=== PATIENT | male | born 1930 | race Caucasian/White ===

== ENCOUNTER 2016-11-20 01:31 | Inpatient (IN) | payer OTHER, MEDICARE ==
[~2016-11-20] VITALS: Ht 172.7 cm; Wt 101.2 kg
[~2016-11-20 01:31] MED LIST: AUGMENTIN 875 M1 TAB PO; FLOMAX(MONOGRA0.4 MG PO; FUROSEMIDE20 M1 PO; GABAPENTIN100 M2 PO; HYDROCODON-ACE1 EAC3 PO; LISINOPRIL10 M1 PO; LOTRIMIN CR1 %/30 GM TOP; METFORMIN HCL1000 M1 PO; METOPROLOL SUCC25 M1 PO; METOPROLOL TART25 M1 PO; PIOGLITAZONE HC30 M1 PO; SIMVASTATIN40 M1 PO; SPIRIVA18 MCG INH; VENTOLIN HFA18 GM INH; WARFARIN SODIUM5 M1 PO
--- NOTE | 2016-11-20 01:34 | ED DYSPNEA/ASTHMA COMPLAINT ---
History of Present Illness General Chief Complaint: Dyspnea (COPD, CHF, Other) Stated Complaint: BIBA FOR SOB Source: patient, old records, EMS Exam Limitations: clinical condition Vital Signs & Intake/Output Vital Signs & Intake/Output Vital Signs Date Time Temp Pulse Resp B/P Pulse O2 O2 Flow FiO2 Ox Delivery Rate 11/20 0304 97 BIPAP 50% 11/20 0150 67 97 11/20 0134 99.4 72 24 193/86 98 CPAP 10L Allergies Coded Allergies: NO KNOWN ALLERGIES (12/27/13) Reconcile Medications Albuterol Sulfate (Ventolin Hfa) 18 GM HFA.AER.AD 2 PUF INH TIDPRN PRN SHORTNESS OF BREATH Furosemide 20 MG TABLET 20 MG PO 7:30 AM, & 4:30 PM CHF Gabapentin 100 MG CAPSULE 200 MG PO TID pain Hydrocodone/Acetaminophen (Hydrocodon-Acetaminoph 7.5-325) 1 EACH TABLET 1-2 TAB PO Q4-6 PRN PRN PAIN Lisinopril 10 MG TABLET 1 TAB PO DAILY HEART (Reported) Metformin HCl 1,000 MG TABLET 1 TAB PO BID DIABETES (Reported) Metoprolol Tartrate 25 MG TABLET 6.25 TAB PO BID HEART Simvastatin (Simvastatin*) 40 MG TABLET 1 TAB PO QPM CHOLESTEROL (Reported) Tamsulosin Hydrochloride (Flomax) 0.4 MG CAP.ER.24H 1 CAP PO DAILY bph Tiotropium [place] (Spiriva) 18 MCG CAP.W.DEV 1 PUF INH 1000 copd Warfarin Sodium 5 MG TABLET 1 TAB PO 1700 BLOOD THINNER (Reported) Triage Nurses Notes Reviewed? yes Onset: Abrupt Duration: hour(s): Timing: single episode today Severity: moderate, severe Activities at Onset: sleep Prior Episodes/Possible Cause: occasional episodes Modifying Factors: Improves With: other (BETTER WITH cpap IN ROUTE). Associated Symptoms: DYSPNEA HPI: 86-year-old gentleman history of diastolic dysfunction and aortic stenosis presents with sudden onset of dyspnea. He states that he had a colonoscopy 4 days ago. It went well. However, since then, he has had worsening dyspnea. Approximate one hour prior presentation to the ED, he awoke with worse dyspnea. 911 was called. The medics found him with an O2 sat of 76%. He was placed on CPAP immediately. Per the medics, "he immediately started breathing better. When we took him off to transfer him into the ED, she started having a rapid respiratory rate again." He arrives with significant respiratory distress, unable to speak in complete sentences. However, he denies chest pain, increased swelling of lower extremities, cough, phlegm, syncopal type symptoms. Past History Travel History Traveled to [place] past 21 day No Medical History Any Pertinent Medical History? see below for history Neurological: NEUROPATHY Cardiovascular: aortic stenosis, cardiomyopathy, CHF, hypertension, hyperlipidemia, PACEMAKER Musculoskeletal: ARTHRITIS Endocrine: diabetes History of MRSA: No History of VRE: No History of CDIFF: No Surgical History Surgical History: non-contributory Psychosocial History Who do you live with Spouse What is your primary language Gibraltarian Family History Hx Contributory? No Review of Systems Review of Systems Constitutional: Reports: no symptoms. EENTM: Reports: no symptoms. Respiratory: Reports: no symptoms. Cardiovascular: Reports: no symptoms. GI: Reports: no symptoms. Genitourinary: Reports: no symptoms. Musculoskeletal: Reports: no symptoms. Skin: Reports: no symptoms. Neurological/Psychological: Reports: no symptoms. Hematologic/Endocrine: Reports: no symptoms. Immunologic/Allergic: Reports: no symptoms. All Other Systems: Reviewed and Negative Physical Exam Physical Exam General Appearance: well developed/nourished, moderate distress Head: atraumatic, normal appearance Eyes: Bilateral: normal appearance. Ears, Nose, Throat: normal pharynx, normal ENT inspection, hearing grossly normal Neck: normal inspection, supple, full range of motion Respiratory: accessory muscle use, DIMINISHED BREATH SOUNDS AT BASES, MODERATE RESPIRATORY DISTRESS WITH BELLY BREATHING Cardiovascular: regular rate/rhythm Gastrointestinal: normal bowel sounds, soft, non-tender, no organomegaly Extremities: normal inspection, normal capillary refill, normal range of motion, TRACE EDEMA Neurologic/Psych: no motor/sensory deficits, awake, alert, oriented x 3 Skin: intact, normal color, warm/dry Core Measures ACS in differential dx? No Severe Sepsis Present: No Septic Shock Present: No Progress Differential Diagnosis: asthma, AMI, bronchitis, CHF, COPD, musculoskeletal pain , pneumonia Plan of Care: Orders Procedure Date/time Status Patient Data 11/20 0431 Active BIPAP 11/20 0150 Complete PARTIAL THROMBOPLASTIN TIME 11/20 0141 Complete PROTHROMBIN TIME 11/20 0141 Complete BLOOD CULTURE 11/20 0140 Active ARTERIAL BLOOD GAS (GEN) 11/20 0138 Complete BLOOD CULTURE 11/20 0138 Active TROPONIN LEVEL 11/20 137 Complete LIPASE 11/20 137 Complete HEPATIC FUNCTION PANEL 11/20 137 Complete CBC WITHOUT DIFFERENTIAL 11/20 137 Complete B-TYPE NATRIURETIC PEP (BNP) 11/20 137 Complete BASIC METABOLIC PANEL 11/20 137 Complete AMYLASE 11/20 137 Complete EKG 11/20 132 Active Laboratory Tests 11/20/16 0300: pH 7.42, pCO2 39, pO2 99, HCO3 25, ABG O2 Sat (Measured) 97.0, P-50 (Temp Corrected) N, Carboxyhemoglobin 0.3 L, O2 Concentration % .50, Respiration Rate 24, O2 Delivery Method BIPAP, Vent Mode ST, Expiratory Pressure 6, Inspiratory Pressure 20, Phlebotomy Draw Site RIGHT RADIAL 11/20/16155: Anion Gap 10, Estimated GFR > 60, BUN/Creatinine Ratio 16.3, Glucose 159 H, Calcium 8.6, Total Bilirubin 1.7 H, Direct Bilirubin 0.9 H, AST 52, ALT 46, Alkaline Phosphatase 175 H, Troponin I 0.02, Cxx-W-Rlyqbxyfcsj Pept 1070 H, Total Protein 7.1, Albumin 3.3 L, Amylase 41, Lipase 154, PT 17.6 H, INR 1.68 H, APTT 31, CBC w Diff NO MAN DIFF REQ, RBC 3.91 L, MCV 88.2, MCH 28.8, RDW 15.3 H, MPV 7.4, Gran % 75.8 H, Lymphocytes % 11.5 L, Monocytes % 11.9 H, Eosinophils % 0, Basophils % 0.8, Absolute Granulocytes 9.4 H, Absolute Lymphocytes 1.4, Absolute Monocytes 1.5 H, Absolute Eosinophils 0, Absolute Basophils 0.1, PUBS MCHC 32.7 L Microbiology 11/20 158 BLOOD: Blood Culture - RECD 11/20 154 BLOOD: Blood Culture - RECD Diagnostic Imaging: Viewed by Me: Radiology Read. Discussed w/RAD: Radiology Read. CXR Impression: pulmonary edema Initial ED EKG: PACED Comments: PATIENT: NANDO HINSON PRESENT AGE: 86 PATIENT ACCOUNT NO: [id number] : 31 LOCATION: [facility] ORDERING PHYSICIAN: RUBENS CASTRO MD SERVICE DATE: 11/20/16 EXAM TYPE: RAD - XRY-PORTABLE CHEST XRAY EXAMINATION: XR PORTABLE CHEST CLINICAL INFORMATION: Dyspnea COMPARISON: 11/14/2016 TECHNIQUE: Portable AP view of the chest was obtained. FINDINGS: Pacer generators are seen in both the left and right chest wall with leads unchanged in positioning. Cardiac leads overlie the chest. Low lung volumes. Perihilar hazy opacities with small pleural effusions are present. Bibasilar opacities associated. No pneumothorax. The cardiomediastinal silhouette remains prominent, with a calcified aorta. IMPRESSION: Findings most suggestive of pulmonary edema. Small pleural effusions. DICTATED BY: GREG OCASIO MD DATE/TIME DICTATED:11/20/16355 ELECTRICAL AND INSTRUMENTATION MANAGER:ZACK DATE/TIME TRANSCRIBED:11/20/16355 CONFIDENTIAL, DO NOT COPY WITHOUT APPROPRIATE AUTHORIZATION. <Electronically signed in Other Vendor System> SIGNED BY: GREG OCASIO MD 11/20 0404 Departure Departure Disposition: STILL A PATIENT Condition: Stable Clinical Impression Primary Impression: Flash pulmonary edema Referrals: CHERYL JESUS MD (PCP/Family) Departure Forms: Customer Survey General Discharge Information Admission Note Spoke With: LINETTE NIETO MD Documentation of Exam: Documentation of any treatments & extenuating circumstances including Concerns Regarding Discharge (functional status, medication knowledge or non-compliance, living conditions, etc.) that warrant an admission rather than observation: pt with flash pulmonary edema, with 02 sat 76% in the field, requiring bipap, nitrates, lasix... now feeling better... stable for tele. cards consult in AM. Critical Care Note Critical Care Note Critical Care Time: 30-74 min
[2016-11-20 03:08] LABS: ABSOLUTE BASOPHIL COUNT 0.1 /CUMM (0.0-0.2); ABSOLUTE EOSINOPHIL COUNT 0 /CUMM (0.0-0.7); ABSOLUTE GRANULOCYTE CT 9.4 /CUMM (1.4-6.5); ABSOLUTE LYMPH COUNT 1.4 /CUMM (1.2-3.4); ABSOLUTE MONOCYTE COUNT 1.5 /CUMM (0.10-0.60); BASOPHIL % 0.8 % (0.0-2.0); EOSINOPHIL % 0 % (0-5); GRANULOCYTE % 75.8 % (42.2-75.2); HEMATOCRIT 34.5 % (42-52); MEAN CORPUSCULAR HGB 28.8 PG (27.0-31.0); MEAN CORPUSCULAR HGB CONC 32.7 G/DL (33.0-37.0); MEAN CORPUSCULAR VOLUME 88.2 FL (80.0-94.0); MEAN PLATELET VOLUME 7.4 FL (7.4-10.4); PLATELET COUNT 252 /CUMM (130-400); RBC DISTRIBUTION WIDTH 15.3 % (11.5-14.5); RED BLOOD CELL CT 3.91 /CUMM (4.70-6.10); WHITE BLOOD CELL COUNT 12.4 /CUMM (4.8-10.8)
[2016-11-20 03:29] LABS: PT 17.6 SEC (9.4-12.5); PTT 31 SEC (25-37)
--- NOTE | 2016-11-20 04:04 | RADIOLOGY REPORT ---
EXAMINATION: XR PORTABLE CHEST CLINICAL INFORMATION: Dyspnea COMPARISON: 11/14/2016 TECHNIQUE: Portable AP view of the chest was obtained. FINDINGS: Pacer generators are seen in both the left and right chest wall with leads unchanged in positioning. Cardiac leads overlie the chest. Low lung volumes. Perihilar hazy opacities with small pleural effusions are present. Bibasilar opacities associated. No pneumothorax. The cardiomediastinal silhouette remains prominent, with a calcified aorta. IMPRESSION: Findings most suggestive of pulmonary edema. Small pleural effusions.
--- NOTE | 2016-11-20 05:33 | History & Physical ---
SANTY MIXON,SUKUMAR 11/20/16 0533: General Information and HPI History of Present Illness: 86-year-old man with past medical history significant for congestive heart failure status post pacemaker, sick sinus syndrome, aortic stenosis, cardiomyopathy, atrial fibrillation and probable COPD seen for evaluation of slowly progressive worsening shortness of breath. Patient was recently admitted to [facility] from 06/10/16-06/18/16 for acute hypoxic respiratory failure secondary to community-acquired pneumonia and potential underlying pulmonary disease. Patient was treated with intravenous antibiotics and diuretics with instruction to follow-up with Dr. Nieves as an outpatient for further evaluation. Patient is currently denying have seen any black top raker. Patient reports having recently undergone a colonoscopy on 11/17/16 and completing a bowel prep regimen where he was reportedly diagnosed with rectal cancer. He reports progressively worsening shortness of breath since this time with associated fatigue and palpitations. He reports medication compliance and denies consumption of any overly salty meals however does admit to persistent loose bowel movements secondary to the bowel prep with scant amounts of blood present. Otherwise he denies any blurred/double vision, lightheadedness/dizziness, headache, fever, chills, chest pain, cough, nausea, vomiting, numbness/tingling, urinary frequency/urgency/burning/pain, constipation. 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, uses 3.0 L oxygen as needed during the day and CPAP with oxygen at night, he reports medication compliance as his takes care of his medications Allergies/Medications Allergies: Coded Allergies: NO KNOWN ALLERGIES (12/27/13) Home Med list Albuterol Sulfate (Ventolin Hfa) 18 GM HFA.AER.AD 2 PUF INH TIDPRN PRN SHORTNESS OF BREATH Furosemide 20 MG TABLET 20 MG PO 7:30 AM, & 4:30 PM CHF Gabapentin 100 MG CAPSULE 200 MG PO TID pain Lisinopril 10 MG TABLET 1 TAB PO DAILY HEART (Reported) Metformin HCl 1,000 MG TABLET 1 TAB PO BID DIABETES (Reported) Metoprolol Tartrate 25 MG TABLET 12.5 TAB PO DAILY heart Simvastatin (Simvastatin*) 40 MG TABLET 1 TAB PO QPM CHOLESTEROL (Reported) Tamsulosin Hydrochloride (Flomax) 0.4 MG CAP.ER.24H 1 CAP PO DAILY bph Tiotropium [place] (Spiriva) 18 MCG CAP.W.DEV 1 PUF INH 1000 copd Warfarin Sodium 5 MG TABLET 1 TAB PO 1700 BLOOD THINNER (Reported) Past History Travel History Traveled to [place] past 21 day No Medical History Neurological: NEUROPATHY Cardiovascular: aortic stenosis, cardiomyopathy, CHF, hypertension, hyperlipidemia, PACEMAKER Musculoskeletal: ARTHRITIS Endocrine: diabetes History of MRSA: No History of VRE: No History of CDIFF: No Surgical History Surgical History: non-contributory Past Family/Social History Psychosocial History ETOH Use: denies use Review of Systems Review of Systems Constitutional: Reports: see HPI. Exam & Diagnostic Data Last 24 Hrs of Vital Signs/I&O Vital Signs Date Time Temp Pulse Resp B/P Pulse O2 O2 Flow FiO2 Ox Delivery Rate 11/20 0544 68 98 11/20 0441 98.9 61 20 156/68 97 BIPAP 50% 11/20 0304 97 BIPAP 50% 11/20 0150 67 97 11/20 0134 99.4 72 24 193/86 98 CPAP 10L Intake & Output 11/20 0800 11/20 0000 11/19 1600 Intake Total Output Total 500 Balance -500 Output, Urine 500 Patient 108.862 kg Weight Physical Exam General Appearance Alert, Oriented X3, Cooperative, No Acute Distress Skin No Rashes, No Breakdown, No Significant Lesion HEENT Atraumatic, PERRLA, EOMI, Mucous Membr. moist/pink Neck Supple, No JVD, +2 Carotid Pulse wo Bruit Cardiovascular Regular Rate, Normal S1, Normal S2, No Murmurs Lungs Diminished airflow, minimal bibasilar crackles Abdomen Normal Bowel Sounds, Soft Neurological Normal Speech, Normal Tone, Cranial Nerves 3-12 NL Extremities No Cyanosis, Normal Pulses, 1+ bilateral lower extremity swelling Vascular Normal Pulses, Pulses Symmetrical Last 24 Hrs of Labs/Hunter: Laboratory Tests 11/20/16 0300: pH 7.42, pCO2 39, pO2 99, HCO3 25, ABG O2 Sat (Measured) 97.0, P-50 (Temp Corrected) N, Carboxyhemoglobin 0.3 L, O2 Concentration % .50, Respiration Rate 24, O2 Delivery Method BIPAP, Vent Mode ST, Expiratory Pressure 6, Inspiratory Pressure 20, Phlebotomy Draw Site RIGHT RADIAL 11/20/16 0156: Anion Gap 10, Estimated GFR > 60, BUN/Creatinine Ratio 16.3, Glucose 159 H, Calcium 8.6, Total Bilirubin 1.7 H, Direct Bilirubin 0.9 H, AST 52, ALT 46, Alkaline Phosphatase 175 H, Troponin I 0.02, Hdm-L-Bstbwsywham Pept 1070 H, Total Protein 7.1, Albumin 3.3 L, Amylase 41, Lipase 154, PT 17.6 H, INR 1.68 H, APTT 31, CBC w Diff NO MAN DIFF REQ, RBC 3.91 L, MCV 88.2, MCH 28.8, RDW 15.3 H, MPV 7.4, Gran % 75.8 H, Lymphocytes % 11.5 L, Monocytes % 11.9 H, Eosinophils % 0, Basophils % 0.8, Absolute Granulocytes 9.4 H, Absolute Lymphocytes 1.4, Absolute Monocytes 1.5 H, Absolute Eosinophils 0, Absolute Basophils 0.1, PUBS MCHC 32.7 L Microbiology 11/20 158 BLOOD: Blood Culture - RECD 11/20 154 BLOOD: Blood Culture - RECD Diagnostic Data EKG Results Paced rhythm with LBBB CXR Results Pulmonary edema with small pleural effusions Assessment/Plan Assessment: 86-year-old man with multiple medical problems significant for multiple cardiovascular conditions seen for evaluation of worsening shortness of breath after completing a bowel prep in anticipation for colonoscopy. ED course: -Vitals: Temp 98.9-99.4, HR 61-72, RR 20-24, BP 156-193/68-86, O2 97-98% on BiPAP at 50% FiO2 -Significant Labs: WBC 12.4, Hgb/HCT 11.3/34.5, normalserumchemistries T bilirubin 1.7, T bilirubin 0.9, AST/ALT 52/46, alk phosphatase 175, troponin 0.02, BNP 1070, amylase 41, lipase 154, INR 1.68, AB.42/39/99/25 -Studies: Chest x-ray demonstrated findings most suggestive of pulmonary edema with small pleural effusions, EKG paced rhythm heart with LBBB and no ST segment changes -Interventions: Lasix 40 mg IV once, nitro bid 2 g Pulmonary edema, possibly secondary to congestive heart failure exacerbation Patient with multiple cardiovascular problems seen for evaluation of worsening shortness of breath after ingesting a large amount of fluid in anticipation for a colonoscopy. Patient's shortness of breath is most likely secondary to his increased fluid intake. Most recent echocardiogram on 06/14/16 demonstrated mild concentric left ventricular hypertrophy with an ejection fraction of 55% and elevated right ventricular pressure. Patient was reportedly hypoxic to 76% on room air in the field for which she was immediately placed on CPAP. ABG was within normal limits upon initial evaluation and patient was placed on BiPAP at 50% FiO2. Chest x-ray suggestive of pulmonary edema with small pleural effusions. Patient's physical exam and straight no JVD and 1+ bilateral lower extremity edema. BNP is minimally elevated. Patient of Dr. Carrillo -Telemetry -Strict I's and O's, daily weights -Trend troponins/EKGs -Last echo 06/14/16: EF 55%, mild concentric LVH, RV 48 mmHg -Lasix 40 mg IV daily -Lisinopril 10 mg by mouth daily -Metoprolol 6.25 mg by mouth twice a day -Cardiology consult History of bright red blood per rectum Patient reports having scant amount of right red blood per rectum with bowel movements over the past 5 years. Patient recently underwent colonoscopy with Dr. Govea whom removed a large 4 cm to phytic lesion from the mucosal surface of the colon/rectum highly suspicious of cancer, pathology pending. This result was portably discussed with the patient by Dr. Govea. Patient does not wish to pursue any treatments in regards this finding. -Monitor for hemodynamic instability -Daily CBC History of atrial fibrillation EKG on initial evaluation demonstrated a paced rhythm. -Daily INR, dose Coumadin accordingly Tdy-owejkyu-vulzjqvif diabetes mellitus -Accu-Cheks 3 times a day before meals/at bedtime -Hold oral hypoglycemics -NovoLog sliding scale insulin Probable COPD Extensive past history of smoking, maintained on 3.0 L supplemental oxygen at home as needed. -TRC with albuterol/ipratropium when necessary -Supplemental oxygen as needed, goal >92% -Spiriva/Ventolin -Nocturnal BiPAP Hypertension-NEHA inhibitor/beta sage as above Hyperlipidemia-atorvastatin 20 mg by mouth daily Benign prostatic hypertrophy-tamsulosin 0.4 mg by mouth daily Pain plan-acetaminophen Diet-heart healthy diet DVT prophylaxis-on Coumadin CODE STATUS-DNR/DNI As Ranked By This Provider Problem List: 1. Flash pulmonary edema Core Measures/Miscellaneous Acute Coronary Syndrome ACS Diagnosis: No Cerebrovascular Accident CVA/TIA Diagnosis: No Congestive Heart Failure CHF Diagnosis: No Venous Thromboembolism VTE Risk Factors: Acute medical illness, Age > 40, CHF or Resp failure [facility] prophylaxis d/t: No contraindications No VTE Pharm Prophylaxis d/t: No contraindications VTE Diagnosis: No VTE Type: NONE VTE Confirmed by (Test): NONE Severe Sepsis Severe Sepsis Present: No Septic Shock Septic Shock Present: No Miscellaneous Documentation Attending Case Discussed With: GERSON MIXON,[facility] Primary Care Physician: EDIN MIXON,[facility] Patient sees these Specialists Dr. Gerardo Garcia Level of Patient Care: Telemetry Consults Needed: Consulting Specialty: Cardiology [place] 11/20/16 0613: Resident Review Statement Resident Statement: examined this patient, discussed with internet marketing specialist, agreed with internet marketing specialist, amended to note Other Findings: 86-year-old gentleman with past medical history of hypertension, mild , COPD? On nocturnal CPAP, and 2 L oxygen home when necessary, ex-smoker,afib with pacemaker and coumadin, hypertension, hyperlipidemia, diabetes,BPH?, Recent rectal biopsy(post colonoscopy due to bloody stool) with possibility of cancer, came to the hospital by ambulance with chief complaint of shortness of breath and being hypoix in room air. Patient reported he had colonoscopy about 4 days ago and after that he developed generalized malaise feeling and shortness of breath on exertion but no coughing or chest pain. Today after eating home fries his shortness of breath became worse,mild dizziness and palpation was also reported. Patient reports he is still has mild diarrhea after 4 days post colonoscopy. Patient denies any fever, chills, abdominal pain, headache. Upon arrival patient was put on BiPAP and nitroglycerin and IV Lasix was given and patient diuresed about half a liter of urine. Vital signs are within normal limits except been I BiPAP HEENT Atraumatic, PERRLA, EOMI Neck Supple, No JVD, No thryomegaly Lymphatic Cervical nl Cardiovascular irrigular Rate, Normal S1, Normal S2,3/6 systloc murmur Lungs bilateral basal crackles Abdomen Normal Bowel Sounds, distended, no tenderness Extremities 1-2 + bilateral peda edema CXR: Findings most suggestive of pulmonary edema. Small pleural effusions. Last ECHO in Jun 2016 EF 55%,mild WBC 12.4, hemoglobin 11.3, INR 1.68,Jas 1.7, BNP 1070, ALP 175 ABG unremarkable Patient received 40 mg IV lasix, nitro bid 2 gm Assessment and plan CHF exacerbation/pulmonary edema -possibly due to volume overload because of the bowel prep * Admit to telemetry for 24 hours monitoring * Rule out any cardiac injury with serial troponins and EKGs x 3 * IV Lasix 40 mg once a day * Daily weights,strict I's and O's and diabetic/chf diet * Cardiology consult #HTN,afib,HLP -Continue lisinopril and metoprolol -Continue statin #afib on coumadin -dose warfarin based on daily INR #COPD/ RAJAN? -Nocturnal CPAP -TRC nebs -Continue Spiriva #BPH -Continue Flomax #DM,DM neuropathy -Hold oral medications, sliding scale insulin, fingersticks, diabetic diet -Continue gabapentin 3 times a day #Anemia with history of rectal bleeding and possibly New rectal cancer #DVT prophylaxis is warfarin and Alps, diabetes and CHF diet, Tylenol for pain, DNR/DNI Please confirm CMR in the morning ROMEO MIXON,INEZ 11/20/16 1021: Attending MD Review Statement Attending Statement Attending MD Statement: examined this patient, discuss w/resident/PA/SURVEY SUPERVISOR, agreed w/resident/PA/SURVEY SUPERVISOR, reviewed EMR data (avail) Attending Assessment/Plan: Patient seen and examined. Plan of care discussed with the medical team and the patient. Available lab work and radiology test reports were reviewed. In summary this is a 86-year-old man with past medical history significant for congestive heart failure status post pacemaker, sick sinus syndrome, aortic stenosis, cardiomyopathy, atrial fibrillation and probable COPD seen for evaluation of slowly progressive worsening shortness of breath. Patient recently underwent a colonoscopy and was diagnosed with rectal cancer. The pathology report still pending. Patient does not want to get treated for rectal cancer. On evaluation in the emergency room was found to be hypoxic requiring BiPAP with 10 L of oxygen. He was afebrile but tachypneic with pulse rate of 72 and blood pressure 193/86. Chest exam shows bilateral crackles at the bases. Abdomen is obese soft nontender. Heart sounds S1 plus S2. Neuro exam is nonfocal. No papilledema is noted. Less were reviewed. Patient has elevated BNP, alkaline phosphatase days, and bilirubin. His WBC count is also elevated at 12.4. Chest x-ray shows small pleural effusions and pulmonary edema. Assessment plan * Acute pulmonary edema and congestive heart failure- plans to treat with IV Lasix. We'll obtain cardiac consult. * History of sick sinus syndrome status post pacemaker- note that patient has a previous nonfunctioning pacemaker on the right chest wall. * Recent diagnosis rectal cancer- pathology report is not available; patient does not want to get treated for rectal cancer * History of atrial fibrillation currently rate controlled- his INR is subtherapeutic; we'll need to adjust Coumadin dose upward * History of your stenosis
[2016-11-20] MEDS ORDERED: METOPROLOL TART25 M1 PO (05:38)
[2016-11-20 06:13] VITALS: BP 132/56
[2016-11-20 08:15] VITALS: BP 140/80
[2016-11-20 08:50] LABS: PT 17.4 SEC (9.4-12.5)
--- NOTE | 2016-11-20 10:20 | Admission Certification ---
Admission Certification Certification Statement - As attending physician, I certify that at the time of - admission, based on clinical presentation, severity of - symptoms, need for further diagnostic testing and - therapeutic interventions, and risk of adverse outcomes - without in-hospital treatment, in my clinical assessment, - this patient requires an acute hospital stay for a minimum - of two nights or longer. I have also considered psychsocial - factors such as support system, advanced age, financial - issues, cognitive issues, and failed out-patient treatments, - past re-admission history, safety of patient, and lack of - compliance as applicable. Specific rationale supporting this admission is: Congestive heart failure
--- NOTE | 2016-11-20 13:27 | Cons- Cardiology ---
General Information and HPI Consulting Request Date of Consult: 11/20/16 Requested By: GERSON MIXON,LINETTE Reason for Consult: Shortness of breath Source of Information: patient, old records History of Present Illness: This is a pleasant 86-year-old male with a past medical history of atrial fibrillation on anticoagulation, previous AV roopa ablation with permanent pacemaker, congestive heart failure, cardiomyopathy, aortic stenosis, obesity with hypoventilation, COPD, hypertension, hyperlipidemia, and diabetes mellitus who presents to [facility] with a chief complaint of progressive shortness of breath over the last few weeks. The shortness of breath was not associated with any chest pain, palpitations, orthopnea, paroxysmal nocturnal dyspnea, or increasing lower extremity edema. Patient did recently undergo a colonoscopy earlier this week and reports there was a concern for rectal cancer. Denies syncope, headache, slurring of speech, fever, chills, or focal weakness. He apparently required BiPAP in the emergency room but during my interview was comfortable on nasal cannula oxygen. He does have a mask at home. Allergies/Medications Allergies: Coded Allergies: NO KNOWN ALLERGIES (12/27/13) Home Med List: Albuterol Sulfate (Ventolin Hfa) 18 GM HFA.AER.AD 2 PUF INH TIDPRN PRN SHORTNESS OF BREATH Furosemide 20 MG TABLET 20 MG PO 7:30 AM, & 4:30 PM CHF Gabapentin 100 MG CAPSULE 200 MG PO TID pain Lisinopril 10 MG TABLET 1 TAB PO DAILY HEART (Reported) Metformin HCl 1,000 MG TABLET 1 TAB PO BID DIABETES (Reported) Metoprolol Tartrate 25 MG TABLET 12.5 TAB PO DAILY heart Simvastatin (Simvastatin*) 40 MG TABLET 1 TAB PO QPM CHOLESTEROL (Reported) Tamsulosin Hydrochloride (Flomax) 0.4 MG CAP.ER.24H 1 CAP PO DAILY bph Tiotropium [place] (Spiriva) 18 MCG CAP.W.DEV 1 PUF INH 1000 copd Warfarin Sodium 5 MG TABLET 1 TAB PO 1700 BLOOD THINNER (Reported) Review of Systems Review of Systems: Review of systems as per HPI. The remainder of a 10 point review of systems was reviewed and was otherwise negative. 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 Home Smoking Status: Former Smoker ETOH Use: denies use Exam & Diagnostic Data Vital Signs and I&O Vital Signs Date Time Temp Pulse Resp B/P Pulse O2 O2 Flow FiO2 Ox Delivery Rate 11/20 1010 64 130/70 11/20 1009 64 130/70 11/20 1009 62 130/70 11/20 0922 Nasal 5.0L Cannula 11/20 0920 92 Nasal 5.0L Cannula 11/20 0815 97.7 63 20 140/80 98 BIPAP 11/20 0800 92 BIPAP 50% 11/20 0613 98.0 62 24 132/56 96 BIPAP 11/20 0544 68 98 11/20 0441 98.9 61 20 156/68 97 BIPAP 50% 11/20 0304 97 BIPAP 50% 11/20 0150 67 97 11/20 0134 99.4 72 24 193/86 98 CPAP 10L Intake & Output 11/20 1600 11/20 0800 11/20 0000 11/19 1600 11/19 0800 11/19 0000 Intake Total Output Total 500 Balance -500 Output, Urine 500 Patient 240 lb Weight Physical Exam: General: no apparent distress. Alert. On nasal cannula. Laying flat. Eyes: No obvious scleral icterus. HEENT: No jugular venous distention or abnormal jugular venous pulsations. Cardiovascular: Normal intensity S1/S2. Regular. One out of 6 systolic murmur. Respiratory: Trace basilar crackles without wheezing Abdomen: no guarding or rebound tenderness. Musculoskeletal: No clubbing or cyanosis noted, no edema Skin: Warm Neurologic: No gross focal deficits noted. Labs/Hunter Results: Laboratory Tests 11/20 11/20 0655 0300 Blood Gas pH (7.35 - 7.45 PH) 7.42 pCO2 (35 - 45 TORR) 39 pO2 (80 - 100 TORR) 99 HCO3 (21 - 28 MEQ/L) 25 ABG O2 Sat (Measured) (>96.0 %) 97.0 P-50 (Temp Corrected) N Carboxyhemoglobin (1.5 - 5.0 %) 0.3 L O2 Concentration % .50 Respiration Rate (BPM) 24 O2 Delivery Method BIPAP Vent Mode ST Expiratory Pressure (CM H2O P) 6 Inspiratory Pressure (CM H2O P) 20 Chemistry Troponin I (<0.11 ng/ml) 0.03 Coagulation PT (9.4 - 12.5 SEC) 17.4 H INR (0.90 - 1.17) 1.67 H Miscellaneous Phlebotomy Draw Site RIGHT RADIAL 11/20 0156 Chemistry Sodium (137 - 145 mmol/L) 141 Potassium (3.5 - 5.1 mmol/L) 4.2 Chloride (98 - 107 mmol/L) 104 Carbon Dioxide (22 - 30 mmol/L) 27 Anion Gap (5 - 16) 10 BUN (9 - 20 mg/dL) 13 Creatinine (0.7 - 1.2 mg/dL) 0.8 Estimated GFR (>60 ml/min) > 60 BUN/Creatinine Ratio (7 - 25 %) 16.3 Glucose (65 - 99 mg/dL) 159 H Calcium (8.4 - 10.2 mg/dL) 8.6 Total Bilirubin (0.2 - 1.3 mg/dL) 1.7 H Direct Bilirubin (< 0.4 mg/dL) 0.9 H AST (17 - 59 U/L) 52 ALT (21 - 72 U/L) 46 Alkaline Phosphatase (< 127 U/L) 175 H Troponin I (<0.11 ng/ml) 0.02 Yfw-M-Blwhrkxgfmh Pept (<125 pg/mL) 1070 H Total Protein (6.3 - 8.2 g/dL) 7.1 Albumin (3.5 - 5.0 g/dL) 3.3 L Amylase (30 - 110 U/L) 41 Lipase (23 - 300 U/L) 154 Coagulation PT (9.4 - 12.5 SEC) 17.6 H INR (0.90 - 1.17) 1.68 H APTT (25 - 37 SEC) 31 Hematology CBC w Diff NO MAN DIFF REQ WBC (4.8 - 10.8 /CUMM) 12.4 H RBC (4.70 - 6.10 /CUMM) 3.91 L Hgb (14.0 - 18.0 G/DL) 11.3 L Hct (42 - 52 %) 34.5 L MCV (80.0 - 94.0 FL) 88.2 MCH (27.0 - 31.0 PG) 28.8 RDW (11.5 - 14.5 %) 15.3 H Plt Count (130 - 400 /CUMM) 252 MPV (7.4 - 10.4 FL) 7.4 Gran % (42.2 - 75.2 %) 75.8 H Lymphocytes % (20.5 - 51.1 %) 11.5 L Monocytes % (1.7 - 9.3 %) 11.9 H Eosinophils % (0 - 5 %) 0 Basophils % (0.0 - 2.0 %) 0.8 Absolute Granulocytes (1.4 - 6.5 /CUMM) 9.4 H Absolute Lymphocytes (1.2 - 3.4 /CUMM) 1.4 Absolute Monocytes (0.10 - 0.60 /CUMM) 1.5 H Absolute Eosinophils (0.0 - 0.7 /CUMM) 0 Absolute Basophils (0.0 - 0.2 /CUMM) 0.1 PUBS MCHC (33.0 - 37.0 G/DL) 32.7 L Diagnostic Data EKG Results Tracing was personally reviewed and shows ventricular paced rhythm with underlying atrial fibrillation CXR Results IMPRESSION: Findings most suggestive of pulmonary edema. Small pleural effusions. Other Results Echocardiogram from June 2016 Left ventricular cavity size at the upper limits of normal. Moderate concentric left ventricular hypertrophy. Abnormal septal motion consistent with pacemaker activation. No other obvious regional wall motion abnormalities. Normal left ventricular ejection fraction visually estimated at > 55 Mild right ventricular dilatation. Catheter/pacemaker wire in the right ventricular cavity. Mild to moderate right atrial dilatation. Catheter/pacemaker wire in the right atrial cavity. Mild to moderate left atrial dilatation. Trace to mild mitral regurgitation. Mild aortic stenosis. Mild tricuspid regurgitation. Mild pulmonary hypertension. Mildly dilated proximal ascending aorta (tube). Dilated inferior vena cava. Assessment/Plan Assessment/Plan 1. Shortness of breath 2. History of atrial fibrillation on anticoagulation 3. Previous AV node ablation with permanent pacemaker 4. Acute on chronic congestive heart failure with preserved ejection fraction 5. History of mild aortic stenosis 6. Obesity with hypoventilation/COPD 7. History of hypertension/hyperlipidemia/diabetes mellitus 8. Nonsustained wide-complex tachycardia Patient's shortness of breath has been slowly progressing over the last few weeks. Symptoms are likely multifactorial with a component of acute on chronic congestive heart failure. Agree with the Lasix 40 IV daily with strict I's and O 's and daily weights. The patient did have some nonsustained wide complex runs this morning which could represent NSVT versus tachycardia with aberrant conduction. Continue his outpatient cardiac medications including beta sage therapy. Continue on telemetry. A magnesium level should be checked. Adjust Coumadin dosing to target INR 2-3. In the absence of bronchospasm he may benefit from a higher beta sage dose future. Celso Boyle MD [facility] Consult Acknowledgment - Thank you for your consult request.
[2016-11-20 15:45] VITALS: BP 108/46
[2016-11-21 00:20] VITALS: BP 126/56
[2016-11-21 07:30] VITALS: BP 118/62
[2016-11-21] MEDS ORDERED: FLOMAX0.4 M1 PO (07:40)
--- NOTE | 2016-11-21 08:21 | PN- Student ---
Subjective Subjective: 86 y.o. male h/o atrial fibrillation, aortic stenosis, diastolic dysfunction, HTN, hyperlipidemia, DMII admitted with dyspnea worsening over 4 days. Pt says this started after he had a colonoscopy 4 days ago where he was diagnosed with a colorectal cancer. The day of admission he woke up from sleep with severe dyspnea and called 911 who found him with O2 sat of 75% and brought it up to 98% with CPAP 10L. Pt says he has oxygen at home which he uses during sleep and occasionally during the day when he needs it at 3L. CXR on admission showed pulmonary edema and small pleural effusions. Currently he is feeling well and has no complaints. He denies any chest pain or diffiuclty breathing with O2 in place. He has not been OOB. Appetite is good and he has been tolerating a regular diet. ROS: General: neg fever/chills Neuro: neg headache, visual changes Cardiac: neg chest pain, palpitations Lungs: neg SOB, cough GI: neg nausea/vomiting, diarrhea/constipation : neg dysuria, urgency, frequency MSK: neg joint pain, muslce aches, LE edema Objective Objective: Tele events: atrial flutter/atrial fibrillation, rate 59-60, QRS .10-.12, BBB General: awake and alert, sitting up in bed eating breakfast in no acute distress Neck: supple, no JVD noted Cardiac: S1 and S2 heard, irregularly irregular Lungs: no respiratory distress or accessory muscle use, CTA bilaterally, no W/R/ R MSK: no LE edema, pedal pulses 2+ bilaterally Psych: appropriate and cooperative with exam Results Results: Laboratory Tests 11/21/16 0620: Sodium Pending, Potassium Pending, Chloride Pending, Carbon Dioxide Pending, Anion Gap Pending, BUN Pending, Creatinine Pending, BUN/Creatinine Ratio Pending , Magnesium Pending, Total Bilirubin Pending, Direct Bilirubin Pending, AST Pending, ALT Pending, Alkaline Phosphatase Pending, Total Protein Pending, Albumin Pending, PT Pending, INR Pending 11/20/16 1320: Magnesium 1.7, Troponin I 0.02 11/20/16 0655: Troponin I 0.03, PT 17.4 H, INR 1.67 H 11/20/16 0300: pH 7.42, pCO2 39, pO2 99, HCO3 25, ABG O2 Sat (Measured) 97.0, P-50 (Temp Corrected) N, Carboxyhemoglobin 0.3 L, O2 Concentration % .50, Respiration Rate 24, O2 Delivery Method BIPAP, Vent Mode ST, Expiratory Pressure 6, Inspiratory Pressure 20, Phlebotomy Draw Site RIGHT RADIAL 11/20/166: Anion Gap 10, Estimated GFR > 60, BUN/Creatinine Ratio 16.3, Glucose 159 H, Calcium 8.6, Total Bilirubin 1.7 H, Direct Bilirubin 0.9 H, AST 52, ALT 46, Alkaline Phosphatase 175 H, Troponin I 0.02, Glj-Y-Cchvmsrdfgd Pept 1070 H, Total Protein 7.1, Albumin 3.3 L, Amylase 41, Lipase 154, PT 17.6 H, INR 1.68 H, APTT 31, CBC w Diff NO MAN DIFF REQ, RBC 3.91 L, MCV 88.2, MCH 28.8, RDW 15.3 H, MPV 7.4, Gran % 75.8 H, Lymphocytes % 11.5 L, Monocytes % 11.9 H, Eosinophils % 0, Basophils % 0.8, Absolute Granulocytes 9.4 H, Absolute Lymphocytes 1.4, Absolute Monocytes 1.5 H, Absolute Eosinophils 0, Absolute Basophils 0.1, PUBS MCHC 32.7 L Microbiology 11/20 015 BLOOD: Blood Culture - RECD 11/20 154 BLOOD: Blood Culture - RECD Assessment/Plan Assessment: 86 y.o. male h/o atrial fibrillation, aortic stenosis, diastolic dysfunction EF 55% on last Echo, HTN, hyperlipidemia, DMII admitted with dyspnea worsening over 4 days after colonoscopy found to have pulmonary edema on CXR. Possible cause of volume overload by bowel prep. Serial troponins and EKGs ruled out cardiac ischemia. Plan: Pulmonary edema: - continue IV Lasix 40 mg daily - daily weights, strict I/Os - O2 by nasal cannula, CPAP at night Afib, HTN, hyperlipidemia: - dose warfarin based on INR, INR target 2-3 - continue lisinopril, metoprolol, statin - follow cardiology recomendations DMII: - sliding scale insulin, diabetic diet - continue gabapentin
--- NOTE | 2016-11-21 08:28 | PN- Housestaff ---
BRAULIO SUÁREZ 11/21/16 0828: Subjective Follow-up For: Atrial fibrillation CHF Cardiomyopathy Aortic stenosis Rectal carcinoma Tele-Events Since Last Visit: Paced rhythm on telemetry. Subjective: Seen and examined patient, patient denies being in pain, fever chills shortness of breath. States that his abdomen feels distended. Denies any abdominal pain but endorses some discomfort. Review of Systems Constitutional: Denies: chills, diaphoresis, fever, malaise, weakness, unexplained weight loss. Cardiovascular: Denies: chest pain, edema, orthopena, palpitations, peripheral edema, syncope. Respiratory: Denies: cough, hemoptysis, orthopnea, short of breath, sputum production, stridor, wheezing. Objective Last 24 Hrs of Vital Signs/I&O Vital Signs Date Time Temp Pulse Resp B/P Pulse O2 O2 Flow FiO2 Ox Delivery Rate 11/21 1141 92 Nasal 5.0L Cannula 11/21 1034 62 120/62 11/21 1033 62 20 120/62 11/21 1032 62 120/62 11/21 0730 98.5 62 20 118/62 92 Nasal 5.0L Cannula 11/21 0031 60 95 11/21 0020 98.3 60 24 126/56 92 CPAP 11/21 0000 CPAP 11/20 2231 62 96 11/20 2151 60 114/40 11/20 1905 88 Nasal 4.0L Cannula Intake & Output 11/21 1600 11/21 0800 11/21 0000 Intake Total 350 680 Output Total 300 300 Balance 50 380 Intake, IV 0 Intake, Oral 350 680 Number 0 0 Bowel Movements Output, Urine 300 300 Patient 227 lb Weight Physical Exam General Appearance: Alert, Oriented X3, Cooperative, No Acute Distress Cardiovascular: Normal S1, Normal S2 Lungs: Clear to Auscultation, Normal Air Movement Abdomen: No Masses, distended Extremities: No Edema Current Medications: Current Medications Sig/Elier Start time Last Medication Dose Route Stop Time Status Admin Acetaminophen 650 MG Q6 PRN 11/20 0545 AC PO Albuterol Sulfate 3 ML BID 11/20 1000 AC 11/21 INH 1127 Atorvastatin Calcium 20 MG 1700 11/20 1700 AC 11/21 PO 1712 Furosemide 40 MG BID 11/21 2200 AC IV Furosemide 40 MG DAILY 11/20 1000 DC 11/21 IV 1033 Gabapentin 200 MG TID 11/20 1000 AC 11/21 PO 1712 Insulin Aspart 0 TIDAC 11/20 0800 AC 11/21 SC 0745 Lisinopril 10 MG DAILY 11/20 1000 AC 11/21 PO 1032 Magnesium Oxide 400 MG ONE ONE 11/21 0845 DC 11/21 PO 11/21 0846 1056 Magnesium Oxide 400 MG ONE ONE 11/20 1900 DC 11/20 PO 11/20 1901 2151 Metoprolol Tartrate 6.25 MG BID 11/20 1000 AC 11/21 PO 1034 Oxycodone/ 1 TAB Q6P PRN 11/20 0930 AC 11/20 Acetaminophen PO 1010 Tamsulosin HCl 0.4 MG DAILY 11/20 1000 AC 11/21 PO 1033 Tiotropium [place] 1 PUF 1000 11/20 1000 AC 11/21 INH 1033 Vancomycin HCl 1,500 MG ONCE ONE 11/21 1113 DC 11/21 Dextrose/Water 250 ML IV 11/21 1212 1223 Vancomycin HCl 1,000 MG DAILY 11/21 1036 DC Dextrose/Water 250 ML IV Warfarin Sodium 7.5 MG COUMADIN 1700 ONE 11/21 1700 DC 11/21 PO 11/21 1701 1712 Last 24 Hrs of Lab/Hunter Results Last 24 Hrs of Labs/Mics: Laboratory Tests 11/21/16 1148: CBC w Diff NO MAN DIFF REQ, RBC 3.98 L, MCV 87.1, MCH 28.8, RDW 15.2 H, MPV 7.4, Gran % 77.1 H, Lymphocytes % 11.6 L, Monocytes % 10.4 H, Eosinophils % 0 , Basophils % 0.9, Absolute Granulocytes 9.2 H, Absolute Lymphocytes 1.4, Absolute Monocytes 1.2 H, Absolute Eosinophils 0, Absolute Basophils 0.1, PUBS MCHC 33.0 11/21/16 0620: Anion Gap 8, Estimated GFR 58 L, BUN/Creatinine Ratio 21.7, Magnesium 1.8, Total Bilirubin 1.2, Direct Bilirubin 0.6 H, AST 26, ALT 37, Alkaline Phosphatase 123, Total Protein 6.3, Albumin 2.7 L, PT 17.1 H, INR 1.64 H Microbiology 11/21 1148 BLOOD: Blood Culture - RECD 11/21 1135 BLOOD: Blood Culture - RECD Assessment/Plan Assessment: 86-year-old gentlemen with pmh of COPD, hypertension, dyslipidemia, diabetes mellitus, cardiomyopathy, aortic stenosis, atrial fibrillation on warfarin s/p atrioventricular node ablation with initial permanent pacemaker implantation () with generator replacements (10/18/2001; 03/29/2006; 04/07/2015), heart failure with preserved EF, recent diagnosis of exophytic upper rectal cancer s/p elective colonoscopy (11/17/2016) after which he had worsening shortness of breath. Today his breathing has improved. WBC remains elevated at 12.0, 1 of 2 blood cultures prelim report shows gram-positive cocci in chains and clusters. Problem list HFpEF Aortic stenosis Atrial fibrillation Positive 1 out of 2 blood culture BPH Diabetes Colorectal cancer Plan Continue strict I's and O's, daily weights and IV diuresis. Cardiology is on board appreciate recommendations follow-up chest x-ray later today INR today 1.64, was dosed 7.5 mg of Coumadin today Continue home meds of Lopressor, lisinopril, statin Repeat CBC showed persistent elevated white count and IV vancomycin weightbase dosing was started after repeat blood cultures were done. Pulm on board appreciate recommendations, Monitor fingersticks, diabetic diet, place on insulin sliding scale Continue Flomax, gabapentin Patient does not wish any further aggressive management of his rectal cancer. DVT prophylaxis with Coumadin Patient is DNR/DNI Problem List: 1. Acute respiratory failure with hypoxia 2. CHF (congestive heart failure) 3. Diabetes Pain Ratin Pain Location: Not applicable Pain Goal: Pain 4 or less Pain Plan: Current regimen Tomorrow's Labs & Rationales: PT/magnesium/CBC/BEP Consulting Request: Consulting Specialty: Cardiology MANDI WELCH MD 11/21/16 1503: Attending MD Review Statement Attending Statement Attending MD Statement: examined this patient, discuss w/resident/PA/SALES DEMONSTRATOR, agreed w/resident/PA/SALES DEMONSTRATOR, reviewed EMR data (avail), discussed with nursing, discussed with case mgmt, reviewed images Attending Assessment/Plan: A complex 86-year-old male with multiple medical problems including aortic stenosis, diastolic heart failure and valvular heart disease related heart failure, atrial fibrillation on Coumadin, newly diagnosed rectal CA ( that he doesn't want any kind of treatment for and if deteriorates wants to be comfort measures in that case). He is here right now with acute heart failure and we have him on IV Lasix for the same. Of note he is growing GPC in pairs chains and clusters in one set of blood cultures. The repeat CBC still shows a white count of 12,000 and repeat blood cultures were done after which IV Vanco has been started. Will need to follow that closely. This all started after his colonoscopy so we'll need to reevaluate that. We'll need to dose Coumadin to keep his INR therapeutic for atrial fibrillation follow his lites and follow his white count. Appreciate pulmonary about. He also has COPD and sleep hypoventilation with a history of hypercapnia secondary to that and will follow
[2016-11-21 08:32] LABS: PT 17.1 SEC (9.4-12.5)
--- NOTE | 2016-11-21 10:22 | Cons- Pulmonary ---
General Information and HPI Consulting Request Date of Consult: 11/21/16 Requested By: ed/pt History of Present Illness: 86-year-old man with past medical history significant for congestive heart failure status post pacemaker, sick sinus syndrome, aortic stenosis, cardiomyopathy, atrial fibrillation and probable COPD seen for evaluation of slowly progressive worsening shortness of breath. Patient was recently admitted to [facility] from 06/10/16-06/18/16 for acute hypoxic respiratory failure secondary to community-acquired pneumonia and potential underlying pulmonary disease. Patient reports having recently undergone a colonoscopy on 11/17/16 and completing a bowel prep regimen where he was reportedly diagnosed with rectal cancer. He reports progressively worsening shortness of breath since this time with associated fatigue and palpitations. He reports medication compliance and denies consumption of any overly salty meals however does admit to persistent loose bowel movements secondary to the bowel prep with scant amounts of blood present. Otherwise he denies any blurred/double vision, lightheadedness/dizziness, headache, fever, chills, chest pain, cough, nausea, vomiting, numbness/tingling, urinary frequency/urgency/burning/pain, constipation. 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, uses 3.0 L oxygen as needed during the day and CPAP with oxygen at night, he reports medication compliance as his takes care of his medications However he has not been compliant with CPAP and is using oxygen regularly Allergies/Medications Allergies: Coded Allergies: NO KNOWN ALLERGIES (12/27/13) Home Med List: Albuterol Sulfate (Ventolin Hfa) 18 GM HFA.AER.AD 2 PUF INH TIDPRN PRN SHORTNESS OF BREATH Furosemide 20 MG TABLET 20 MG PO 7:30 AM, & 4:30 PM CHF Gabapentin 100 MG CAPSULE 200 MG PO TID pain Lisinopril 10 MG TABLET 1 TAB PO DAILY HEART (Reported) Metformin HCl 1,000 MG TABLET 1 TAB PO BID DIABETES (Reported) Metoprolol Tartrate 25 MG TABLET 12.5 TAB PO DAILY heart Simvastatin (Simvastatin*) 40 MG TABLET 1 TAB PO QPM CHOLESTEROL (Reported) Tamsulosin HCl (Flomax) 0.4 MG CAP.ER.24H 1 CAP PO DAILY BPH (Reported) Tiotropium [place] (Spiriva) 18 MCG CAP.W.DEV 1 PUF INH 1000 copd Warfarin Sodium 5 MG TABLET 1 TAB PO 1700 BLOOD THINNER (Reported) Review of Systems Review of Systems Constitutional: Reports: see HPI. Past History Travel History Traveled to [place] past 21 day No Medical History Neurological: NEUROPATHY EENT: NONE Cardiovascular: aortic stenosis, cardiomyopathy, CHF, hypertension, hyperlipidemia, PACEMAKER Respiratory: obstructive sleep apnea Gastrointestinal: NONE Hepatic: NONE Renal: NONE Musculoskeletal: ARTHRITIS Psychiatric: NONE Endocrine: diabetes Blood Disorders: NONE Cancer(s): NONE ADMINISTRATIVE ASST/Reproductive: NONE Surgical History Surgical History: non-contributory Psychosocial History Where Do You Live? Home Smoking Status: Former Smoker ETOH Use: denies use Exam & Diagnostic Data Last 24 Hrs of Vital Signs/I&O Vital Signs Date Time Temp Pulse Resp B/P Pulse O2 O2 Flow FiO2 Ox Delivery Rate 11/21 0730 98.5 62 20 118/62 92 Nasal 5.0L Cannula 11/21 0031 60 95 11/21 0020 98.3 60 24 126/56 92 CPAP 11/21 0000 CPAP 11/20 2231 62 96 11/20 2151 60 114/40 11/20 1905 88 Nasal 4.0L Cannula 11/20 1600 93 Nasal 5.0L Cannula 11/20 1545 98.4 62 20 108/46 93 Nasal 5.0L Cannula Intake & Output 11/21 1600 11/21 0800 11/21 0000 Intake Total 350 680 Output Total 300 300 Balance 50 380 Intake, IV 0 Intake, Oral 350 680 Number 0 0 Bowel Movements Output, Urine 300 300 Patient 227 lb Weight Last 48 Hrs of Labs/Hunter: Laboratory Tests 11/21/16 0620: Anion Gap 8, Estimated GFR 58 L, BUN/Creatinine Ratio 21.7, Magnesium 1.8, Total Bilirubin 1.2, Direct Bilirubin 0.6 H, AST 26, ALT 37, Alkaline Phosphatase 123, Total Protein 6.3, Albumin 2.7 L, PT 17.1 H, INR 1.64 H 11/20/16 1320: Magnesium 1.7, Troponin I 0.02 11/20/16 0655: Troponin I 0.03, PT 17.4 H, INR 1.67 H 11/20/16 0300: pH 7.42, pCO2 39, pO2 99, HCO3 25, ABG O2 Sat (Measured) 97.0, P-50 (Temp Corrected) N, Carboxyhemoglobin 0.3 L, O2 Concentration % .50, Respiration Rate 24, O2 Delivery Method BIPAP, Vent Mode ST, Expiratory Pressure 6, Inspiratory Pressure 20, Phlebotomy Draw Site RIGHT RADIAL 11/20/16 0156: Anion Gap 10, Estimated GFR > 60, BUN/Creatinine Ratio 16.3, Glucose 159 H, Calcium 8.6, Total Bilirubin 1.7 H, Direct Bilirubin 0.9 H, AST 52, ALT 46, Alkaline Phosphatase 175 H, Troponin I 0.02, Ado-S-Fueamwznmww Pept 1070 H, Total Protein 7.1, Albumin 3.3 L, Amylase 41, Lipase 154, PT 17.6 H, INR 1.68 H, APTT 31, CBC w Diff NO MAN DIFF REQ, RBC 3.91 L, MCV 88.2, MCH 28.8, RDW 15.3 H, MPV 7.4, Gran % 75.8 H, Lymphocytes % 11.5 L, Monocytes % 11.9 H, Eosinophils % 0, Basophils % 0.8, Absolute Granulocytes 9.4 H, Absolute Lymphocytes 1.4, Absolute Monocytes 1.5 H, Absolute Eosinophils 0, Absolute Basophils 0.1, PUBS MCHC 32.7 L Assessment/Plan Impression/Plan: eneral: awake and alert, sitting up in bed eating breakfast in no acute distress Neck: supple, no JVD noted Cardiac: S1 and S2 heard, irregularly irregular Lungs: no respiratory distress or accessory muscle use, CTA bilaterally, no W/R/ R MSK: no LE edema, pedal pulses 2+ bilaterally Psych: appropriate and cooperative with exam IMPRESSION This is an elderly gentleman with history of significant smoking with atrial fibrillation/flutter on warfarin, morbid obesity with signs and symptoms suggestive of sleep apnea, pacemaker with pacemaker induced cardiomyopathy, diabetes, significant arthritis, came in with hypoxia chest tightness and dyspnea with aortic stenosis most likely related to fluid overload. His issues include * Dyspnea which is improving most likely related to bilateral pleural effusion and pulmonary edema from diastolic and valvular heart * Recently diagnosed large rectal cancer patient is refusing any kind of therapy wishes to be made comfort if he gets worse in the future * He has hypercarbia related to sleep associated hypoventilation with COPD. Supposed to be on BiPAP at home but he does not wish to use this regularly but he has been using oxygen. His hypersomnia and sleep associated hypoventilation did improve with BiPAP however. * Atrial fibrillation flutter on warfarin with hyperlipidemia and diabetes which seems to be moderately well-controlled endocrine is on board * No clinical evidence suggestive of significant pneumonia * Pulmonary hypertension most likely related to diastolic heart disease aortic stenosis and probable sleep apnea * Chronic lung disease with evidence suggestive of mild COPD with chronic bronchitis * Significant degenerative joint disease RECOMMENDATION Continue oxygen Can increase beta sage if needed, as he is not actively wheezing As he has occasional cough can change lisinopril to losartan Attempt to use BiPAP at night if patient is willing to do that As needed nebulizer therapy Discussed with patient extensively about his decision to not pursue any therapy for his rectal cancer and he says he is already discussed with his family and he wishes no further therapy for rectal cancer. If he gets worse he wished to be made comfort RX neuropathic pain Continue his gabapentin We will follow Consult Acknowledgment - Thank you for your consult request.
--- NOTE | 2016-11-21 12:35 | PN- Cardiology ---
Subjective Subjective: Breathing improved following diuresis. Denies chest discomfort or palpitations. Paced rhythm on telemetry. Objective Vital Signs and I&Os Vital Signs Date Time Temp Pulse Resp B/P Pulse O2 O2 Flow FiO2 Ox Delivery Rate 11/21 1141 92 Nasal 5.0L Cannula 11/21 1034 62 120/62 11/21 1033 62 20 120/62 11/21 1032 62 120/62 11/21 0730 98.5 62 20 118/62 92 Nasal 5.0L Cannula 11/21 0031 60 95 11/21 0020 98.3 60 24 126/56 92 CPAP 11/21 0000 CPAP 11/20 2231 62 96 11/20 2151 60 114/40 11/20 1905 88 Nasal 4.0L Cannula 11/20 1600 93 Nasal 5.0L Cannula 11/20 1545 98.4 62 20 108/46 93 Nasal 5.0L Cannula Intake & Output 11/21 1600 11/21 0800 11/21 0000 11/20 1600 11/20 0800 11/20 0000 Intake Total 350 680 560 Output Total 300 300 125 500 Balance 50 380 435 -500 Intake, IV 0 Intake, Oral 350 680 560 Number 0 0 Bowel Movements Output, Urine 300 300 125 500 Patient 227 lb 240 lb Weight Physical Exam: Well-developed, obese elderly male in no acute distress with nasal oxygen in place. Vital signs: See above. Lungs: Decreased breath sounds bilaterally. Heart: S1, S2 (regular/paced) with grade 1-2/6 systolic murmur. Abdomen: Soft, positive bowel sounds, nontender. Extremities: No edema. Current Medications: Current Medications Sig/Elier Start time Last Medication Dose Route Stop Time Status Admin Acetaminophen 650 MG Q6 PRN 11/20 0545 AC PO Albuterol Sulfate 3 ML BID 11/20 1000 AC 11/21 INH 1127 Atorvastatin Calcium 20 MG 1700 11/20 1700 AC 11/20 PO 1617 Furosemide 40 MG DAILY 11/20 1000 AC 11/21 IV 1033 Gabapentin 200 MG TID 11/20 1000 AC 11/21 PO 1033 Insulin Aspart 0 TIDAC 11/20 0800 AC 11/21 SC 0745 Lisinopril 10 MG DAILY 11/20 1000 AC 11/21 PO 1032 Magnesium Oxide 400 MG ONE ONE 11/21 0845 DC 11/21 PO 11/21 0846 1056 Magnesium Oxide 400 MG ONE ONE 11/20 1900 DC 11/20 PO 11/20 1901 2151 Magnesium Oxide 400 MG ONE ONE 11/20 1645 DC 11/20 PO 11/20 1646 2151 Metoprolol Tartrate 6.25 MG BID 11/20 1000 AC 11/21 PO 1034 Oxycodone/ 1 TAB Q6P PRN 11/20 0930 AC 11/20 Acetaminophen PO 1010 Tamsulosin HCl 0.4 MG DAILY 11/20 1000 AC 11/21 PO 1033 Tiotropium [place] 1 PUF 1000 11/20 1000 AC 11/21 INH 1033 Vancomycin HCl 1,500 MG ONCE ONE 11/21 1113 AC Dextrose/Water 250 ML IV 11/21 1212 Vancomycin HCl 1,000 MG DAILY 11/21 1036 DC Dextrose/Water 250 ML IV Warfarin Sodium 7.5 MG COUMADIN 1700 ONE 11/21 1700 AC PO 11/21 1701 Warfarin Sodium 7.5 MG COUMADIN 1700 ONE 11/20 1700 DC 11/20 PO 11/20 1701 1617 Results Last 48 Hrs of Labs/Mics: Laboratory Tests 11/21/16 1148: CBC w Diff Pending, WBC Pending, RBC Pending, Hgb Pending, Hct Pending, MCV Pending, MCH Pending, RDW Pending, Plt Count Pending, MPV Pending, PUBS MCHC Pending 11/21/16 0620: Anion Gap 8, Estimated GFR 58 L, BUN/Creatinine Ratio 21.7, Magnesium 1.8, Total Bilirubin 1.2, Direct Bilirubin 0.6 H, AST 26, ALT 37, Alkaline Phosphatase 123, Total Protein 6.3, Albumin 2.7 L, PT 17.1 H, INR 1.64 H 11/20/16 1320: Magnesium 1.7, Troponin I 0.02 11/20/16 0655: Troponin I 0.03, PT 17.4 H, INR 1.67 H 11/20/16 0300: pH 7.42, pCO2 39, pO2 99, HCO3 25, ABG O2 Sat (Measured) 97.0, P-50 (Temp Corrected) N, Carboxyhemoglobin 0.3 L, O2 Concentration % .50, Respiration Rate 24, O2 Delivery Method BIPAP, Vent Mode ST, Expiratory Pressure 6, Inspiratory Pressure 20, Phlebotomy Draw Site RIGHT RADIAL 11/20/16 0156: Anion Gap 10, Estimated GFR > 60, BUN/Creatinine Ratio 16.3, Glucose 159 H, Calcium 8.6, Total Bilirubin 1.7 H, Direct Bilirubin 0.9 H, AST 52, ALT 46, Alkaline Phosphatase 175 H, Troponin I 0.02, Ctc-V-Mmdbtytxexn Pept 1070 H, Total Protein 7.1, Albumin 3.3 L, Amylase 41, Lipase 154, PT 17.6 H, INR 1.68 H, APTT 31, CBC w Diff NO MAN DIFF REQ, RBC 3.91 L, MCV 88.2, MCH 28.8, RDW 15.3 H, MPV 7.4, Gran % 75.8 H, Lymphocytes % 11.5 L, Monocytes % 11.9 H, Eosinophils % 0, Basophils % 0.8, Absolute Granulocytes 9.4 H, Absolute Lymphocytes 1.4, Absolute Monocytes 1.5 H, Absolute Eosinophils 0, Absolute Basophils 0.1, PUBS MCHC 32.7 L Recent Imaging Studies: CXR (11/20/2016): * Findings most suggestive of pulmonary edema. Small pleural effusions. Assessment/Plan Assessment/Plan Mr. Casanova is an 86-year-old male with a long-standing history of tobacco use, presumed COPD, obesity, suspected obstructive sleep apnea, hypertension, dyslipidemia, diabetes mellitus, left ventricular hypertrophy, cardiomyopathy, aortic stenosis, atrial fibrillation on warfarin anticoagulation s/p atrioventricular node ablation with initial permanent pacemaker implantation (05/10/9095) with generator replacements (10/18/2001; 03/29/2006; 04/07/2015), and previous heart failure with preserved EF who presented with complaints of progressive shortness of breath after undergoing an elective colonoscopy (2016) c/w an exophytic upper rectal cancer with bleeding without evidence of obstruction. His last echocardiogram was performed on 06/14/2016 and revealed: left ventricular cavity size at the upper limits of normal, moderate concentric left ventricular hypertrophy, abnormal septal motion consistent with pacemaker activation, no other obvious regional wall motion abnormalities, a normal left ventricular ejection fraction visually estimated at >55%, mild right ventricular dilatation, a catheter/pacemaker wire in the right ventricular cavity, mild to moderate right atrial dilatation,a catheter/pacemaker wire in the right atrial cavity, mild to moderate left atrial dilatation trace to mild mitral regurgitation, mild aortic stenosis, mild tricuspid regurgitation, mild pulmonary hypertension, a mildly dilated proximal ascending aorta (tube), and a dilated inferior vena cava. Note that Mr. Casanova underwent a pharmacologic (Regadenoson) stress test on 02/20/2016 that revealed no nuclear evidence of ischemia. Impression: Acute diastolic heart failure likely secondary to moderate concentric left ventricular hypertrophy as result of his long-standing hypertension. Recommendations: * Not presently clear whether inputs/outputs have been accurate. Present numbers suggest that he is in a positive fluid balance despite IV furosemide. * Need strict inputs/outputs and daily weights. * Repeat CXR. * Reassess the need for further IV diuresis. * Repeat echocardiogram to reassess left ventricular function, degree of left ventricular hypertrophy, degree of aortic stenosis, pulmonary pressures, etc., as well as, to assess for infective endocarditis given the one positive blood culture bottle for gram-positive cocci out of two, two bottle sets. Continue telemetry? Yes
[2016-11-21 12:51] LABS: ABSOLUTE BASOPHIL COUNT 0.1 /CUMM (0.0-0.2); ABSOLUTE EOSINOPHIL COUNT 0 /CUMM (0.0-0.7); ABSOLUTE GRANULOCYTE CT 9.2 /CUMM (1.4-6.5); ABSOLUTE LYMPH COUNT 1.4 /CUMM (1.2-3.4); ABSOLUTE MONOCYTE COUNT 1.2 /CUMM (0.10-0.60); BASOPHIL % 0.9 % (0.0-2.0); EOSINOPHIL % 0 % (0-5); GRANULOCYTE % 77.1 % (42.2-75.2); HEMATOCRIT 34.6 % (42-52); MEAN CORPUSCULAR HGB 28.8 PG (27.0-31.0); MEAN CORPUSCULAR VOLUME 87.1 FL (80.0-94.0); MEAN PLATELET VOLUME 7.4 FL (7.4-10.4); PLATELET COUNT 286 /CUMM (130-400); RBC DISTRIBUTION WIDTH 15.2 % (11.5-14.5); RED BLOOD CELL CT 3.98 /CUMM (4.70-6.10)
--- NOTE | 2016-11-21 14:50 | RADIOLOGY REPORT ---
EXAMINATION: XR CHEST CLINICAL INFORMATION: Short of breath COMPARISON: 11/20/2016 and 11/14/2016 TECHNIQUE: 2 views of the chest were obtained. FINDINGS: Frontal and lateral views of the chest were obtained. There has been slight interval worsening of perihilar opacities and bibasilar areas of consolidation. There are moderate-sized pleural effusions now present. 2 cardiac pacers are present a dual-lead pacer is noted over the right chest wall and single lead pacer is noted over the left chest wall. Tips are poorly visualized due to technical factors. IMPRESSION: Slight interval worsening of pulmonary edema with [id number] bilateral pleural effusions.
[2016-11-21 15:30] VITALS: BP 118/52
[2016-11-22] VITALS: BP 160/90
--- NOTE | 2016-11-22 06:08 | PN- Housestaff ---
JOHN MIXON,KAELA 11/22/16 0608: Subjective Follow-up For: Pulmonary edema/effusion Bacteremia Tele-Events Since Last Visit: Aflutter Subjective: Patient seen and examined at bedside. He is sitting comfortably in chair. Reports feeling well with no new complaints. He endorses shortness of breath without the oxygen. Denies any f/c, headache, chest pain, dyspnea, palpitations, n/v/c/d. No events reported overnight. Review of Systems Constitutional: Reports: see HPI. Objective Last 24 Hrs of Vital Signs/I&O Vital Signs Date Time Temp Pulse Resp B/P Pulse O2 O2 Flow FiO2 Ox Delivery Rate 11/22 0745 99.2 65 20 146/80 94 Nasal 5.0L Cannula 11/22 0412 64 94 11/22 0315 62 91 11/22 0015 63 91 11/22 0000 98.9 67 22 160/90 92 Nasal 6.0L Cannula 11/22 0000 92 CPAP 11/21 2236 54 92 11/21 2156 67 122/56 11/21 1855 92 Nasal 5.0L Cannula 11/21 1600 94 Nasal 6.0L Cannula 11/21 1530 98.5 65 18 118/52 92 Nasal 5.0L Cannula 11/21 1141 92 Nasal 5.0L Cannula 11/21 1034 62 120/62 11/21 1033 62 20 120/62 11/21 1032 62 120/62 Intake & Output 11/22 1600 11/22 0800 11/22 0000 Intake Total 240 120 Output Total 690 150 Balance -450 -30 Intake, Oral 240 120 Number 1 Bowel Movements Output, Urine 690 150 Patient 103.873 kg 105.233 kg Weight Physical Exam General Appearance: Alert, Oriented X3, Cooperative, No Acute Distress Other Physical Findings: Cardiovascular: Normal S1, Normal S2 Lungs: Clear to Auscultation, Normal Air Movement Abdomen: No Masses, distended Extremities: No Edema Current Medications: Current Medications Sig/Elier Start time Last Medication Dose Route Stop Time Status Admin Acetaminophen 650 MG Q6 PRN 11/20 0545 AC PO Albuterol Sulfate 3 ML BID 11/20 1000 AC 11/21 INH 1855 Atorvastatin Calcium 20 MG 1700 11/20 1700 AC 11/21 PO 1712 Furosemide 40 MG BID 11/21 2200 AC 11/22 IV 0800 Furosemide 40 MG DAILY 11/20 1000 DC 11/21 IV 1033 Gabapentin 200 MG TID 11/20 1000 AC 11/21 PO 2156 Insulin Aspart 0 TIDAC 11/20 0800 AC 11/21 SC 0745 Lisinopril 10 MG DAILY 11/20 1000 AC 11/21 PO 1032 Metoprolol Tartrate 6.25 MG BID 11/20 1000 AC 11/21 PO 2156 Oxycodone/ 1 TAB Q6P PRN 11/20 0930 AC 11/20 Acetaminophen PO 1010 Polyethylene Glycol 17 GM DAILY 11/21 1814 AC PO Senna/Docusate Sodium 2 TAB DAILY 11/21 1815 AC PO Tamsulosin HCl 0.4 MG DAILY 11/20 1000 AC 11/21 PO 1033 Tiotropium [place] 1 PUF 1000 11/20 1000 AC 11/21 INH 1033 Vancomycin HCl 1,500 MG DAILY 11/22 1000 AC Dextrose/Water 250 ML IV Vancomycin HCl 1,500 MG ONCE ONE 11/22 0745 CAN Dextrose/Water 250 ML IV 11/22 0844 Vancomycin HCl 1,500 MG ONCE ONE 11/21 1113 DC 11/21 Dextrose/Water 250 ML IV 11/21 1212 1223 Vancomycin HCl 1,000 MG DAILY 11/21 1036 DC Dextrose/Water 250 ML IV Warfarin Sodium 7.5 MG COUMADIN 1700 ONE 11/21 1700 DC 11/21 PO 11/21 1701 1712 Last 24 Hrs of Lab/Hunter Results Last 24 Hrs of Labs/Mics: Laboratory Tests 11/22/16 0735: Anion Gap 11, Estimated GFR 58 L, BUN/Creatinine Ratio 26.7 H, Magnesium 1.9, PT 18.9 H, INR 1.81 H, CBC w Diff Pending, WBC Pending, RBC Pending, Hgb Pending, Hct Pending, MCV Pending, MCH Pending, RDW Pending, Plt Count Pending, MPV Pending, PUBS MCHC Pending 11/21/16 1148: CBC w Diff NO MAN DIFF REQ, RBC 3.98 L, MCV 87.1, MCH 28.8, RDW 15.2 H, MPV 7.4, Gran % 77.1 H, Lymphocytes % 11.6 L, Monocytes % 10.4 H, Eosinophils % 0 , Basophils % 0.9, Absolute Granulocytes 9.2 H, Absolute Lymphocytes 1.4, Absolute Monocytes 1.2 H, Absolute Eosinophils 0, Absolute Basophils 0.1, PUBS MCHC 33.0 Microbiology 11/21 1148 BLOOD: Blood Culture - RECD 11/21 1135 BLOOD: Blood Culture - RECD Assessment/Plan Assessment: 86-year-old gentlemen with pmh of COPD, hypertension, dyslipidemia, diabetes mellitus, cardiomyopathy, aortic stenosis, atrial fibrillation on warfarin s/p atrioventricular node ablation with initial permanent pacemaker implantation () with generator replacements (10/18/2001; 03/29/2006; 04/07/2015), heart failure with preserved EF, recent diagnosis of exophytic upper rectal cancer s/p elective colonoscopy (11/17/2016) after which he had worsening shortness of breath. Today his breathing has improved. 1 of 2 blood cultures prelim report shows # Acute resp failure 2/2 acute on CHF (HFpEF) * Oxygen support as needed to maintain O2 sat > 92% * TRC neb tx as needed * Plans as discussed below for CHF management * Pulm following, appreciate recs # HFpEF Repeat CXR (11/21) shows slight interval worsening of pulmonary edema with small- to-moderate bilateral pleural effusions. * Continue strict I's and O's, daily weights * Cont IV diuresis * Appreciate cardio recs # Bacteremia Blood blood culture positive in 1/2 bottles growing gram-positive cocci in chains and clusters. Started on vanco. * Cont to monitor for signs of infection, vitals per protocl - patient is borderline feverish with a temp of 99.2F * Check CBC daily, trend WBC - remains elevated at 12.0 * Follow blood culture ID & sensitivity * Per ID rec, d/c Vanco if bcx shows coa negative which would be indicative of contamination # Atrial fibrillation * Cont tele monitoring * INR daily and dose warfarin accordingly- 1.81 today, Coumadin 7.5mg given * Appreciate cardio recs # BPH * Continue home med Flomax # Diabetes * Monitor fingersticks, diabetic diet, place on insulin sliding scale # Colorectal cancer Patient does not wish any further aggressive management of his rectal cancer. * Outpaitent GI followup # Chronic medical conditions * Continue home meds of Lopressor, lisinopril, statin for HTN/HLD * Coont home med gabapentin for neuropathy # Heart healthy diet # Mild pain pathway # DVT prophylaxis with Coumadin # DNR/DNI Problem List: 1. Osteoarthritis of right knee 2. Pneumonia 3. Chest pain 4. Aortic stenosis 5. Traumatic arthritis of right knee 6. CHF (congestive heart failure) 7. Acute respiratory failure with hypoxia 8. Diabetes 9. Tobacco abuse Pain Ratin Pain Location: None Pain Goal: Remain pain free Pain Plan: Mild pain pathway Tomorrow's Labs & Rationales: CBC BEP INR Consulting Request: Consulting Specialty: Cardiology MANDI WELCH MD 11/22/16 1314: Attending MD Review Statement Attending Statement Attending MD Statement: examined this patient, discuss w/resident/PA/MANAGER ETL, agreed w/resident/PA/MANAGER ETL, reviewed EMR data (avail), discussed with nursing, discussed with case mgmt, reviewed images Attending Assessment/Plan: Patient is doing okay. He says his shortness of breath is better. He remains adamant that he wants no treatment offered for the rectal cancer and in fact wants to be discharged with visiting nurse that can transition to home hospice as necessary. He is an 86-year-old with moderate aortic stenosis who we are treating for acute heart failure with IV Lasix. We have him on Lasix 40 IV twice a day and will closely follow his renal function an O2 requirement. We'll also repeat the chest x-ray as suggested by cardiology. He has A. fib on Coumadin and will dose his coumadin for his INR to be therapeutic. We had worried about sepsis given the positive blood cultures but now that that alpha strep and coag-negative staph this is likely all a contaminant and will stop the antibiotic and watch him off antibiotics.
[2016-11-22 07:45] VITALS: BP 146/80
[2016-11-22 08:26] LABS: PT 18.9 SEC (9.4-12.5)
[2016-11-22 08:32] LABS: ABSOLUTE BASOPHIL COUNT 0.1 /CUMM (0.0-0.2); ABSOLUTE EOSINOPHIL COUNT 0.4 /CUMM (0.0-0.7); ABSOLUTE GRANULOCYTE CT 9.2 /CUMM (1.4-6.5); ABSOLUTE LYMPH COUNT 1.1 /CUMM (1.2-3.4); ABSOLUTE MONOCYTE COUNT 1.3 /CUMM (0.10-0.60); BASOPHIL % 0.7 % (0.0-2.0); EOSINOPHIL % 2.9 % (0-5); GRANULOCYTE % 76.5 % (42.2-75.2); HEMATOCRIT 34.3 % (42-52); MEAN CORPUSCULAR HGB 28.5 PG (27.0-31.0); MEAN CORPUSCULAR HGB CONC 32.3 G/DL (33.0-37.0); MEAN CORPUSCULAR VOLUME 88.1 FL (80.0-94.0); MEAN PLATELET VOLUME 7.3 FL (7.4-10.4); PLATELET COUNT 312 /CUMM (130-400); RBC DISTRIBUTION WIDTH 15.2 % (11.5-14.5); RED BLOOD CELL CT 3.89 /CUMM (4.70-6.10)
--- NOTE | 2016-11-22 09:37 | PN- Pulmonary ---
Subjective HPI/Critical Care Issues: DOing well afebrile still has dyspnea Blood culture positive one out of two bottles Objective Current Medications: Current Medications Sig/Elier Start time Last Medication Dose Route Stop Time Status Admin Acetaminophen 650 MG Q6 PRN 11/20 0545 AC PO Albuterol Sulfate 3 ML BID 11/20 1000 AC 11/21 INH 1855 Atorvastatin Calcium 20 MG 1700 11/20 1700 AC 11/21 PO 1712 Furosemide 40 MG BID 11/21 2200 AC 11/22 IV 0800 Furosemide 40 MG DAILY 11/20 1000 DC 11/21 IV 1033 Gabapentin 200 MG TID 11/20 1000 AC 11/21 PO 2156 Insulin Aspart 0 TIDAC 11/20 0800 AC 11/21 SC 0745 Lisinopril 10 MG DAILY 11/20 1000 AC 11/21 PO 1032 Magnesium Chloride 64 MG ONCE ONE 11/22 0900 DC PO 11/22 0901 Metoprolol Tartrate 6.25 MG BID 11/20 1000 AC 11/21 PO 2156 Oxycodone/ 1 TAB Q6P PRN 11/20 0930 AC 11/20 Acetaminophen PO 1010 Polyethylene Glycol 17 GM DAILY 11/21 1814 AC PO Senna/Docusate Sodium 2 TAB DAILY 11/21 1815 AC PO Tamsulosin HCl 0.4 MG DAILY 11/20 1000 AC 11/21 PO 1033 Tiotropium [place] 1 PUF 1000 11/20 1000 AC 11/21 INH 1033 Vancomycin HCl 1,500 MG DAILY 11/22 1000 CAN Dextrose/Water 250 ML IV Vancomycin HCl 1,500 MG ONCE ONE 11/22 0745 CAN Dextrose/Water 250 ML IV 11/22 0844 Vancomycin HCl 1,500 MG ONCE ONE 11/21 1113 DC 11/21 Dextrose/Water 250 ML IV 11/21 1212 1223 Vancomycin HCl 1,000 MG DAILY 11/21 1036 DC Dextrose/Water 250 ML IV Warfarin Sodium 7.5 MG COUMADIN 1700 ONE 11/22 1700 AC PO 11/22 1701 Warfarin Sodium 7.5 MG COUMADIN 1700 ONE 11/21 1700 DC 11/21 PO 11/21 1701 1712 Vital Signs & I&O Last 24 Hrs of Vitals and I&O: Vital Signs Date Time Temp Pulse Resp B/P Pulse O2 O2 Flow FiO2 Ox Delivery Rate 11/22 0745 99.2 65 20 146/80 94 Nasal 5.0L Cannula 11/22 0412 64 94 11/22 0315 62 91 11/22 0015 63 91 11/22 0000 98.9 67 22 160/90 92 Nasal 6.0L Cannula 11/22 0000 92 CPAP 11/21 2236 54 92 11/21 2156 67 122/56 11/21 1855 92 Nasal 5.0L Cannula 11/21 1600 94 Nasal 6.0L Cannula 11/21 1530 98.5 65 18 118/52 92 Nasal 5.0L Cannula 11/21 1141 92 Nasal 5.0L Cannula 11/21 1034 62 120/62 11/21 1033 62 20 120/62 11/21 1032 62 120/62 Intake & Output 11/22 1600 11/22 0800 11/22 0000 Intake Total 240 120 Output Total 690 150 Balance -450 -30 Intake, Oral 240 120 Number 1 Bowel Movements Output, Urine 690 150 Patient 229 lb 232 lb Weight Impression/Plan Impression/Plan Impression/Plan: eneral: awake and alert, sitting up in bed eating breakfast in no acute distress Neck: supple, no JVD noted Cardiac: S1 and S2 heard, irregularly irregular Lungs: no respiratory distress or accessory muscle use, CTA bilaterally, no W/R/ R MSK: no LE edema, pedal pulses 2+ bilaterally Psych: appropriate and cooperative with exam IMPRESSION This is an elderly gentleman with history of significant smoking with atrial fibrillation/flutter on warfarin, morbid obesity with signs and symptoms suggestive of sleep apnea, pacemaker with pacemaker induced cardiomyopathy, diabetes, significant arthritis, came in with hypoxia chest tightness and dyspnea with aortic stenosis most likely related to fluid overload. His issues include * Dyspnea which is improving most likely related to bilateral pleural effusion and pulmonary edema from diastolic and valvular heart * Recently diagnosed large rectal cancer patient is refusing any kind of therapy wishes to be made comfort if he gets worse in the future. Has low grade temp on admission now little better and has one out of two bottles positive for multiple organisms * He has hypercarbia related to sleep associated hypoventilation with COPD. Supposed to be on BiPAP at home but he does not wish to use this regularly but he has been using oxygen. His hypersomnia and sleep associated hypoventilation did improve with BiPAP however. * Atrial fibrillation flutter on warfarin with hyperlipidemia and diabetes which seems to be moderately well-controlled endocrine is on board * No clinical evidence suggestive of significant pneumonia * Pulmonary hypertension most likely related to diastolic heart disease aortic stenosis and probable sleep apnea * Chronic lung disease with evidence suggestive of mild COPD with chronic bronchitis * Significant degenerative joint disease RECOMMENDATION Continue oxygen Can increase beta sage if needed, as he is not actively wheezing As he has occasional cough can change lisinopril to losartan Attempt to use BiPAP at night if patient is willing to do that As needed nebulizer therapy Discussed with patient extensively about his decision to not pursue any therapy for his rectal cancer and he says he is already discussed with his family and he wishes no further therapy for rectal cancer. If he gets worse he wished to be made comfort RX neuropathic pain Continue his gabapentin Follow cultures We will follow
--- NOTE | 2016-11-22 11:13 | PN- Cardiology ---
Subjective Subjective: Not feeling well this morning with complaints of right upper quadrant/right flank discomfort. States his breathing is a little better. Modest diuresis by inputs/outputs. On telemetry remains with regular paced rhythm at 60 bpm and underlying atrial fibrillation. Objective Vital Signs and I&Os Vital Signs Date Time Temp Pulse Resp B/P Pulse O2 O2 Flow FiO2 Ox Delivery Rate 11/22 1046 92 Nasal 5.0L Cannula 11/22 0945 73 146/80 11/22 0945 73 146/80 11/22 0945 73 146/80 11/22 0800 94 Nasal 6.0L Cannula 11/22 0745 99.2 65 20 146/80 94 Nasal 5.0L Cannula 11/22 0412 64 94 11/22 0315 62 91 11/22 0015 63 91 11/22 0000 98.9 67 22 160/90 92 Nasal 6.0L Cannula 11/22 0000 92 CPAP 11/21 2236 54 92 11/21 2156 67 122/56 11/21 1855 92 Nasal 5.0L Cannula 11/21 1600 94 Nasal 6.0L Cannula 11/21 1530 98.5 65 18 118/52 92 Nasal 5.0L Cannula 11/21 1141 92 Nasal 5.0L Cannula Intake & Output 11/22 1600 11/22 0800 11/22 0000 11/21 1600 11/21 0800 11/21 0000 Intake Total 240 120 350 680 Output Total 690 150 700 300 300 Balance -450 -30 -700 50 380 Intake, IV 0 Intake, Oral 240 120 350 680 Number 1 0 0 Bowel Movements Output, Urine 690 150 700 300 300 Patient 229 lb 232 lb 227 lb Weight Physical Exam: Well-developed, obese elderly male in no acute distress with nasal oxygen in place. Vital signs: See above. Lungs: Decreased breath sounds bilaterally. Heart: S1, S2 (regular/paced) with grade 1-2/6 systolic murmur. Abdomen: Soft, positive bowel sounds, mild right upper quadrant tenderness to palpation. Extremities: No edema. Current Medications: Current Medications Sig/Elier Start time Last Medication Dose Route Stop Time Status Admin Acetaminophen 650 MG Q6 PRN 11/20 0545 AC PO Albuterol Sulfate 3 ML BID 11/20 1000 AC 11/22 INH 1032 Atorvastatin Calcium 20 MG 1700 11/20 1700 AC 11/21 PO 1712 Furosemide 40 MG BID 11/21 2200 AC 11/22 IV 0800 Furosemide 40 MG DAILY 11/20 1000 DC 11/21 IV 1033 Gabapentin 200 MG TID 11/20 1000 AC 11/22 PO 0945 Insulin Aspart 0 TIDAC 11/20 0800 AC 11/21 SC 0745 Lisinopril 10 MG DAILY 11/20 1000 AC 11/22 PO 0945 Magnesium Chloride 64 MG ONCE ONE 11/22 0900 DC PO 11/22 0901 Metoprolol Tartrate 6.25 MG BID 11/20 1000 AC 11/22 PO 0945 Oxycodone/ 1 TAB Q6P PRN 11/20 0930 AC 11/20 Acetaminophen PO 1010 Polyethylene Glycol 17 GM DAILY 11/21 1814 AC PO Senna/Docusate Sodium 2 TAB DAILY 11/21 1815 AC 11/22 PO 0945 Tamsulosin HCl 0.4 MG DAILY 11/20 1000 AC 11/22 PO 0945 Tiotropium [place] 1 PUF 1000 11/20 1000 AC 11/22 INH 0945 Vancomycin HCl 1,500 MG DAILY 11/22 1000 CAN Dextrose/Water 250 ML IV Vancomycin HCl 1,500 MG ONCE ONE 11/22 0745 CAN Dextrose/Water 250 ML IV 11/22 0844 Vancomycin HCl 1,500 MG ONCE ONE 11/21 1113 DC 11/21 Dextrose/Water 250 ML IV 11/21 1212 1223 Vancomycin HCl 1,000 MG DAILY 11/21 1036 DC Dextrose/Water 250 ML IV Warfarin Sodium 7.5 MG COUMADIN 1700 ONE 11/22 1700 AC PO 11/22 1701 Warfarin Sodium 7.5 MG COUMADIN 1700 ONE 11/21 1700 DC 11/21 PO 11/21 1701 1712 Results Last 48 Hrs of Labs/Mics: Laboratory Tests 11/22/16 0735: Anion Gap 11, Estimated GFR 58 L, BUN/Creatinine Ratio 26.7 H, Magnesium 1.9, PT 18.9 H, INR 1.81 H, CBC w Diff NO MAN DIFF REQ, RBC 3.89 L, MCV 88.1, MCH 28.5, RDW 15.2 H, MPV 7.3 L, Gran % 76.5 H, Lymphocytes % 9.1 L, Monocytes % 10.8 H, Eosinophils % 2.9, Basophils % 0.7, Absolute Granulocytes 9.2 H, Absolute Lymphocytes 1.1 L, Absolute Monocytes 1.3 H, Absolute Eosinophils 0.4 , Absolute Basophils 0.1, PUBS MCHC 32.3 L 11/21/16 1148: CBC w Diff NO MAN DIFF REQ, RBC 3.98 L, MCV 87.1, MCH 28.8, RDW 15.2 H, MPV 7.4, Gran % 77.1 H, Lymphocytes % 11.6 L, Monocytes % 10.4 H, Eosinophils % 0 , Basophils % 0.9, Absolute Granulocytes 9.2 H, Absolute Lymphocytes 1.4, Absolute Monocytes 1.2 H, Absolute Eosinophils 0, Absolute Basophils 0.1, PUBS MCHC 33.0 11/21/16 0620: Anion Gap 8, Estimated GFR 58 L, BUN/Creatinine Ratio 21.7, Magnesium 1.8, Total Bilirubin 1.2, Direct Bilirubin 0.6 H, AST 26, ALT 37, Alkaline Phosphatase 123, Total Protein 6.3, Albumin 2.7 L, PT 17.1 H, INR 1.64 H 11/20/16 1320: Magnesium 1.7, Troponin I 0.02 Recent Imaging Studies: CXR (11/21/2016) Slight interval worsening of pulmonary edema with small-to- moderate bilateral pleural effusions. Assessment/Plan Assessment/Plan Mr. Casanova is an 86-year-old male with a long-standing history of tobacco use, presumed COPD, obesity, suspected obstructive sleep apnea, hypertension, dyslipidemia, diabetes mellitus, left ventricular hypertrophy, cardiomyopathy, aortic stenosis, atrial fibrillation on warfarin anticoagulation s/p atrioventricular node ablation with initial permanent pacemaker implantation (05/10/9095) with generator replacements (10/18/2001; 03/29/2006; 04/07/2015), and previous heart failure with preserved EF who presented with complaints of progressive shortness of breath after undergoing an elective colonoscopy (2016) c/w an exophytic upper rectal cancer with bleeding without evidence of obstruction. His last echocardiogram was performed on 06/14/2016 and revealed: left ventricular cavity size at the upper limits of normal, moderate concentric left ventricular hypertrophy, abnormal septal motion consistent with pacemaker activation, no other obvious regional wall motion abnormalities, a normal left ventricular ejection fraction visually estimated at >55%, mild right ventricular dilatation, a catheter/pacemaker wire in the right ventricular cavity, mild to moderate right atrial dilatation,a catheter/pacemaker wire in the right atrial cavity, mild to moderate left atrial dilatation trace to mild mitral regurgitation, mild aortic stenosis, mild tricuspid regurgitation, mild pulmonary hypertension, a mildly dilated proximal ascending aorta (tube), and a dilated inferior vena cava. Note that Mr. Casanova underwent a pharmacologic (Regadenoson) stress test on 02/20/2016 that revealed no nuclear evidence of ischemia. Impression: Acute diastolic heart failure likely secondary to moderate concentric left ventricular hypertrophy as result of his long-standing hypertension. Recommendations: * Continue strict inputs/outputs and daily weights. * Repeat CXR in a.m. following diuresis and reassess the need for further IV diuresis at that time. * Repeat echocardiogram to reassess left ventricular function, degree of left ventricular hypertrophy, degree of aortic stenosis, pulmonary pressures, etc., as well as, to assess for infective endocarditis given the one positive blood culture bottle for gram-positive cocci out of two, two bottle sets. * DVT prophylaxis. Note INR mildly subtherapeutic. Continue telemetry? Yes
--- NOTE | 2016-11-22 13:16 | ECHOCARDIOGRAM REPORT ---
NANDO HINSON Age: 86 : 1930 Gender: M Exam Date: 11/21/2016 15:20 Exam Location: [address] Ht (in): 68 Wt (lb): 227 BSA: 2.26 BP: 120 / 62 Ordering Physician: MAURO HIRSCH MD Referring Physician: Ralph Carrillo MD Technologist: Shayla Lopez [facility] Room Number: 175 Indications: SHORTNESS OF BREATH Rhythm: Pacemaker; underlying atrial fibrillation Technical Quality: Poor, Technically difficult study FINDINGS Left Ventricle Normal size left ventricle. Moderate concentric left ventricular hypertrophy. No obvious regional wall motion abnormalities. Normal left ventricular ejection fraction visually estimated at >65%. Right Ventricle Mild right ventricular dilatation. Catheter/pacemaker wire in the right ventricular cavity. Right Atrium Mild to moderate right atrial dilatation. Catheter/pacemaker wire in the right atrial cavity. Left Atrium Moderate left atrial dilatation. Mitral Valve Moderate mitral annular calcification. Mitral valve mildly thickened. Trace mitral regurgitation. Aortic Valve Tricuspid aortic valve. Diffuse to moderate thickening of the aortic valve cusps with mildly to moderately reduced excursion. Mild to moderate aortic stenosis. No aortic regurgitation. Tricuspid Valve Structurally normal tricuspid valve. Mild tricuspid regurgitation. Right ventricular systolic pressure estimated to be elevated at 54 mmHg. Moderate pulmonary hypertension. Pulmonic Valve Pulmonic valve not well visualized, grossly normal. No pulmonic regurgitation. Pericardium No pericardial effusion. Great Vessels Mild aortic dilatation at the level of the sinuses of valsalva (root). Mildly to moderately dilated proximal ascending aorta (tube). CONCLUSIONS Normal size left ventricle. Moderate concentric left ventricular hypertrophy. No obvious regional wall motion abnormalities. Normal left ventricular ejection fraction visually estimated at > 65%. Mild right ventricular dilatation. Mild to moderate right atrial dilatation. Catheter/pacemaker wires in the right heart. Moderate left atrial dilatation. Trace mitral regurgitation. Mild to moderate aortic stenosis. Mild tricuspid regurgitation. Moderate pulmonary hypertension. Mild aortic dilatation at the level of the sinuses of valsalva (root). Mildly to moderately dilated proximal ascending aorta (tube). Ralph Carrillo M.D. (Electronically Signed) Final Date: 22 November 2016 13:15 MEASUREMENTS (Male / Female) Normal Values 2D ECHO LV Diastolic Diameter PLAX 4.9 cm 4.2 - 5.9 / 3.9 - 5.3 cm LV Systolic Diameter PLAX 2.5 cm 2.1 - 4.0 cm LV Fractional Shortening PLAX 49.0 % 25 - 46 % LV Ejection Fraction 2D Teich 80.2 % IVS Diastolic Thickness 1.5 cm LVPW Diastolic Thickness 1.5 cm LV Relative Wall Thickness 0.6 RV Internal Dim ED PLAX 3.5 cm 1.9 - 3.8 cm LVOT Diameter 2.3 cm Aortic Root Diameter 3.8 cm LA Systolic Diameter LX 5.3 cm 3.0 - 4.0 / 2.7 - 3.8 cm LA Volume 67.0 cm 18 - 58 / 22 - 52 cm Ascending Aorta Diameter 4.0 cm DOPPLER AV Peak Velocity 290.0 cm/s AV Peak Gradient 33.6 mmHg AV Mean Velocity 200.0 cm/s AV Mean Gradient 19.0 mmHg AV Velocity Time Integral 59.9 cm LVOT Peak Velocity 107.0 cm/s LVOT Peak Gradient 4.6 mmHg LVOT Mean Velocity 74.7 cm/s LVOT Mean Gradient 3.0 mmHg LVOT Velocity Time Integral 21.6 cm LVOT Stroke Volume 89.7 cm AV Area Cont Eq vti 1.5 cm AV Area Cont Eq pk 1.5 cm MV Peak Velocity 174.0 cm/s MV Peak Gradient 12.1 mmHg MV Mean Velocity 60.9 cm/s MV Mean Gradient 2.0 mmHg Mitral E Point Velocity 138.0 cm/s MV PHT Velocity 179.0 cm/s MV Deceleration [place] 840.0 cm/s MV Pressure Half Time 63.9 ms MV Area PHT 3.4 cm MV Deceleration Time 236.0 ms TR Peak Velocity 351.0 cm/s TR Peak Gradient 49.3 mmHg Right Atrial Pressure 5.0 mmHg Pulmonary Artery Systolic Pressu 54.3 mmHg Right Ventricular Systolic Press 54.3 mmHg PV Peak Velocity 156.0 cm/s PV Peak Gradient 9.7 mmHg PV Mean Velocity 89.1 cm/s PV Mean Gradient 4.0 mmHg PV Velocity Time Integral 27.3 cm LV E' Lateral Velocity 18.5 cm/s Mitral E to LV E' Lateral Ratio 7.5 LV E' Septal Velocity 17.4 cm/s Mitral E to LV E' Septal Ratio 7.9
--- NOTE | 2016-11-22 14:38 | RADIOLOGY REPORT ---
EXAMINATION: XR CHEST CLINICAL INFORMATION: Shortness of breath. Evaluate for pneumonia. COMPARISON: Previous chest x-rays most recent from yesterday TECHNIQUE: 2 views of the chest were obtained. FINDINGS: The cardiac silhouette is enlarged but stable. There is a right subclavian dual chamber and left subclavian single chamber pacemaker that appear unchanged. There is pulmonary venous redistribution. There is bilateral airspace disease, right greater than left. This is increased from previous exam and probably represents pulmonary edema. Differential would include pneumonia. This is slightly increased from yesterday's exam. There are small bilateral effusions similar to yesterday's exam. Visualized bony structures are unremarkable. IMPRESSION: CHF. Increasing bilateral airspace disease, right greater than left probably representing pulmonary edema. Differential would include superimposed pneumonia.
--- NOTE | 2016-11-22 14:42 | Patient Discharge Instructions ---
Discharge Instructions General Discharge Information You were seen/treated for: Heart failure exacerbation Special Instructions: 1. Please follow up with Dr. Nieves (pulmonology), Dr. Bansal (licensed certified orthotist), Dr. Rivera (primary care) and Dr. Wade (colorectal surgereon) following discharge. 2. Return to ED if you have fever, chills, worsening/persistent chest pain, shortness of breath or any other symptoms with which you presented. Diet Continue normal diet: Yes Recommended Diet: Diabetic Activity Full Activity/No Limits: Yes (as tolerated) Acute Coronary Syndrome Inclusion Criteria At DC or during hospital stay patient has or had the following: ACS DIAGNOSIS No Discharge Core Measures Meds if any: Prescribed or Continued at Discharge Meds if any: NOT Prescribed or Continued at Discharge Congestive Heart Failure Inclusion Criteria At DC or during hospital stay patient has or had the following: CHF DIAGNOSIS No Discharge Core Measures Meds if any: Prescribed or Continued at Discharge Meds if any: NOT Prescribed or Continued at Discharge Cerebrovascular accident Inclusion Criteria At DC or during hospital stay patient has or had the following: CVA/TIA Diagnosis No Discharge Core Measures Meds if any: Prescribed or Continued at Discharge Meds if any: NOT Prescribed or Continued at Discharge Venous thromboembolism Inclusion Criteria VTE Diagnosis No VTE Type NONE VTE Confirmed by (Test) NONE Discharge Core Measures - Per Current guidelines, there needs to be overlap - treatment for the first 5 days of Warfarin therapy. - If discharged on Warfarin prior to 5 days of - overlap therapy, the patient will need to be - assessed for post discharge needs including - *Post discharge parental anticoagulation - *Warfarin and/or parental anticoagulation education - *Follow up date to check INR post discharge At least 5 days overlap therapy as Inpatient No Meds if any: Prescribed or Continued at Discharge Note: Overlap Therapy is Warfarin and Anticoagulant Meds if any: NOT Prescribed or Continued at Discharge
[2016-11-22 15:54] VITALS: BP 132/70
[2016-11-22 23:49] VITALS: BP 138/70
--- NOTE | 2016-11-23 06:01 | PN- Housestaff ---
JOHN MIXON,KAELA 11/23/16 0600: Subjective Follow-up For: Pulmonary edema/effusion Acute hypoxic resp failure Tele-Events Since Last Visit: Persistent atrial flutter in 60-70s Subjective: Patient seen and examined at bedside. He is slightly lethargic and confused this morning. Disoriented to time and place. Otherwse sleeping in bed comfortably with no new complaints. Satting at 95% on 5L oxygen. Refusing CPAP at night per the nursing staff. Denies any f/c, headache, chest pain, dyspnea, palpitations, n/v/c/d. Review of Systems Constitutional: Reports: see HPI. Objective Last 24 Hrs of Vital Signs/I&O Vital Signs Date Time Temp Pulse Resp B/P Pulse O2 O2 Flow FiO2 Ox Delivery Rate 11/23 0225 60 90 11/23 0000 Nasal 5.0L Cannula 11/22 2349 98.4 64 20 138/70 94 CPAP 11/22 2239 62 92 11/22 2224 61 138/70 11/22 2008 92 Nasal 5.0L Cannula 11/22 1600 90 Nasal 5.0L Cannula 11/22 1554 98.8 66 22 132/70 90 Nasal 5.0L Cannula 11/22 1046 92 Nasal 5.0L Cannula 11/22 0945 73 146/80 11/22 0945 73 146/80 11/22 0945 73 146/80 Intake & Output 11/23 1600 11/23 0800 11/23 0000 Intake Total 150 700 Output Total 250 150 Balance -100 550 Intake, IV 0 Intake, Oral 150 700 Number 2 Bowel Movements Output, Urine 250 150 Patient 104.837 kg Weight Physical Exam General Appearance: Alert, Oriented X3, Cooperative, No Acute Distress Other Physical Findings: Cardiovascular: Normal S1, Normal S2 Lungs: Clear to Auscultation, Normal Air Movement Abdomen: No Masses, distended Extremities: No Edema Current Medications: Current Medications Sig/Elier Start time Last Medication Dose Route Stop Time Status Admin Acetaminophen 650 MG Q6 PRN 11/20 0545 AC PO Albuterol Sulfate 3 ML BID 11/20 1000 AC 11/22 INH 2007 Atorvastatin Calcium 20 MG 1700 11/20 1700 AC 11/22 PO 1644 Furosemide 40 MG BID 11/21 2200 AC 11/22 IV 2225 Gabapentin 200 MG TID 11/20 1000 AC 11/22 PO 2223 Insulin Aspart 0 TIDAC 11/20 0800 AC 11/22 SC 1306 Lisinopril 10 MG DAILY 11/20 1000 AC 11/22 PO 0945 Magnesium Chloride 64 MG ONCE ONE 11/22 0900 DC 11/22 PO 11/22 0901 1201 Metoprolol Tartrate 6.25 MG BID 11/20 1000 AC 11/22 PO 2224 Oxycodone/ 1 TAB Q6P PRN 11/20 0930 AC 11/23 Acetaminophen PO 0119 Polyethylene Glycol 17 GM DAILY 11/21 1814 AC PO Senna/Docusate Sodium 2 TAB DAILY 11/21 1815 AC 11/22 PO 0945 Tamsulosin HCl 0.4 MG DAILY 11/20 1000 AC 11/22 PO 0945 Tiotropium [place] 1 PUF 1000 11/20 1000 AC 11/22 INH 0945 Vancomycin HCl 1,500 MG DAILY 11/22 1000 CAN Dextrose/Water 250 ML IV Vancomycin HCl 1,500 MG ONCE ONE 11/22 0745 CAN Dextrose/Water 250 ML IV 11/22 0844 Warfarin Sodium 7.5 MG COUMADIN 1700 ONE 11/22 1700 DC 11/22 PO 11/22 1701 1644 Last 24 Hrs of Lab/Hunter Results Last 24 Hrs of Labs/Mics: Laboratory Tests 11/23/16 0635: Sodium Pending, Potassium Pending, Chloride Pending, Carbon Dioxide Pending, Anion Gap Pending, BUN Pending, Creatinine Pending, BUN/Creatinine Ratio Pending , PT Pending, INR Pending, CBC w Diff Pending, WBC Pending, RBC Pending, Hgb Pending, Hct Pending, MCV Pending, MCH Pending, RDW Pending, Plt Count Pending, MPV Pending, PUBS MCHC Pending Assessment/Plan Assessment: 86-year-old gentlemen with pmh of COPD, hypertension, dyslipidemia, diabetes mellitus, cardiomyopathy, aortic stenosis, atrial fibrillation on warfarin s/p atrioventricular node ablation with initial permanent pacemaker implantation () with generator replacements (10/18/2001; 03/29/2006; 04/07/2015), heart failure with preserved EF, recent diagnosis of exophytic upper rectal cancer s/p elective colonoscopy (11/17/2016) after which he had worsening shortness of breath. Today his breathing has improved. 1 of 2 blood cultures prelim report shows # Acute on chronic hypercapnic resp failure 2/2 acute on CHF (HFpEF) Patient currently requires 5-6 liters of oxygen. * Oxygen support as needed to maintain O2 sat > 92% * TRC neb tx as needed * Plans as discussed below for CHF management * Pulm following, appreciate recs # HFpEF Repeat CXR (11/21) shows no improvement in pulmonary edema with [id number] bilateral pleural effusions. * Continue strict I's and O's, daily weights * Cont IV Lasix 40mg BID * Appreciate cardio recs # Leukocytosis with a mild fever Blood blood culture positive in 1/2 bottles growing coag negative and alpha strep, most likely due to contamination. Patient has had a mild leukocytosis with a mild fever up to 100F since the admission. Patient received 2 days of vancomycin which was discontinued upon the ID of the bacteria in bcx. No source of infection identified at this point. * Cont to monitor for signs of infection, vitals per protocl - patient is borderline feverish with a temp of 100F * Check CBC daily, trend WBC * Per ID rec, discontinued Vanco on 11/23 as bcx shows coa negative which is most likely indicative of contamination * Follow blood culture ID & sensitivity # Atrial fibrillation * Cont tele monitoring * INR daily and dose warfarin accordingly - INR today 2.2, Coumadin 5mg given. * Appreciate cardio recs # BPH * Continue home med Flomax # Diabetes * Monitor fingersticks, diabetic diet, place on insulin sliding scale # Colorectal cancer Patient does not wish any further aggressive management of his rectal cancer. * Outpaitent GI followup # Chronic medical conditions * Continue home meds of Lopressor, lisinopril, statin for HTN/HLD * Coont home med gabapentin for neuropathy # Heart healthy diet # Mild pain pathway # DVT prophylaxis with Coumadin # DNR/DNI Problem List: 1. CHF (congestive heart failure) 2. Acute respiratory failure with hypoxia 3. Diabetes 4. Tobacco abuse 5. Flash pulmonary edema 6. Osteoarthritis of right knee 7. Aortic stenosis Pain Ratin Pain Location: 0 Pain Goal: Remain pain free Pain Plan: Moderate pathway Tomorrow's Labs & Rationales: CBC to check WBC for possible infection INR to dose Coumadin Consulting Request: Consulting Specialty: Cardiology YURI MXION,MANDI 11/23/16 1132: Attending MD Review Statement Attending Statement Attending MD Statement: examined this patient, discuss w/resident/PA/MOVIE SHOT CAMERA OPERATOR, agreed w/resident/PA/MOVIE SHOT CAMERA OPERATOR, reviewed EMR data (avail), discussed with nursing, discussed with case mgmt, reviewed images Attending Assessment/Plan: Events overnight noted. Patient became confused, presumed hypercapnic respiratory failure. And he refused his BiPAP. He is an 86-year-old male with obesity hypoventilation, chronic respiratory failure here with acute on chronic respiratory failure secondary to heart failure diastolic and valvular disease. He takes Lasix 20 by mouth twice a day as an outpatient and we have him on 40 IV twice a day and he is going into mild REY. Today's chest x-ray is essentially unchanged and we still need the aggressive diuresis to titrate down the O2 requirement. He has A. fib on Coumadin and his INR is therapeutic. He has this new diagnosis of rectal cancer and is very adamant about not pursuing any treatment for it and wanting to change to comfort measures should he deteriorate. His blood cultures grew more than one organism likely all contaminants with coag negative staph and his repeat cultures are negative so we stopped the antibiotics and are watching him off it.
[2016-11-23 08:16] VITALS: BP 120/54
[2016-11-23 08:21] LABS: PT 22.9 SEC (9.4-12.5)
[2016-11-23 08:24] LABS: ABSOLUTE BASOPHIL COUNT 0.1 /CUMM (0.0-0.2); ABSOLUTE EOSINOPHIL COUNT 0.1 /CUMM (0.0-0.7); ABSOLUTE GRANULOCYTE CT 7.8 /CUMM (1.4-6.5); ABSOLUTE LYMPH COUNT 1.1 /CUMM (1.2-3.4); ABSOLUTE MONOCYTE COUNT 1.3 /CUMM (0.10-0.60); BASOPHIL % 0.6 % (0.0-2.0); EOSINOPHIL % 0.5 % (0-5); GRANULOCYTE % 75.6 % (42.2-75.2); HEMATOCRIT 31.3 % (42-52); MEAN CORPUSCULAR HGB 28.4 PG (27.0-31.0); MEAN CORPUSCULAR HGB CONC 32.2 G/DL (33.0-37.0); MEAN PLATELET VOLUME 7.3 FL (7.4-10.4); PLATELET COUNT 284 /CUMM (130-400); RBC DISTRIBUTION WIDTH 15.4 % (11.5-14.5); RED BLOOD CELL CT 3.56 /CUMM (4.70-6.10); WHITE BLOOD CELL COUNT 10.3 /CUMM (4.8-10.8)
--- NOTE | 2016-11-23 08:30 | PN- Student ---
Subjective Subjective: 86 y.o. male seen and examined at bedside. Pt has no complaints and says he is feeling better. Denies SOB, O2 sat 90% on 6L O2 by nasal cannula. He says his breathing is better on CPAP but he did not use it last night. Denies any chest pain. Good appetite, denies nausea/vomiting. Blood cultures 1 of 2 bottles grew coagulase negative staph and alpha strep, temp this morning 100F, pt denies subjective fevers/chills. Objective Objective: Tele events: atrial flutter, rate 60-70's General: pt laying in bed in no acute distress, mild respiratory distress, somnolent arousable to voice, follows commands Cardiac: heart sounds distant, S1 and S2 heard Lungs: CTA bilaterally, no W/R/R MSK: no LE edema, calves soft and nontender, pedal pulses 2+ bilaterally Psych: speech confused, minimally cooperative with interview and exam Results Results: Laboratory Tests 11/23/16 0635: Sodium Pending, Potassium Pending, Chloride Pending, Carbon Dioxide Pending, Anion Gap Pending, BUN Pending, Creatinine Pending, BUN/Creatinine Ratio Pending , PT 22.9 H, INR 2.20 H, CBC w Diff Pending, WBC Pending, RBC Pending, Hgb Pending, Hct Pending, MCV Pending, MCH Pending, RDW Pending, Plt Count Pending, MPV Pending, PUBS MCHC Pending 11/22/16 0735: Anion Gap 11, Estimated GFR 58 L, BUN/Creatinine Ratio 26.7 H, Magnesium 1.9, PT 18.9 H, INR 1.81 H, CBC w Diff NO MAN DIFF REQ, RBC 3.89 L, MCV 88.1, MCH 28.5, RDW 15.2 H, MPV 7.3 L, Gran % 76.5 H, Lymphocytes % 9.1 L, Monocytes % 10.8 H, Eosinophils % 2.9, Basophils % 0.7, Absolute Granulocytes 9.2 H, Absolute Lymphocytes 1.1 L, Absolute Monocytes 1.3 H, Absolute Eosinophils 0.4 , Absolute Basophils 0.1, PUBS MCHC 32.3 L 11/21/16 1148: CBC w Diff NO MAN DIFF REQ, RBC 3.98 L, MCV 87.1, MCH 28.8, RDW 15.2 H, MPV 7.4, Gran % 77.1 H, Lymphocytes % 11.6 L, Monocytes % 10.4 H, Eosinophils % 0 , Basophils % 0.9, Absolute Granulocytes 9.2 H, Absolute Lymphocytes 1.4, Absolute Monocytes 1.2 H, Absolute Eosinophils 0, Absolute Basophils 0.1, PUBS MCHC 33.0 11/21/16 0620: Anion Gap 8, Estimated GFR 58 L, BUN/Creatinine Ratio 21.7, Magnesium 1.8, Total Bilirubin 1.2, Direct Bilirubin 0.6 H, AST 26, ALT 37, Alkaline Phosphatase 123, Total Protein 6.3, Albumin 2.7 L, PT 17.1 H, INR 1.64 H 11/20/16 1320: Magnesium 1.7, Troponin I 0.02 Microbiology 11/21 1148 BLOOD: Blood Culture - RES 11/21 1135 BLOOD: Blood Culture - RES Assessment/Plan Assessment: 86 y.o. male h/o atrial fibrillation, aortic stenosis, diastolic dysfunction, HTN, hyperlipidemia, DMII admitted with dyspnea worsening over 4 days after colonoscopy found to have pulmonary edema on CXR recovering well. Pt is on 3L O2 at home but has been requiring 5-6L. Does not consistently use CPAP at night. Diuresis with 40 mg IV Lasix BID, fluid balance has been overall negative. Repeat CXR on 11/23 showed unimproved pulmonary edema and bilateral pleural effusions. Echo showed preserved EF >65%, mild to moderate , and moderate pulmonary hypertension. 1 of 2 blood culture bottles drawn on 11/20 grew coagulase negative staph and alpha strep, repeat blood cultures drawn on 11/21 have not shown any growth. Probable contamination, mildly febrile with tmax of 100F, currently not on antibiotics. Plan: Pulmonary edema/CHF: - continue nasal cannula O2 - encourage CPAP use at night - TRC nebulizer treatment PRN - continue strict I/O's and daily weights - continue IV Lasix 40 mg - follow pulmonary and cardiology recomendations Mild fever/leukocytosis: - monitor vital signs for signs of infection - CBC daily - follow repeat blood cultures from 11/21 Atrial fibrillation: - INR today 2.20, dose coumadin - daily INR
--- NOTE | 2016-11-23 10:01 | RADIOLOGY REPORT ---
EXAMINATION: XR CHEST CLINICAL INFORMATION: 86-year-old male patient with shortness of breath. COMPARISON: Baseline exam performed on 06/17/2016. Recent x-rays from 11/14/2016 through 11/22/2016. TECHNIQUE: 2 views of the chest were obtained. FINDINGS: Reexamination reveals cardiomegaly and bilateral alveolar pulmonary edema which is not improved. There are small bilateral pleural effusions. The right pectoral pacemaker wires are in the right atrium and right ventricle. The left pectoral pacemaker is connected to an orphan lead to the right ventricle. IMPRESSION: No significant improvement in the bilateral pleural effusions and pulmonary edema due to CHF.
--- NOTE | 2016-11-23 10:11 | PN- Pulmonary ---
Subjective HPI/Critical Care Issues: Confused last night Low grade temp Did not use bipap last night Cxr done this am suggest worsening edema No sig cough Mild chest discomfort in the rt lower chest area Objective Current Medications: Current Medications Sig/Elier Start time Last Medication Dose Route Stop Time Status Admin Acetaminophen 650 MG Q6 PRN 11/20 0545 AC 11/23 PO 0858 Albuterol Sulfate 3 ML BID 11/20 1000 AC 11/23 INH 0838 Atorvastatin Calcium 20 MG 1700 11/20 1700 AC 11/22 PO 1644 Furosemide 40 MG BID 11/21 2200 AC 11/23 IV 0858 Gabapentin 200 MG TID 11/20 1000 AC 11/23 PO 0857 Insulin Aspart 0 TIDAC 11/20 0800 AC 11/23 SC 0800 Lisinopril 10 MG DAILY 11/20 1000 AC 11/23 PO 0857 Metoprolol Tartrate 6.25 MG BID 11/20 1000 AC 11/23 PO 0857 Oxycodone/ 1 TAB Q6P PRN 11/20 0930 AC 11/23 Acetaminophen PO 0119 Polyethylene Glycol 17 GM DAILY 11/21 1814 AC 11/23 PO 0858 Senna/Docusate Sodium 2 TAB DAILY 11/21 1815 AC 11/23 PO 0857 Tamsulosin HCl 0.4 MG DAILY 11/20 1000 AC 11/23 PO 0858 Tiotropium [place] 1 PUF 1000 11/20 1000 AC 11/22 INH 0945 Warfarin Sodium 7.5 MG COUMADIN 1700 ONE 11/22 1700 DC 11/22 PO 11/22 1701 1644 Vital Signs & I&O Last 24 Hrs of Vitals and I&O: Vital Signs Date Time Temp Pulse Resp B/P Pulse O2 O2 Flow FiO2 Ox Delivery Rate 11/23 1001 98.9 11/23 0958 98.9 11/23 0900 92 Nasal 5.0L Cannula 11/23 0858 100.0 11/23 0858 60 122/56 11/23 0857 60 120/54 11/23 0857 60 122/56 11/23 0816 100.0 60 22 120/54 90 Nasal 6.0L Cannula 11/23 0225 60 90 11/23 0000 Nasal 5.0L Cannula 11/22 2349 98.4 64 20 138/70 94 CPAP 11/229 62 92 11/22 2224 61 13811/22 Nasal 5.0L Cannula 11/23 1599 90 Nasal 5.0L Cannula 11/22 1554 98.8 66 22 132/70 90 Nasal 5.0L Cannula 11/22 1046 92 Nasal 5.0L Cannula Intake & Output 11/23 1600 11/23 0800 11/23 0000 Intake Total 150 700 Output Total 250 150 Balance -100 550 Intake, IV 0 Intake, Oral 150 700 Number 2 Bowel Movements Output, Urine 250 150 Patient 231 lb Weight Laboratory Tests 11/23 11/22 0635 0735 Chemistry Sodium (137 - 145 mmol/L) 140 140 Potassium (3.5 - 5.1 mmol/L) 4.4 4.6 Chloride (98 - 107 mmol/L) 100 98 Carbon Dioxide (22 - 30 mmol/L) 29 32 H Anion Gap (5 - 16) 10 11 BUN (9 - 20 mg/dL) 47 H 32 H Creatinine (0.7 - 1.2 mg/dL) 1.4 H 1.2 Estimated GFR (>60 ml/min) 48 L 58 L BUN/Creatinine Ratio (7 - 25 %) 33.6 H 26.7 H Magnesium (1.6 - 2.3 mg/dL) 1.9 Coagulation PT (9.4 - 12.5 SEC) 22.9 H 18.9 H INR (0.90 - 1.17) 2.20 H 1.81 H Hematology CBC w Diff NO MAN DIFF REQ NO MAN DIFF REQ WBC (4.8 - 10.8 /CUMM) 10.3 12.0 H RBC (4.70 - 6.10 /CUMM) 3.56 L 3.89 L Hgb (14.0 - 18.0 G/DL) 10.1 L 11.1 L Hct (42 - 52 %) 31.3 L 34.3 L MCV (80.0 - 94.0 FL) 88.0 88.1 MCH (27.0 - 31.0 PG) 28.4 28.5 RDW (11.5 - 14.5 %) 15.4 H 15.2 H Plt Count (130 - 400 /CUMM) 284 312 MPV (7.4 - 10.4 FL) 7.3 L 7.3 L Gran % (42.2 - 75.2 %) 75.6 H 76.5 H Lymphocytes % (20.5 - 51.1 %) 10.7 L 9.1 L Monocytes % (1.7 - 9.3 %) 12.6 H 10.8 H Eosinophils % (0 - 5 %) 0.5 2.9 Basophils % (0.0 - 2.0 %) 0.6 0.7 Absolute Granulocytes (1.4 - 6.5 /CUMM) 7.8 H 9.2 H Absolute Lymphocytes (1.2 - 3.4 /CUMM) 1.1 L 1.1 L Absolute Monocytes (0.10 - 0.60 /CUMM) 1.3 H 1.3 H Absolute Eosinophils (0.0 - 0.7 /CUMM) 0.1 0.4 Absolute Basophils (0.0 - 0.2 /CUMM) 0.1 0.1 PUBS MCHC (33.0 - 37.0 G/DL) 32.2 L 32.3 L 11/21 1148 Hematology CBC w Diff NO MAN DIFF REQ WBC (4.8 - 10.8 /CUMM) 12.0 H RBC (4.70 - 6.10 /CUMM) 3.98 L Hgb (14.0 - 18.0 G/DL) 11.4 L Hct (42 - 52 %) 34.6 L MCV (80.0 - 94.0 FL) 87.1 MCH (27.0 - 31.0 PG) 28.8 RDW (11.5 - 14.5 %) 15.2 H Plt Count (130 - 400 /CUMM) 286 MPV (7.4 - 10.4 FL) 7.4 Gran % (42.2 - 75.2 %) 77.1 H Lymphocytes % (20.5 - 51.1 %) 11.6 L Monocytes % (1.7 - 9.3 %) 10.4 H Eosinophils % (0 - 5 %) 0 Basophils % (0.0 - 2.0 %) 0.9 Absolute Granulocytes (1.4 - 6.5 /CUMM) 9.2 H Absolute Lymphocytes (1.2 - 3.4 /CUMM) 1.4 Absolute Monocytes (0.10 - 0.60 /CUMM) 1.2 H Absolute Eosinophils (0.0 - 0.7 /CUMM) 0 Absolute Basophils (0.0 - 0.2 /CUMM) 0.1 PUBS MCHC (33.0 - 37.0 G/DL) 33.0 Microbiology Date/Time Procedure - Status Source Growth 11/21 1148 Blood Culture - RES BLOOD 11/21 1135 Blood Culture - RES BLOOD Impression/Plan Impression/Plan Impression/Plan: eneral: awake and alert, sitting up in bed eating breakfast in no acute distress Neck: supple, no JVD noted Cardiac: S1 and S2 heard, irregularly irregular Lungs: no respiratory distress or accessory muscle use, CTA bilaterally, no W/R/ R MSK: no LE edema, pedal pulses 2+ bilaterally Psych: appropriate and cooperative with exam IMPRESSION This is an elderly gentleman with history of significant smoking with atrial fibrillation/flutter on warfarin, morbid obesity with signs and symptoms suggestive of sleep apnea, pacemaker with pacemaker induced cardiomyopathy, diabetes, significant arthritis, came in with hypoxia chest tightness and dyspnea with aortic stenosis most likely related to fluid overload. His issues include * Dyspnea which is improving most likely related to bilateral pleural effusion and pulmonary edema from diastolic and valvular heart * Recently diagnosed large rectal cancer patient is refusing any kind of therapy wishes to be made comfort if he gets worse in the future. Has low grade temp on admission now little better and has one out of two bottles positive for multiple organisms * Confusion last night due to prob hypercarbia with sun downing. He has hypercarbia related to sleep associated hypoventilation with COPD. Supposed to be on BiPAP at home but he does not wish to use this regularly but he has been using oxygen. His hypersomnia and sleep associated hypoventilation did improve with BiPAP however. * Atrial fibrillation flutter on warfarin with hyperlipidemia and diabetes which seems to be moderately well-controlled endocrine is on board * No clinical evidence suggestive of significant pneumonia * Pulmonary hypertension most likely related to diastolic heart disease aortic stenosis and probable sleep apnea * Chronic lung disease with evidence suggestive of mild COPD with chronic bronchitis * Significant degenerative joint disease RECOMMENDATION Continue oxygen, attempt to use bipap during the day and at hs Can increase beta sage if needed, as he is not actively wheezing Gentle diuresis Attempt to use BiPAP at night if patient is willing to do that As needed nebulizer therapy Discussed with patient extensively about his decision to not pursue any therapy for his rectal cancer and he says he is already discussed with his family and he wishes no further therapy for rectal cancer. If he gets worse he wished to be made comfort RX neuropathic pain Continue his gabapentin Follow cultures, pt has low grade temp with lela strep, Rpt cultures pending We will follow
--- NOTE | 2016-11-23 13:08 | PN- Cardiology ---
Subjective Subjective: "I had a bad night." States he was incontinent of stool. Feels as though his breathing is unchanged, however, his oxygen requirement has increased. Objective Vital Signs and I&Os Vital Signs Date Time Temp Pulse Resp B/P Pulse O2 O2 Flow FiO2 Ox Delivery Rate 11/23 1001 98.9 11/23 0958 98.9 11/23 0900 92 Nasal 5.0L Cannula 11/23 0858 100.0 11/23 0858 60 122/56 11/23 0857 60 120/54 11/23 0857 60 122/56 11/23 0816 100.0 60 22 120/54 90 Nasal 6.0L Cannula 11/23 0225 60 90 11/23 0000 Nasal 5.0L Cannula 11/22 2349 98.4 64 20 138/70 94 CPAP 11/22 2239 62 92 11/22 2224 61 138/70 11/22 2008 92 Nasal 5.0L Cannula 11/22 1600 90 Nasal 5.0L Cannula 11/22 1554 98.8 66 22 132/70 90 Nasal 5.0L Cannula Intake & Output 11/23 1600 11/23 0800 11/23 0000 11/22 1600 11/22 0800 11/22 0000 Intake Total 150 700 520 240 120 Output Total 250 150 475 690 150 Balance -100 550 45 -450 -30 Intake, IV 0 Intake, Oral 150 700 520 240 120 Number 2 1 1 Bowel Movements Output, Urine 250 150 475 690 150 Patient 231 lb 229 lb 232 lb Weight Physical Exam: Obese, elderly male in no acute respiratory distress with nasal oxygen in place. Vital signs: See above. Lungs: Decreased breath sounds bilaterally with basilar crackles. Heart: S1, S2. Extremities: No edema. Current Medications: Current Medications Sig/Elier Start time Last Medication Dose Route Stop Time Status Admin Acetaminophen 650 MG Q6 PRN 11/20 0545 AC 11/23 PO 0858 Albuterol Sulfate 3 ML BID 11/20 1000 AC 11/23 INH 0838 Atorvastatin Calcium 20 MG 1700 11/20 1700 AC 11/22 PO 1644 Furosemide 40 MG BID 11/21 2200 AC 11/23 IV 0858 Gabapentin 200 MG TID 11/20 1000 AC 11/23 PO 0857 Insulin Aspart 0 TIDAC 11/20 0800 AC 11/23 SC 1135 Lisinopril 10 MG DAILY 03/12 1000 AC 11/23 PO 0857 Metoprolol Tartrate 6.25 MG BID 11/20 1000 AC 11/23 PO 0857 Oxycodone/ 1 TAB Q6P PRN 11/20 0930 AC 11/23 Acetaminophen PO 0119 Polyethylene Glycol 17 GM DAILY 11/21 1814 AC 11/23 PO 0858 Senna/Docusate Sodium 2 TAB DAILY 11/21 181 AC 11/23 PO 0857 Tamsulosin HCl 0.4 MG DAILY 11/20 1000 AC 11/23 PO 0858 Tiotropium [place] 1 PUF 1000 11/20 1000 AC 11/22 INH 0945 Warfarin Sodium 5 MG COUMADIN 1700 ONE 11/23 1700 AC PO 11/23 1701 Warfarin Sodium 7.5 MG COUMADIN 1700 ONE 11/22 1700 DC 11/22 PO 11/22 1701 1644 Results Last 48 Hrs of Labs/Mics: Laboratory Tests 11/23/16 0635: Anion Gap 10, Estimated GFR 48 L, BUN/Creatinine Ratio 33.6 H, PT 22.9 H, INR 2.20 H, CBC w Diff NO MAN DIFF REQ, RBC 3.56 L, MCV 88.0, MCH 28.4, RDW 15.4 H, MPV 7.3 L, Gran % 75.6 H, Lymphocytes % 10.7 L, Monocytes % 12.6 H, Eosinophils % 0.5, Basophils % 0.6, Absolute Granulocytes 7.8 H, Absolute Lymphocytes 1.1 L, Absolute Monocytes 1.3 H, Absolute Eosinophils 0.1, Absolute Basophils 0.1, PUBS MCHC 32.2 L 11/22/16 0735: Anion Gap 11, Estimated GFR 58 L, BUN/Creatinine Ratio 26.7 H, Magnesium 1.9, PT 18.9 H, INR 1.81 H, CBC w Diff NO MAN DIFF REQ, RBC 3.89 L, MCV 88.1, MCH 28.5, RDW 15.2 H, MPV 7.3 L, Gran % 76.5 H, Lymphocytes % 9.1 L, Monocytes % 10.8 H, Eosinophils % 2.9, Basophils % 0.7, Absolute Granulocytes 9.2 H, Absolute Lymphocytes 1.1 L, Absolute Monocytes 1.3 H, Absolute Eosinophils 0.4 , Absolute Basophils 0.1, PUBS MCHC 32.3 L Recent Imaging Studies: CXR (11/23/2016): No significant improvement in the bilateral pleural effusions and pulmonary edema due to CHF. Echocardiogram (11/21/2016): Normal size left ventricle. Moderate concentric left ventricular hypertrophy. No obvious regional wall motion abnormalities. Normal left ventricular ejection fraction visually estimated at >65%. Mild right ventricular dilatation. Mild to moderate right atrial dilatation. Catheter/pacemaker wires in the right heart. Moderate left atrial dilatation. Trace mitral regurgitation. Mild to moderate aortic stenosis. Mild tricuspid regurgitation. Moderate pulmonary hypertension. Mild aortic dilatation at the level of the sinuses of valsalva (root). Mildly to moderately dilated proximal ascending aorta (tube). Assessment/Plan Assessment/Plan Mr. Casanova is an 86-y-o m w/ history of tob use, presumed COPD, obesity, suspected RAJAN, HTN, HLD, DM, LVH, CM, , AF on warfarin, s/p AVN ablation/ppm, and previous HFpEF who presented with complaints of progressive SOB s/p colonoscopy (11/17/2016) c/w an exophytic upper rectal cancer with bleeding w/o obstruction. Last echo performed 06/14/2016 revealed: LV at the UNL size, moderate concentric LVH, abnormal septal motion c/w pacemaker activation, no other obvious regional wall motion abnormalities, a normal LV EF estimated at >55%, mild RV dilatation, mild to moderate RA dilatation w/ ppm in Rt Ht, mild to moderate LA dilatation trace to mild MR, mild , mild TR, mild pulmonary HTN, a mildly dilated proximal Asc Ao, and a dilated IVC. Note that Mr. Casanova underwent a pharmacologic (Regadenoson) stress test on 02/20/2016 that revealed no nuclear evidence of ischemia. Impression: Acute diastolic heart failure likely secondary to moderate concentric left ventricular hypertrophy as result of his long-standing hypertension. Not sure how accurate input/output puts have been, however, if they are accurate he has been in a positive fluid balance since admission. He admits to drinking a lot of fluid and eating a lot of ice cream. Note worsening BUN/creatinine. Recommendations: * Continue strict inputs/outputs and daily weights. * Today's CXR (11/23/2016) c/w persistent HF. * Increase IV furosemide to 60 mg twice daily and fluid restrict. * Repeat CXR in a.m. * Note that repeat echocardiogram revealed preserved left ventricular systolic function and left ventricular hypertrophy with presumed diastolic dysfunction, mild to moderate , etc. without any evidence of obvious valvular vegetations. * Continue DVT prophylaxis. Note INR therapeutic today at 2.2. Continue telemetry? Yes (CHF)
[2016-11-23 15:22] VITALS: BP 100/52
[2016-11-23 22:00] VITALS: BP 90/60
--- NOTE | 2016-11-24 07:59 | PN- Housestaff ---
JOHN MIXON,KAELA 11/24/16 0758: Subjective Follow-up For: Pulmonary edema/effusion Acute hypoxic resp failure Tele-Events Since Last Visit: Afib, HR 50-60s Subjective: Patient seen and examined at bedside. He is fully awake, alert and oriented x 3. He reports not feeling well due to dyspnea and headache which he rates as 5 out of 10. Satting at 95% on 5L oxygen. Denies any f/c, headache, chest pain, palpitations, n/v/c/d, dizziness/lightheadedness. Review of Systems Constitutional: Reports: see HPI. Objective Last 24 Hrs of Vital Signs/I&O Vital Signs Date Time Temp Pulse Resp B/P Pulse O2 O2 Flow FiO2 Ox Delivery Rate 11/24 0816 99.3 63 24 144/60 90 Nasal 6.0L Cannula 11/24 0100 60 92 11/24 0000 CPAP 11/23 2200 99.0 62 20 90/60 92 Nasal 5.0L Cannula 11/23 1911 90 Nasal 5.0L Cannula 11/23 1600 Nasal 5.0L Cannula 11/23 1522 98.4 63 22 100/52 92 Nasal 5.0L Cannula 11/23 1001 98.9 11/23 0958 98.9 11/23 0900 92 Nasal 5.0L Cannula 11/23 0858 100.0 11/23 0858 60 122/56 11/23 0857 60 120/54 11/23 0857 60 122/56 Intake & Output 11/24 1600 16 0800 11/24 0000 Intake Total 100 Output Total 300 Balance -200 Intake, Oral 100 Number 1 Bowel Movements Output, Urine 300 Patient 101.151 kg Weight Physical Exam General Appearance: Alert, Oriented X3, Cooperative, No Acute Distress Current Medications: Current Medications Sig/Elier Start time Last Medication Dose Route Stop Time Status Admin Acetaminophen 650 MG .STK-MED ONE 11/23 223 DC PO 11/23 223 Acetaminophen 650 MG Q6 PRN 11/20 0545 AC 11/23 PO 0858 Albuterol Sulfate 3 ML BID 11/20 1000 AC 11/23 INH 1910 Atorvastatin Calcium 20 MG 1700 / 1700 AC / PO 1751 Furosemide 40 MG BID 11/21 2200 AC 11/23 IV 2200 Gabapentin 200 MG TID 11/20 1000 AC 03/15 PO 2200 Insulin Aspart 0 TIDAC 11/20 0800 AC 11/23 SC 1135 Lisinopril 10 MG DAILY 11/20 1000 AC 11/23 PO 0857 Metoprolol Tartrate 6.25 MG BID 11/20 1000 AC 11/23 PO 0857 Oxycodone/ 1 TAB Q6P PRN 11/20 0930 AC 11/23 Acetaminophen PO 0119 Polyethylene Glycol 17 GM DAILY 11/21 1814 AC 11/23 PO 0858 Senna/Docusate Sodium 2 TAB DAILY 11/21 1815 AC 11/23 PO 0857 Tamsulosin HCl 0.4 MG DAILY 11/20 1000 AC 11/23 PO 0858 Tiotropium [place] 1 PUF 1000 11/20 1000 AC 11/23 INH 1300 Warfarin Sodium 5 MG COUMADIN 1700 ONE 11/23 1700 DC 11/23 PO 11/23 1701 1751 Last 24 Hrs of Lab/Hunter Results Last 24 Hrs of Labs/Mics: Laboratory Tests 11/24/16 0645: Sodium Pending, Potassium Pending, Chloride Pending, Carbon Dioxide Pending, Anion Gap Pending, BUN Pending, Creatinine Pending, BUN/Creatinine Ratio Pending , PT Pending, INR Pending, CBC w Diff Pending, WBC Pending, RBC Pending, Hgb Pending, Hct Pending, MCV Pending, MCH Pending, RDW Pending, Plt Count Pending, MPV Pending, PUBS MCHC Pending Assessment/Plan Assessment: 86-year-old gentlemen with pmh of COPD, hypertension, dyslipidemia, diabetes mellitus, cardiomyopathy, aortic stenosis, atrial fibrillation on warfarin s/p atrioventricular node ablation with initial permanent pacemaker implantation with generator replacements, HFpEF, recent diagnosis of exophytic upper rectal cancer s/p elective colonoscopy (11/17/2016), presents with worsening shortness of breath 2/2 CHF exacerbation. 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 ABG (11/24) consistent with compensated resp acidosis (pH 7.37, pCO2 79, pO2 79, HCO3 29). * Oxygen support as needed to maintain O2 sat > 92% * TRC neb tx as needed * Plans as discussed below for CHF management * Pulm following, appreciate recs # HFpEF Repeat CXR (11/21) shows no improvement in pulmonary edema with [id number] bilateral pleural effusions. * Continue strict I's and O's, daily weights * Hold Lasix and lisinopril * Appreciate cardio recs # REY Patient's creatinine trending up as of 11/23 after being on Lasix 40mg BID IV for several days. * Avoid nephrotoxins * Check BEP daily, trend Cr - 1.5 today # Leukocytosis with a mild fever Blood blood culture positive in 1/2 bottles growing coag negative and alpha strep, most likely due to contamination. Patient has had a mild leukocytosis with a mild fever up to 100F since the admission. Patient received 2 days of vancomycin which was discontinued as bcx shows coa negative which is most likely indicative of contamination. Most likely source at this point is aspiration pneumonia as suggested by the CXR finding. * Cont to monitor for signs of infection, vitals per protocl - patient is borderline feverish with a Tmax of 101.6 * Check CBC daily, trend WBC - trending down * Follow blood culture ID & sensitivity * Start IV Unasyn # Atrial fibrillation * Cont tele monitoring * INR daily and dose warfarin accordingly * Appreciate cardio recs # BPH * Continue home med Flomax # Diabetes * Monitor fingersticks, diabetic diet, place on insulin sliding scale # Colorectal cancer Patient does not wish any further aggressive management of his rectal cancer. * Outpaitent GI followup # Chronic medical conditions * Continue home meds of Lopressor, lisinopril, statin for HTN/HLD * Coont home med gabapentin for neuropathy # Heart healthy diet # Mild pain pathway # DVT prophylaxis with Coumadin # DNR/DNI Problem List: 1. Osteoarthritis of right knee 2. Chest pain 3. Aortic stenosis 4. CHF (congestive heart failure) 5. Acute respiratory failure with hypoxia 6. Diabetes 7. Tobacco abuse 8. Flash pulmonary edema Pain Ratin Pain Location: Head/neck Pain Goal: Remain pain free Pain Plan: Percocet Q6 PRN Tomorrow's Labs & Rationales: CBC - trend H/H for anemia BEP - trend renal function in the setting of REY INR - to dose Coumadin DVT/Prophylaxis: pharmacological Consulting Request: Consulting Specialty: Cardiology YURI MIXON,MANDI 11/24/16 1333: Attending Review Statement Attending Statement Attending MD Statement: examined this patient, discuss w/resident/PA/[employer], discussed with family, reviewed EMR data (avail), discussed with nursing, discussed with case mgmt, reviewed images Attending Assessment/Plan: Patient is having episodes of delirium, likely sundowning with confusion. Today he also developed acute hypercapnic respiratory acidosis with a fever of 101. The stat chest x-ray continues to show bilateral opacities. I talked to Andrea Nieves MD who thinks the patient could be aspirating. Stop all narcotics. We are going to culture him up and start him on IV Unasyn. His renal function is acutely worsening and now he is developing borderline hyperkalemia. We'll stop the Lasix and the lisinopril. Will need to follow him closely. Get a swallow eval. Continue BiPAP and follow closely.
[2016-11-24 08:14] LABS: ABSOLUTE BASOPHIL COUNT 0.1 /CUMM (0.0-0.2); ABSOLUTE EOSINOPHIL COUNT 0.1 /CUMM (0.0-0.7); ABSOLUTE GRANULOCYTE CT 7.2 /CUMM (1.4-6.5); ABSOLUTE MONOCYTE COUNT 1.3 /CUMM (0.10-0.60); BASOPHIL % 0.7 % (0.0-2.0); EOSINOPHIL % 1.5 % (0-5); GRANULOCYTE % 74.2 % (42.2-75.2); HEMATOCRIT 31.9 % (42-52); MEAN CORPUSCULAR HGB 28.3 PG (27.0-31.0); MEAN CORPUSCULAR HGB CONC 32.3 G/DL (33.0-37.0); MEAN CORPUSCULAR VOLUME 87.6 FL (80.0-94.0); MEAN PLATELET VOLUME 7.2 FL (7.4-10.4); PLATELET COUNT 315 /CUMM (130-400); RBC DISTRIBUTION WIDTH 15.6 % (11.5-14.5); RED BLOOD CELL CT 3.64 /CUMM (4.70-6.10); WHITE BLOOD CELL COUNT 9.7 /CUMM (4.8-10.8)
[2016-11-24 08:16] VITALS: BP 144/60
[2016-11-24 08:44] LABS: PT 25.5 SEC (9.4-12.5)
--- NOTE | 2016-11-24 11:11 | RADIOLOGY REPORT ---
EXAMINATION: XR PORTABLE CHEST CLINICAL INFORMATION: Fever and confusion. Underlying oxygen dependence. Aspiration pneumonia. COMPARISON: 11/20/2016 to 11/23/2016 TECHNIQUE: Portable AP view of the chest was obtained. FINDINGS: There is motion on the acquisition. Bilateral cardiac pacemakers are redemonstrated. Cardiomegaly is stable. There is motion on the image. Bilateral airspace opacification with a perihilar and lower lobe predominance may be minimally improved from 11/23/2016. Small bilateral pleural effusions may be present. IMPRESSION: Motion degraded image with equivocal minimal improvement in the patchy bilateral airspace opacification relative to 11/23/2016, suggesting CHF. Superimposed pneumonia or aspiration pneumonitis is not excluded.
--- NOTE | 2016-11-24 12:24 | PN- Pulmonary ---
Subjective HPI/Critical Care Issues: Patient seen and examined at bedside. He is fully awake, alert and oriented x 3. He reports not feeling well due to dyspnea and headache which he rates as 5 out of 10. Satting at 95% on 5L oxygen. Denies any f/c, headache, chest pain, palpitations, n/v/c/d, dizziness/lightheadedness. Review of Systems Constitutional: Reports: see HPI. Objective Current Medications: Current Medications Sig/Elier Start time Last Medication Dose Route Stop Time Status Admin Acetaminophen 650 MG .STK-MED ONE 11/24 2235 DC PO 11/23 223 Acetaminophen 650 MG Q6 PRN 11/20 0545 AC 11/24 PO 1112 Albuterol Sulfate 3 ML BID 11/20 1000 AC 11/24 INH 1101 Ampicillin Sodium/ 1,500 MG Q6 11/24 1200 AC Sulbactam Sodium IV Sodium Chloride 100 ML Atorvastatin Calcium 20 MG 1700 11/20 1700 AC 11/23 PO 1751 Furosemide 40 MG BID 11/21 2200 DC 11/23 IV 2200 Gabapentin 200 MG TID 11/20 1000 AC 11/24 PO 1112 Insulin Aspart 0 TIDAC 11/20 0800 AC 11/23 SC 1135 Lisinopril 10 MG DAILY 11/20 1000 DC 11/23 PO 0857 Metoprolol Tartrate 6.25 MG BID 11/20 1000 AC 11/24 PO 1112 Oxycodone/ 1 TAB Q6P PRN 11/20 0930 AC 11/23 Acetaminophen PO 0119 Polyethylene Glycol 17 GM DAILY 11/21 1814 AC 11/23 PO 0858 Senna/Docusate Sodium 2 TAB DAILY 11/21 1815 AC 11/23 PO 0857 Tamsulosin HCl 0.4 MG DAILY 11/20 1000 AC 11/24 PO 1112 Tiotropium [place] 1 PUF 1000 11/20 1000 AC 11/24 INH 1112 Warfarin Sodium 5 MG COUMADIN 1700 ONE 11/24 1700 AC PO 11/24 1701 Warfarin Sodium 5 MG COUMADIN 1700 ONE 11/23 1700 DC 11/23 PO 11/23 1701 1751 Laboratory Tests 11/24 11/24 1055 0645 Blood Gas pH (7.35 - 7.45 PH) 7.37 pCO2 (35 - 45 TORR) 52 H pO2 (80 - 100 TORR) 79 L HCO3 (21 - 28 MEQ/L) 29 H ABG O2 Sat (Measured) (>96.0 %) 95.0 L P-50 (Temp Corrected) N Carboxyhemoglobin (1.5 - 5.0 %) 0.3 L O2 Concentration % 7LPM O2 Delivery Method NC Chemistry Sodium (137 - 145 mmol/L) 142 Potassium (3.5 - 5.1 mmol/L) 5.1 Chloride (98 - 107 mmol/L) 102 Carbon Dioxide (22 - 30 mmol/L) 32 H Anion Gap (5 - 16) 9 BUN (9 - 20 mg/dL) 55 H Creatinine (0.7 - 1.2 mg/dL) 1.5 H Estimated GFR (>60 ml/min) 44 L BUN/Creatinine Ratio (7 - 25 %) 36.7 H Coagulation PT (9.4 - 12.5 SEC) 25.5 H INR (0.90 - 1.17) 2.45 H Hematology CBC w Diff NO MAN DIFF REQ WBC (4.8 - 10.8 /CUMM) 9.7 RBC (4.70 - 6.10 /CUMM) 3.64 L Hgb (14.0 - 18.0 G/DL) 10.3 L Hct (42 - 52 %) 31.9 L MCV (80.0 - 94.0 FL) 87.6 MCH (27.0 - 31.0 PG) 28.3 RDW (11.5 - 14.5 %) 15.6 H Plt Count (130 - 400 /CUMM) 315 MPV (7.4 - 10.4 FL) 7.2 L Gran % (42.2 - 75.2 %) 74.2 Lymphocytes % (20.5 - 51.1 %) 10.3 L Monocytes % (1.7 - 9.3 %) 13.3 H Eosinophils % (0 - 5 %) 1.5 Basophils % (0.0 - 2.0 %) 0.7 Absolute Granulocytes (1.4 - 6.5 /CUMM) 7.2 H Absolute Lymphocytes (1.2 - 3.4 /CUMM) 1.0 L Absolute Monocytes (0.10 - 0.60 /CUMM) 1.3 H Absolute Eosinophils (0.0 - 0.7 /CUMM) 0.1 Absolute Basophils (0.0 - 0.2 /CUMM) 0.1 PUBS MCHC (33.0 - 37.0 G/DL) 32.3 L Miscellaneous Phlebotomy Draw Site RIGHT BRACHIAL 11/23 0635 Chemistry Sodium (137 - 145 mmol/L) 140 Potassium (3.5 - 5.1 mmol/L) 4.4 Chloride (98 - 107 mmol/L) 100 Carbon Dioxide (22 - 30 mmol/L) 29 Anion Gap (5 - 16) 10 BUN (9 - 20 mg/dL) 47 H Creatinine (0.7 - 1.2 mg/dL) 1.4 H Estimated GFR (>60 ml/min) 48 L BUN/Creatinine Ratio (7 - 25 %) 33.6 H Coagulation PT (9.4 - 12.5 SEC) 22.9 H INR (0.90 - 1.17) 2.20 H Hematology CBC w Diff NO MAN DIFF REQ WBC (4.8 - 10.8 /CUMM) 10.3 RBC (4.70 - 6.10 /CUMM) 3.56 L Hgb (14.0 - 18.0 G/DL) 10.1 L Hct (42 - 52 %) 31.3 L MCV (80.0 - 94.0 FL) 88.0 MCH (27.0 - 31.0 PG) 28.4 RDW (11.5 - 14.5 %) 15.4 H Plt Count (130 - 400 /CUMM) 284 MPV (7.4 - 10.4 FL) 7.3 L Gran % (42.2 - 75.2 %) 75.6 H Lymphocytes % (20.5 - 51.1 %) 10.7 L Monocytes % (1.7 - 9.3 %) 12.6 H Eosinophils % (0 - 5 %) 0.5 Basophils % (0.0 - 2.0 %) 0.6 Absolute Granulocytes (1.4 - 6.5 /CUMM) 7.8 H Absolute Lymphocytes (1.2 - 3.4 /CUMM) 1.1 L Absolute Monocytes (0.10 - 0.60 /CUMM) 1.3 H Absolute Eosinophils (0.0 - 0.7 /CUMM) 0.1 Absolute Basophils (0.0 - 0.2 /CUMM) 0.1 PUBS MCHC (33.0 - 37.0 G/DL) 32.2 L Microbiology Date/Time Procedure - Status Source Growth 11/24 1040 Blood Culture - RECD BLOOD 11/24 1035 Blood Culture - RECD BLOOD Vital Signs & I&O Last 24 Hrs of Vitals and I&O: Vital Signs Date Time Temp Pulse Resp B/P Pulse O2 O2 Flow FiO2 Ox Delivery Rate 11/24 1217 Nasal 6.0L Cannula 11/24 1112 101.6 11/24 1112 144/60 11/24 1112 144/60 11/24 1104 93 Nasal 6.0L Cannula 11/24 0816 99.3 63 24 144/60 90 Nasal 6.0L Cannula 11/24 0100 60 92 11/24 0000 CPAP 11/23 2200 99.0 62 20 90/60 92 Nasal 5.0L Cannula 11/23 1911 90 Nasal 5.0L Cannula 11/23 1600 Nasal 5.0L Cannula 11/23 1522 98.4 63 22 100/52 92 Nasal 5.0L Cannula Intake & Output 11/24 1600 11/24 0800 11/24 0000 Intake Total 100 100 Output Total 400 300 Balance -300 -200 Intake, Oral 100 100 Number 1 Bowel Movements Output, Urine 400 300 Patient 223 lb Weight Impression/Plan Impression/Plan Impression/Plan: eneral: awake and alert, sitting up in bed eating breakfast in no acute distress Neck: supple, no JVD noted Cardiac: S1 and S2 heard, irregularly irregular Lungs: no respiratory distress or accessory muscle use, CTA bilaterally, no W/R/ R MSK: no LE edema, pedal pulses 2+ bilaterally Psych: appropriate and cooperative with exam IMPRESSION This is an elderly gentleman with history of significant smoking with atrial fibrillation/flutter on warfarin, morbid obesity with signs and symptoms suggestive of sleep apnea, pacemaker with pacemaker induced cardiomyopathy, diabetes, significant arthritis, came in with hypoxia chest tightness and dyspnea with aortic stenosis most likely related to fluid overload. His issues include * Significant hypoxemic respiratory failure related to diastolic heart disease and significant pulmonary hypertension from chronic obesity hypoventilation syndrome and COPD * Recently diagnosed large rectal cancer patient is refusing any kind of therapy wishes to be made comfort if he gets worse in the future. Has low-grade temperature now * Confusion on and off due to prob hypercarbia with sun downing. He has hypercarbia related to sleep associated hypoventilation with COPD. Supposed to be on BiPAP at home but he does not wish to use this regularly but he has been using oxygen. His hypersomnia and sleep associated hypoventilation did improve with BiPAP however. * Atrial fibrillation flutter on warfarin with hyperlipidemia and diabetes which seems to be moderately well-controlled endocrine is on board * No clinical evidence suggestive of significant pneumonia * Pulmonary hypertension most likely related to diastolic heart disease aortic stenosis and probable sleep apnea * Chronic lung disease with evidence suggestive of mild COPD with chronic bronchitis * Significant degenerative joint disease RECOMMENDATION Continue oxygen, attempt to use bipap during the day and at hs Avoid all narcotics Can use a low-dose olanzapine Panculture and Unasyn Attempt to use BiPAP at night if patient is willing to do that As needed nebulizer therapy Discussed with patient extensively about his decision to not pursue any therapy for his rectal cancer and he says he is already discussed with his family and he wishes no further therapy for rectal cancer. If he gets worse he wished to be made comfort RX neuropathic pain Continue his gabapentin Follow cultures, We will follow
[2016-11-24 16:00] VITALS: BP 148/70
[2016-11-24 22:00] VITALS: BP 110/60
--- NOTE | 2016-11-25 06:04 | PN- Housestaff ---
JOHN MIXON,KAELA 11/25/16 0604: Subjective Follow-up For: Pulmonary edema/effusion CHF exacerbation Acute hypoxic resp failure Tele-Events Since Last Visit: Aflutter with HR in 60's Subjective: Patient seen and examined at bedside. He is sleeping comfrotably on BiPAP. Offers no complaints when waken up. He is slightly lethargic but responsive to verbal stimuli. Reports feeling well with no f/c, headache, chest pain, palpitations, n/v/c/d, dizziness/lightheadedness. No events reported overnight. Review of Systems Constitutional: Reports: see HPI. Objective Last 24 Hrs of Vital Signs/I&O Vital Signs Date Time Temp Pulse Resp B/P Pulse O2 O2 Flow FiO2 Ox Delivery Rate 11/25 0807 91 BIPAP 55% 11/25 0806 61 91 11/25 0628 60 93 11/25 0342 61 94 11/25 0028 66 91 11/25 0000 91 BIPAP 55% 11/24 2220 64 88 11/24 2200 100.3 60 20 110/60 91 BIPAP 55% 11/24 1935 92 Nasal 6.0L Cannula 11/24 1630 96 BIPAP 45% 11/24 1620 60 97 11/24 1600 97.2 59 24 148/70 96 BIPAP 50% 11/24 1217 Nasal 6.0L Cannula 11/24 1211 99.7 11/24 1112 101.6 11/24 1112 144/60 11/24 1112 144/60 11/24 1104 93 Nasal 6.0L Cannula Intake & Output 11/25 1600 11/25 0800 11/25 0000 Intake Total 100 150 Output Total 100 Balance 100 50 Intake, Oral 100 150 Output, Urine 100 Patient 105.687 kg Weight Physical Exam General Appearance: Alert, Oriented X3, Cooperative, No Acute Distress Other Physical Findings: Cardiovascular: Normal S1, Normal S2 Lungs: Clear to Auscultation, Normal Air Movement Abdomen: No Masses, distended Extremities: No Edema Current Medications: Current Medications Sig/Elier Start time Last Medication Dose Route Stop Time Status Admin Acetaminophen 650 MG .STK-MED ONE 11/24 2158 DC PO 11/24 2159 Acetaminophen 1,000 MG Q6P PRN 11/24 1345 AC N/A 1 UNIT IV Acetaminophen 650 MG .STK-MED ONE 03/16 1013 DC PO 11/24 1014 Acetaminophen 650 MG Q6 PRN 11/20 0545 AC 11/24 PO 1112 Albuterol Sulfate 3 ML BID 11/20 1000 AC 11/25 INH 0801 Ampicillin Sodium/ 1,500 MG Q6 11/24 1200 AC 11/25 Sulbactam Sodium IV 0515 Sodium Chloride 100 ML Atorvastatin Calcium 20 MG 1700 11/20 1700 AC 11/24 PO 1736 Furosemide 40 MG BID 11/21 2200 DC 11/23 IV 2200 Gabapentin 200 MG TID 11/20 1000 AC 11/24 PO 2153 Insulin Aspart 0 TIDAC 11/20 0800 AC 11/23 SC 1135 Lisinopril 10 MG DAILY 11/20 1000 DC 11/23 PO 0857 Metoprolol Tartrate 6.25 MG BID 11/20 1000 AC 11/24 PO 2152 Oxycodone/ 1 TAB Q6P PRN 11/20 0930 DC 11/23 Acetaminophen PO 0119 Patient Medication 1 ED .STK-MED ONE 11/24 1416 FL Teaching ED 11/24 1417 Polyethylene Glycol 17 GM DAILY 11/21 1814 AC 11/23 PO 0858 Senna/Docusate Sodium 2 TAB DAILY 11/21 1815 AC 11/23 PO 0857 Tamsulosin HCl 0.4 MG DAILY 11/20 1000 AC 11/24 PO 1112 Tiotropium Bruno 1 PUF 1000 11/20 1000 AC 11/24 INH 1112 Warfarin Sodium 5 MG COUMADIN 1700 ONE 11/24 1700 DC 11/24 PO 11/24 1701 1736 Last 24 Hrs of Lab/Hunter Results Last 24 Hrs of Labs/Mics: Laboratory Tests 11/25/16 0630: Anion Gap 8, Estimated GFR 58 L, BUN/Creatinine Ratio 47.5 H, Magnesium 2.3, PT 31.9 H, INR 3.07 H, CBC w Diff NO MAN DIFF REQ, RBC 3.48 L, MCV 88.3, MCH 27.9, RDW 15.9 H, MPV 7.3 L, Gran % 75.5 H, Lymphocytes % 8.6 L, Monocytes % 14.7 H, Eosinophils % 0.5, Basophils % 0.7, Absolute Granulocytes 8.5 H, Absolute Lymphocytes 1.0 L, Absolute Monocytes 1.7 H, Absolute Eosinophils 0.1 , Absolute Basophils 0.1, PUBS MCHC 31.6 L 03/16/17 1055: pH 7.37, pCO2 52 H, pO2 79 L, HCO3 29 H, ABG O2 Sat (Measured) 95.0 L, P-50 (Temp Corrected) N, Carboxyhemoglobin 0.3 L, O2 Concentration % 7LPM, O2 Delivery Method NC, Phlebotomy Draw Site RIGHT BRACHIAL Microbiology 11/24 1227 LOWER RESP: Respiratory Culture - COLB 11/24 1227 LOWER RESP: Gram Stain - COLB 11/24 1040 BLOOD: Blood Culture - RECD 11/24 1035 BLOOD: Blood Culture - RECD Assessment/Plan Assessment: 86-year-old gentlemen with pmh of COPD, hypertension, dyslipidemia, diabetes mellitus, cardiomyopathy, aortic stenosis, atrial fibrillation on warfarin s/p atrioventricular node ablation with initial permanent pacemaker implantation with generator replacements, HFpEF, recent diagnosis of exophytic upper rectal cancer s/p elective colonoscopy (11/17/2016), presents with worsening shortness of breath 2/2 CHF exacerbation. * Dr. Neives and I had a family meeting with the patient's daughter. We discussed his prognosis given his extensive cardiopulmonary status and cancer. It was clarified that patient and the daughter would like to choose hospice care if he medically worsens from his current state. They would not want any intensive care or aggresive measures. 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 ABG (11/24) consistent with compensated resp acidosis (pH 7.37, pCO2 79, pO2 79, HCO3 29). * Oxygen support as needed to maintain O2 sat > 92% * TRC neb tx as needed * Plans as discussed below for CHF management * Pulm following, appreciate recs # HFpEF Repeat CXR (11/21) shows no improvement in pulmonary edema with [id number] bilateral pleural effusions. * Continue strict I's and O's, daily weights * Hold Lasix and lisinopril * Appreciate cardio recs # REY Patient's creatinine trending up as of 11/23 after being on Lasix 40mg BID IV for several days. * Avoid nephrotoxins * Check BEP daily, trend Cr - improved to 1.2 today # Aspiration pneumonia Patient has had a mild leukocytosis and fever on multiple occassions. Blood blood culture drawn on admission was positive in 1/2 bottles and grew coag negative and alpha strep, most likely due to contamination. Patient received 2 days of vancomycin which was discontinued as bcx shows coa negative which is most likely indicative of contamination. Most recent CXR shows a possibility of aspiration PNA. She was started on Unasyn as he spiked a fever up to 101.6. * Cont to monitor for signs of infection, vitals per protocl - patient is borderline feverish with a temp of 101.6F yest morning and then 100.3F last night * Check CBC daily, trend WBC - trending up to 11.3 * Follow blood culture ID & sensitivity * Cont IV Unasyn 1.5mg Q6 - day #2 * Follow swallow eval - regular diet with thin liquids # Atrial fibrillation * Cont tele monitoring * INR daily and dose warfarin accordingly * Appreciate cardio recs # BPH * Continue home med Flomax # Diabetes * Monitor fingersticks, diabetic diet, place on insulin sliding scale # Colorectal cancer Patient does not wish any further aggressive management of his rectal cancer. * Outpaitent GI followup # Chronic medical conditions * Continue home meds of Lopressor, lisinopril, statin for HTN/HLD * Coont home med gabapentin for neuropathy # Heart healthy diet # Mild pain pathway # DVT prophylaxis with Coumadin # DNR/DNI Problem List: 1. Aortic stenosis 2. Traumatic arthritis of right knee 3. CHF (congestive heart failure) 4. Acute respiratory failure with hypoxia 5. Diabetes 6. Tobacco abuse 7. Flash pulmonary edema Pain Ratin Pain Location: Head/neck Pain Goal: Remain pain free Pain Plan: Mild pathway, no narcotics Tomorrow's Labs & Rationales: CBC BEP INR DVT/Prophylaxis: pharmacological Consulting Request: Consulting Specialty: Cardiology MANDI WELCH MD 11/25/16 1123: Attending MD Review Statement Attending Statement Attending MD Statement: examined this patient, discuss w/resident/PA/PROP SAWYER, agreed w/resident/PA/PROP SAWYER, reviewed EMR data (avail), discussed with nursing, discussed with case mgmt, reviewed images Attending Assessment/Plan: Events overnight noted. Patient did well with dinner but after that went into acute hypoxemic respiratory failure, is now on high flow oxygen with BiPAP overnight and remains febrile to 101 despite IV Unasyn started for suspected aspiration pneumonitis. Andrea Nieves MD spoke to the patient's daughter Malika at length. Given patient's known explicit wishes we are not going to transfer him to the ICU, we are not going to start pressors and he is clearly DNR/DNI. We are going to give him antibiotics and BiPAP but if he doesn't improve, then we going to make him inpatient hospice as per his wishes. No Coumadin today for the elevated INR and watch his status closely.
[2016-11-25 07:51] LABS: ABSOLUTE BASOPHIL COUNT 0.1 /CUMM (0.0-0.2); ABSOLUTE EOSINOPHIL COUNT 0.1 /CUMM (0.0-0.7); ABSOLUTE GRANULOCYTE CT 8.5 /CUMM (1.4-6.5); ABSOLUTE MONOCYTE COUNT 1.7 /CUMM (0.10-0.60); BASOPHIL % 0.7 % (0.0-2.0); EOSINOPHIL % 0.5 % (0-5); GRANULOCYTE % 75.5 % (42.2-75.2); HEMATOCRIT 30.7 % (42-52); MEAN CORPUSCULAR HGB 27.9 PG (27.0-31.0); MEAN CORPUSCULAR HGB CONC 31.6 G/DL (33.0-37.0); MEAN CORPUSCULAR VOLUME 88.3 FL (80.0-94.0); MEAN PLATELET VOLUME 7.3 FL (7.4-10.4); PLATELET COUNT 308 /CUMM (130-400); RBC DISTRIBUTION WIDTH 15.9 % (11.5-14.5); RED BLOOD CELL CT 3.48 /CUMM (4.70-6.10); WHITE BLOOD CELL COUNT 11.3 /CUMM (4.8-10.8)
[2016-11-25 08:20] LABS: PT 31.9 SEC (9.4-12.5)
--- NOTE | 2016-11-25 10:46 | RADIOLOGY REPORT ---
EXAMINATION: XR PORTABLE CHEST CLINICAL INFORMATION: Aspiration pneumonia. COMPARISON: 11/24/2016 TECHNIQUE: Portable AP view of the chest was obtained. FINDINGS: Patient is slightly rotated to the left. Again noted is the large cardiac silhouette with cardiac pacing device is in place. Pulmonary vessels are engorged and indistinct. Interval worsening of consolidation within the right lung. No significant change in appearance of consolidation in the left lower lobe. Small pleural effusions are not appreciably changed. IMPRESSION: Cardiomegaly and pulmonary edema. The consolidation within each lung could represent edema and/or superimposed pneumonia. The consolidation within the right lung has worsened compared to 11/24/2016.
--- NOTE | 2016-11-25 13:29 | PN- Pulmonary ---
Subjective HPI/Critical Care Issues: Doing poorly In resp failure Less conscious Febrile History diff to obtain Objective Current Medications: Current Medications Sig/Elier Start time Last Medication Dose Route Stop Time Status Admin Acetaminophen 650 MG .STK-MED ONE 11/24 2158 DC PO 11/24 2159 Acetaminophen 1,000 MG Q6P PRN 11/24 1345 AC N/A 1 UNIT IV Acetaminophen 650 MG Q6 PRN 11/20 0545 AC 11/24 PO 1112 Albuterol Sulfate 3 ML BID 11/20 1000 AC 11/25 INH 0801 Ampicillin Sodium/ 1,500 MG Q6 11/24 1200 AC 11/25 Sulbactam Sodium IV 1241 Sodium Chloride 100 ML Atorvastatin Calcium 20 MG 1700 11/20 1700 AC 11/24 PO 1736 Furosemide 40 MG ONCE ONE 11/25 1330 UNVr IV 11/25 1331 Gabapentin 200 MG TID 11/20 1000 AC 11/24 PO 2153 Insulin Aspart 0 TIDAC 11/20 0800 AC 11/23 SC 1135 Metoprolol Tartrate 6.25 MG BID 11/20 1000 AC 11/24 PO 2152 Oxycodone/ 1 TAB Q6P PRN 11/20 0930 DC 11/23 Acetaminophen PO 0119 Patient Medication 1 ED .STK-MED ONE 11/24 1416 DC Teaching ED 11/24 1417 Polyethylene Glycol 17 GM DAILY 11/21 1814 AC 11/23 PO 0858 Senna/Docusate Sodium 2 TAB DAILY 11/21 1815 AC 11/23 PO 0857 Tamsulosin HCl 0.4 MG DAILY 11/20 1000 AC 11/24 PO 1112 Tiotropium Widener 1 PUF 1000 11/20 1000 AC 11/24 INH 1112 Warfarin Sodium 5 MG COUMADIN 1700 ONE 11/24 1700 DC 11/24 PO 11/24 1701 1736 Vital Signs & I&O Last 24 Hrs of Vitals and I&O: Vital Signs Date Time Temp Pulse Resp B/P Pulse O2 O2 Flow FiO2 Ox Delivery Rate 11/25 1140 62 92 11/25 1057 76 92 11/25 0807 91 BIPAP 55% 11/25 0806 61 91 11/25 0800 94 BIPAP 55% 11/25 0628 60 93 11/25 0342 61 94 11/25 0028 66 91 11/25 0000 91 BIPAP 55% 11/24 2220 64 88 11/24 2200 100.3 60 20 110/60 91 BIPAP 55% 11/24 1935 92 Nasal 6.0L Cannula 11/24 1630 96 BIPAP 45% 11/24 1620 60 97 11/24 1600 97.2 59 24 148/70 96 BIPAP 50% Intake & Output 11/25 1600 11/25 0800 11/25 0000 Intake Total 100 150 Output Total 100 Balance 100 50 Intake, Oral 100 150 Output, Urine 100 Patient 223 lb 233 lb Weight Impression/Plan Impression/Plan Impression/Plan: eneral: awake and alert, sitting up in bed eating breakfast in no acute distress Neck: supple, no JVD noted Cardiac: S1 and S2 heard, irregularly irregular Lungs: no respiratory distress or accessory muscle use, CTA bilaterally, no W/R/ R MSK: no LE edema, pedal pulses 2+ bilaterally Psych: appropriate and cooperative with exam IMPRESSION This is an elderly gentleman with history of significant smoking with atrial fibrillation/flutter on warfarin, morbid obesity with signs and symptoms suggestive of sleep apnea, pacemaker with pacemaker induced cardiomyopathy, diabetes, significant arthritis, came in with hypoxia chest tightness and dyspnea with aortic stenosis most likely related to fluid overload. His issues include * Significant hypoxemic and hypercarbic respiratory failure related to diastolic heart disease and significant pulmonary hypertension from chronic obesity hypoventilation syndrome and COPD. Pt may be developing aspiration pna aswell * Recently diagnosed large rectal cancer patient is refusing any kind of therapy wishes to be made comfort if he gets worse in the future. Has low-grade temperature now, pt may be translocating bacterial from the rectum * Confusion on and off due to prob hypercarbia with sun downing. He has hypercarbia related to sleep associated hypoventilation with COPD. * Atrial fibrillation flutter on warfarin with hyperlipidemia and diabetes which seems to be moderately well-controlled endocrine is on board * No clinical evidence suggestive of significant pneumonia * Pulmonary hypertension most likely related to diastolic heart disease aortic stenosis and probable sleep apnea * Chronic lung disease with evidence suggestive of mild COPD with chronic bronchitis * Significant degenerative joint disease RECOMMENDATION Unfortunately pt is getting worse despite max conservative measures DIscussed with Daughter Malika in detail Pts prior wishes and family's wises were to not go through any further agg measures Continue oxygen, attempt to use bipap during the day and at hs Avoid all narcotics Can use a low-dose olanzapine Cont Unasyn Use BiPAP as jose As needed nebulizer therapy If worse pt to go to regular floor with comfort measure with transition to hospice per pts prior and daughters wishes
[2016-11-25 16:11] VITALS: BP 150/60
--- NOTE | 2016-11-25 18:10 | PN- Cardiology ---
Subjective Subjective: Mr. Casanova became more short of breath with worsening CXR findings and decreased O2 saturations prompting the initiation of BiPAP. Objective Vital Signs and I&Os Vital Signs Date Time Temp Pulse Resp B/P Pulse O2 O2 Flow FiO2 Ox Delivery Rate 11/25 1611 98.0 62 30 150/60 94 BIPAP 55% 11/25 1600 64 93 11/25 1140 62 92 11/25 1057 76 92 11/25 0807 91 BIPAP 55% 11/25 0806 61 91 11/25 0800 94 BIPAP 55% 11/25 0628 60 93 11/25 0342 61 94 11/25 0028 66 91 11/25 0000 91 BIPAP 55% 11/24 2220 64 88 11/24 2200 100.3 60 20 110/60 91 BIPAP 55% 11/24 1935 92 Nasal 6.0L Cannula Intake & Output 11/25 1600 11/25 0800 11/25 0000 11/24 1600 11/24 0800 11/24 0000 Intake Total 200 100 150 400 100 100 Output Total 100 150 400 300 Balance 200 100 50 250 -300 -200 Intake, IV 100 Intake, Oral 100 100 150 400 100 100 Number 1 1 Bowel Movements Output, Urine 100 150 400 300 Patient 223 lb 233 lb 223 lb Weight Physical Exam: Well-developed, obese elderly male in mild respiratory distress with complaints. Vital signs: See above. Lungs: Bibasilar crackles. Heart: S1, S2 with grade 1-2/6 systolic murmur. Extremities: No edema. Assessment/Plan Assessment/Plan Mr. Casanova is an 86-y-o m w/ history of tob use, presumed COPD, obesity, suspected RAJAN, HTN, HLD, DM, LVH, CM, , AF on warfarin, s/p AVN ablation/ppm, and previous HFpEF who presented with complaints of progressive SOB s/p colonoscopy (11/17/2016) c/w an exophytic upper rectal cancer with bleeding w/o obstruction. Last echo performed 06/14/2016 revealed: LV at the UNL size, moderate concentric LVH, abnormal septal motion c/w pacemaker activation, no other obvious regional wall motion abnormalities, a normal LV EF estimated at >55%, mild RV dilatation, mild to moderate RA dilatation w/ ppm in Rt Ht, mild to moderate LA dilatation trace to mild MR, mild , mild TR, mild pulmonary HTN, a mildly dilated proximal Asc Ao, and a dilated IVC. Note that Mr. Casanova underwent a pharmacologic (Regadenoson) stress test on 02/20/2016 that revealed no nuclear evidence of ischemia. Impression: Acute diastolic heart failure likely secondary to moderate concentric left ventricular hypertrophy as result of his long-standing hypertension plus/minus pneumonia with worsening respiratory status over the past 24 hours after his diuretic had been held for worsening renal function and the suspicion of pneumonia on yesterday's (11/24/2016) CXR. Note worsening BUN and hyperkalemia, but improved creatinine. Recommendations: * Continue strict inputs/outputs and daily weights. * Increase IV furosemide to 60 mg twice daily and fluid restrict for today. * Repeat CXR in a.m. to check for improvement * Note that repeat echocardiogram revealed preserved left ventricular systolic function and left ventricular hypertrophy with presumed diastolic dysfunction, mild to moderate , etc. without any evidence of obvious valvular vegetations. * Continue DVT prophylaxis. * Note INR is supratherapeutic today (11/25/2016) at 3.07. This is likely secondary to the ampicillin, but follow-up LFTs. Hold warfarin for now and follow-up INR. Continue telemetry? Yes
[2016-11-25 23:30] VITALS: BP 130/58
--- NOTE | 2016-11-26 07:16 | PN- Housestaff ---
JOHN MIXON,KAELA 11/26/16 0715: Subjective Follow-up For: Pulmonary edema/effusion CHF exacerbation Acute hypoxic resp failure Tele-Events Since Last Visit: Afib, HR 60-69 with PVCs Subjective: Patient seen and examined at bedside. He is slightly lethargic and confused this morning. Disoriented to time and place. He c/o headache but no new complaints otherwise. Satting at 92% on BiPAPA.Denies any f/c, chest pain, dyspnea, palpitations, n/v/c/d. Review of Systems Constitutional: Reports: see HPI. Objective Last 24 Hrs of Vital Signs/I&O Vital Signs Date Time Temp Pulse Resp B/P Pulse O2 O2 Flow FiO2 Ox Delivery Rate 11/26 0745 97.2 68 24 152/60 92 BIPAP 11/26 0040 60 92 11/26 0000 93 BIPAP 60% 11/25 2330 98.3 59 24 130/58 95 BIPAP 11/25 2200 63 90 11/25 2143 60 132/50 11/25 1921 64 94 11/25 1920 94 BIPAP 55% 11/25 1611 98.0 62 30 150/60 94 BIPAP 55% 11/25 1600 93 BIPAP 50% 11/25 1600 64 93 11/25 1140 62 92 11/25 1057 76 92 Intake & Output 11/26 1600 11/26 0800 11/26 0000 Intake Total 250 280 Output Total 650 Balance 250 -370 Intake, IV 200 250 Intake, Oral 50 30 Number 1 0 Bowel Movements Output, Urine 650 Physical Exam General Appearance: Alert, Cooperative, Mild Distress Other Physical Findings: Cardiovascular: Normal S1, Normal S2 Lungs: Clear to Auscultation, Normal Air Movement Abdomen: No Masses, distended Extremities: No Edema Current Medications: Current Medications Sig/Elier Start time Last Medication Dose Route Stop Time Status Admin Acetaminophen 1,000 MG Q6P PRN 11/24 1345 AC 11/26 N/A 1 UNIT IV 0814 Acetaminophen 650 MG Q6 PRN 11/20 0545 AC 11/24 PO 1112 Albuterol Sulfate 3 ML BID 11/20 1000 AC 11/25 INH 1900 Ampicillin Sodium/ 1,500 MG Q6 11/24 1200 AC 11/26 Sulbactam Sodium IV 0629 Sodium Chloride 100 ML Atorvastatin Calcium 20 MG 1700 11/20 1700 AC 11/24 PO 1736 Calcium Gluconate 1 GM ONCE ONE 11/25 1345 DC 11/25 Sodium Chloride 100 ML IV 11/25 1444 1834 Furosemide 60 MG 7:30 AM, & 4:30 PM 11/26 1630 AC IV Furosemide 60 MG ONCE ONE 11/26 0830 AC IV 11/26 0831 Furosemide 40 MG ONCE ONE 11/25 2200 DC 11/25 IV 11/25 2201 2141 Furosemide 40 MG ONCE ONE 11/25 1545 DC 11/25 IV 11/25 1546 1831 Furosemide 40 MG ONCE ONE 11/25 1330 CAN IV 11/25 1331 Gabapentin 200 MG TID 11/20 1000 AC 11/24 PO 2153 Insulin Aspart 0 TIDAC 11/20 0800 AC 11/23 SC 1135 Metoprolol Tartrate 6.25 MG BID 11/20 1000 AC 11/25 PO 2143 Polyethylene Glycol 17 GM DAILY 11/21 1814 AC 11/23 PO 0858 Senna/Docusate Sodium 2 TAB DAILY 11/21 1815 AC 11/23 PO 0857 Sodium Polystyrene 60 ML ONCE ONE 11/25 1915 DC 11/25 Sulfonate AL 11/25 1916 2020 Sodium Polystyrene 60 ML ONCE ONE 11/25 1345 CAN Sulfonate PO 11/25 1346 Tamsulosin HCl 0.4 MG DAILY 11/20 1000 AC 11/24 PO 1112 Tiotropium [place] 1 PUF 1000 11/20 1000 AC 11/24 INH 1112 Last 24 Hrs of Lab/Hunter Results Last 24 Hrs of Labs/Mics: Laboratory Tests 11/26/16 0640: Anion Gap 9, Estimated GFR > 60, BUN/Creatinine Ratio 45.0 H, Magnesium 2.4 H, PT Pending, INR Pending, CBC w Diff Pending, WBC Pending, RBC Pending, Hgb Pending, Hct Pending, MCV Pending, MCH Pending, RDW Pending, Plt Count Pending, MPV Pending, PUBS MCHC Pending 11/25/16 1015: Virus Culture Pending Microbiology 11/25 1015 NASOPHARYN: Influenza Virus A & B Rapid Smear - COMP Assessment/Plan Assessment: 86-year-old gentlemen with pmh of COPD, hypertension, dyslipidemia, diabetes mellitus, cardiomyopathy, aortic stenosis, atrial fibrillation on warfarin s/p atrioventricular node ablation with initial permanent pacemaker implantation with generator replacements, HFpEF, recent diagnosis of exophytic upper rectal cancer s/p elective colonoscopy (11/17/2016), presents with worsening shortness of breath 2/2 CHF exacerbation. * Dr. Nieves and I had a family meeting with the patient's daughter. We discussed his prognosis given his extensive cardiopulmonary status and cancer. It was clarified that patient and the daughter would like to choose hospice care if he medically worsens from his current state. They would not want any intensive care or aggresive measures. 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 ABG (11/24) consistent with compensated resp acidosis (pH 7.37, pCO2 79, pO2 79, HCO3 29). * Oxygen support as needed to maintain O2 sat > 92% * TRC neb tx as needed * Plans as discussed below for CHF management * Pulm following, appreciate recs # HFpEF Repeat CXR (11/21) shows no improvement in pulmonary edema with [id number] bilateral pleural effusions. * Continue strict I's and O's, daily weights * Resume Lasix IV at increased dose of 60mg BID * Appreciate cardio recs # REY - Resolved Patient's creatinine trending up as of 11/23 after being on Lasix 40mg BID IV for several days. REY resolved after holding Lasix for a day. * Avoid nephrotoxins * Check BEP daily, trend Cr - improved to 1.0 today # Aspiration pneumonia Patient has had a mild leukocytosis and fever on multiple occassions. Blood blood culture drawn on admission was positive in 1/2 bottles and grew coag negative and alpha strep, most likely due to contamination. Patient received 2 days of vancomycin which was discontinued as bcx shows coa negative which is most likely indicative of contamination. Most recent CXR shows a possibility of aspiration PNA. She was started on Unasyn as he spiked a fever up to 101.6. * Cont to monitor for signs of infection, vitals per protocl - no fever in the past 24 hours * Check CBC daily, trend WBC - elevated to 12 * Follow blood/sputum culture ID & sensitivity * Cont IV Unasyn 1.5mg Q6 - day #3 * Follow swallow eval - [place] and puree # Atrial fibrillation * Cont tele monitoring * INR daily and dose warfarin accordingly, INR > 5 today, hold warfarin * Appreciate cardio recs # BPH * Continue home med Flomax # Diabetes * Monitor fingersticks, diabetic diet, place on insulin sliding scale # Colorectal cancer Patient does not wish any further aggressive management of his rectal cancer. * Outpaitent GI followup # Chronic medical conditions * Continue home meds of Lopressor, lisinopril, statin for HTN/HLD * Coont home med gabapentin for neuropathy # Heart healthy diet # Mild pain pathway # DVT prophylaxis with Coumadin # DNR/DNI Problem List: 1. Traumatic arthritis of right knee 2. CHF (congestive heart failure) 3. Acute respiratory failure with hypoxia 4. Diabetes 5. Tobacco abuse 6. Flash pulmonary edema 7. Aortic stenosis Pain Ratin Pain Location: Head Pain Goal: Remain pain free Pain Plan: Tylenol IV Tomorrow's Labs & Rationales: CBC INR BEP Consulting Request: Consulting Specialty: Cardiology YESENIA MIXON,RIVAS 11/26/16 1300: Attending MD Review Statement Attending Statement Attending MD Statement: examined this patient, discuss w/resident/PA/TACKING STITCH REMOVER, agreed w/resident/PA/TACKING STITCH REMOVER, discussed with family, reviewed EMR data (avail), discussed with nursing, discussed with case mgmt, reviewed images, amended to note Attending Assessment/Plan: Old male with past medical history significant for COPD and obstructive sleep apnea is being admitted on the floor for acute hypoxic respiratory failure due to aspiration pneumonia and CHF. He is currently being treated for aspiration pneumonia with IV Unasyn and is being diuresed with IV Lasix along with BiPAP. Patient was seen and examined on the bedside and has limited communication. The patient's family on the bedside. Patient was also recently diagnosed for cancer of the rectum and is not willing to pursue any further management for it. Patient is DNI/DNR with no ICU transfer or pressors. Patient remained stable with poor prognosis. Cardiology and pulmonary on board. We will continue to follow and monitor.
[2016-11-26 07:45] VITALS: BP 152/60
[2016-11-26 08:17] LABS: ABSOLUTE BASOPHIL COUNT 0.1 /CUMM (0.0-0.2); ABSOLUTE EOSINOPHIL COUNT 0 /CUMM (0.0-0.7); ABSOLUTE LYMPH COUNT 0.9 /CUMM (1.2-3.4); ABSOLUTE MONOCYTE COUNT 1.5 /CUMM (0.10-0.60); BASOPHIL % 0.5 % (0.0-2.0); EOSINOPHIL % 0.1 % (0-5); GRANULOCYTE % 80.3 % (42.2-75.2); HEMATOCRIT 33.4 % (42-52); MEAN CORPUSCULAR HGB 28.2 PG (27.0-31.0); MEAN CORPUSCULAR VOLUME 88.1 FL (80.0-94.0); MEAN PLATELET VOLUME 7.2 FL (7.4-10.4); PLATELET COUNT 346 /CUMM (130-400); RBC DISTRIBUTION WIDTH 15.4 % (11.5-14.5); RED BLOOD CELL CT 3.79 /CUMM (4.70-6.10); WHITE BLOOD CELL COUNT 12.5 /CUMM (4.8-10.8)
--- NOTE | 2016-11-26 11:51 | PN- Pulmonary ---
Subjective HPI/Critical Care Issues: pt seen and examined afebrile high flow o2 60% saturating 95% doing better able to speak family at bedside no new complaints Objective Current Medications: Current Medications Sig/Elier Start time Last Medication Dose Route Stop Time Status Admin Acetaminophen 1,000 MG Q6 11/26 1200 CAN N/A 1 UNIT IV Acetaminophen 1,000 MG Q6P PRN 11/24 1345 DC 11/26 N/A 1 UNIT IV 0814 Acetaminophen 650 MG Q6 PRN 11/20 0545 AC 11/24 PO 1112 Albuterol Sulfate 3 ML BID 11/20 1000 AC 11/26 INH 0929 Ampicillin Sodium/ 1,500 MG Q6 11/24 1200 AC 11/26 Sulbactam Sodium IV 0629 Sodium Chloride 100 ML Atorvastatin Calcium 20 MG 1700 11/20 1700 AC 11/24 PO 1736 Calcium Gluconate 1 GM ONCE ONE 11/25 1345 DC 11/25 Sodium Chloride 100 ML IV 11/25 1444 1834 Furosemide 60 MG 7:30 AM, & 4:30 PM 11/26 1630 AC IV Furosemide 60 MG ONCE ONE 11/26 0830 DC 11/26 IV 11/26 0831 0925 Furosemide 40 MG ONCE ONE 11/25 2200 DC 11/25 IV 11/25 2201 2141 Furosemide 40 MG ONCE ONE 11/25 1545 DC 11/25 IV 11/25 1546 1831 Furosemide 40 MG ONCE ONE 11/25 1330 CAN IV 11/25 1331 Gabapentin 200 MG TID 11/20 1000 AC 11/24 PO 2153 Insulin Aspart 0 TIDAC 11/20 0800 AC 11/23 SC 1135 Metoprolol Tartrate 6.25 MG BID 11/20 1000 AC 11/25 PO 2143 Polyethylene Glycol 17 GM DAILY 11/21 1814 AC 11/23 PO 0858 Senna/Docusate Sodium 2 TAB DAILY 11/21 1815 AC 11/23 PO 0857 Sodium Polystyrene 60 ML ONCE ONE 11/25 1915 DC 11/25 Sulfonate PA 11/25 1916 2020 Sodium Polystyrene 60 ML ONCE ONE 11/25 1345 CAN Sulfonate PO 11/25 1346 Tamsulosin HCl 0.4 MG DAILY 11/20 1000 AC 11/24 PO 1112 Tiotropium [place] 1 PUF 1000 11/20 1000 AC 11/24 INH 1112 Tramadol HCl 50 MG ONCE ONE 11/26 0845 DC PO 11/26 0846 Vital Signs & I&O Last 24 Hrs of Vitals and I&O: Vital Signs Date Time Temp Pulse Resp B/P Pulse O2 O2 Flow FiO2 Ox Delivery Rate 11/26 0947 95 BIPAP 60% 11/26 0946 61 96 11/26 0745 97.2 68 24 152/60 92 BIPAP 11/26 0040 60 92 11/26 0000 93 BIPAP 60% 11/25 2330 98.3 59 24 130/58 95 BIPAP 11/25 2200 63 90 11/25 2143 60 132/50 11/25 1921 64 94 11/25 1920 94 BIPAP 55% 11/25 1611 98.0 62 30 150/60 94 BIPAP 55% 11/25 1600 93 BIPAP 50% 11/25 1600 64 93 Intake & Output 11/26 1600 11/26 0800 11/26 0000 Intake Total 250 280 Output Total 650 Balance 250 -370 Intake, IV 200 250 Intake, Oral 50 30 Number 1 0 Bowel Movements Output, Urine 650 Exam Other Physical Findings: gen awake and alert heent high flow o2 cvs s1, s2, faint murmur lungs rare rhonchi abd soft bs+ ext without edema Results Last 24 Hrs of Lab Results: Laboratory Tests 11/26/16 0640: Anion Gap 9, Estimated GFR > 60, BUN/Creatinine Ratio 45.0 H, Magnesium 2.4 H, Total Bilirubin 1.0, Direct Bilirubin 0.7 H, AST 21, ALT 32, Alkaline Phosphatase 140 H, Total Protein 7.3, Albumin 2.9 L, PT 53.0 *H, INR 5.13 *H, CBC w Diff NO MAN DIFF REQ, RBC 3.79 L, MCV 88.1, MCH 28.2, RDW 15.4 H, MPV 7.2 L, Gran % 80.3 H, Lymphocytes % 7.2 L, Monocytes % 11.9 H, Eosinophils % 0.1, Basophils % 0.5, Absolute Granulocytes 10.0 H, Absolute Lymphocytes 0.9 L , Absolute Monocytes 1.5 H, Absolute Eosinophils 0, Absolute Basophils 0.1, PUBS MCHC 32.0 L Impression/Plan Impression/Plan Impression/Plan: Impression 86 year old man - acute diastolic chf - likely underlying copd - htn Plan - ins/outs, diuresis - f/u cardiology recommendations - reduce fio2 as tolerated to maintain o2 sat 88-92% - DVT prophylaxis at all times
--- NOTE | 2016-11-26 12:53 | RADIOLOGY REPORT ---
EXAMINATION: XR PORTABLE CHEST CLINICAL INFORMATION: 89 diuresis. Aspiration pneumonia appears COMPARISON: None TECHNIQUE: Portable AP view of the chest was obtained. FINDINGS: There is cardiomegaly diffuse pulmonary edema worse on the right side. There are 2 pacemaker overlying the right and left anterior chest wall. No gross bony abnormality. IMPRESSION: Cardiomegaly with pulmonary edema. The pulmonary edema appears worse on the right side. No change from 11/25/2016.
[2016-11-26 16:07] VITALS: BP 110/60
--- NOTE | 2016-11-26 17:02 | PN- Cardiology ---
Subjective Subjective: * Patient is confused. No discernable complaints. * paced rhythm with underlying atrial fibrillation * INR elevated to over 5 * WBC increased to 12.5 * sodium elevated to 149 Objective Vital Signs and I&Os Vital Signs Date Time Temp Pulse Resp B/P Pulse O2 O2 Flow FiO2 Ox Delivery Rate 11/26 1607 97.4 66 23 110/60 92 11/26 1448 68 92 11/26 1422 92 Non 100% ReBreather 11/26 0947 95 BIPAP 60% 11/26 0946 61 96 11/26 0800 92 BIPAP 60% 11/26 0745 97.2 68 24 152/60 92 BIPAP 11/26 0040 60 92 11/26 0000 93 BIPAP 60% 11/25 2330 98.3 59 24 130/58 95 BIPAP 11/25 2200 63 90 11/25 2143 60 132/50 11/25 1921 64 94 11/25 1920 94 BIPAP 55% Intake & Output 11/26 1600 11/26 0800 11/26 0000 11/25 1600 11/25 0800 11/25 0000 Intake Total 600 250 280 200 100 150 Output Total 700 650 100 Balance -100 250 -370 200 100 50 Intake, IV 200 250 100 Intake, Oral 600 50 30 100 100 150 Number 1 0 Bowel Movements Output, Urine 700 650 100 Patient 223 lb 233 lb Weight Physical Exam: General: WD/obese male in NAD; on BIPAP Heart: RRR with 2/6 systolic murmur Lungs: clear anteriorly bilaterally Extremities: no edema Assessment/Plan Assessment/Plan * Hold coumadin due to highly elevated INR in the setting of antibiotic use. Check INR again on Monday. * Continue to fluid restrict and give Lasix for one more day. Note increasing sodium. Follow this level along with his BUN, creatinine and potassium. * Repeat a chest X-ray tomorrow. Continue telemetry? Yes
[2016-11-27 00:06] VITALS: BP 138/57
[2016-11-27 07:50] VITALS: BP 134/60
[2016-11-27 08:07] LABS: ABSOLUTE BASOPHIL COUNT 0 /CUMM (0.0-0.2); ABSOLUTE EOSINOPHIL COUNT 0.2 /CUMM (0.0-0.7); ABSOLUTE GRANULOCYTE CT 9.2 /CUMM (1.4-6.5); ABSOLUTE LYMPH COUNT 0.9 /CUMM (1.2-3.4); ABSOLUTE MONOCYTE COUNT 1.1 /CUMM (0.10-0.60); BASOPHIL % 0.4 % (0.0-2.0); EOSINOPHIL % 1.6 % (0-5); GRANULOCYTE % 80.1 % (42.2-75.2); HEMATOCRIT 31.6 % (42-52); MEAN CORPUSCULAR HGB CONC 32.2 G/DL (33.0-37.0); MEAN CORPUSCULAR VOLUME 86.9 FL (80.0-94.0); MEAN PLATELET VOLUME 7.4 FL (7.4-10.4); PLATELET COUNT 356 /CUMM (130-400); RBC DISTRIBUTION WIDTH 15.5 % (11.5-14.5); RED BLOOD CELL CT 3.63 /CUMM (4.70-6.10); WHITE BLOOD CELL COUNT 11.5 /CUMM (4.8-10.8)
--- NOTE | 2016-11-27 08:22 | PN- Housestaff ---
SATINDERNAZIA 11/27/16 0822: Subjective Follow-up For: Pulmonary edema/effusion Supratherapeutic INR CHF exacerbation Acute hypoxic respiratory failure Complaints: Patient does not want to have BIPAP Tele-Events Since Last Visit: A. fib 60-64 bpm no overnight events Subjective: Reviewed the patient lying on the bed not in acute distress. The patient has have flow oxygen through NASAL cannula. He has a sitter by bedside as he has been trying to remove the BiPAP machine. He has been expressing a wish is to be taken off BiPAP but this morning the patient is communicating with only headshaking. Review of Systems Constitutional: Denies: chills, fever. Cardiovascular: Denies: chest pain, palpitations. Respiratory: Denies: cough, short of breath. Gastrointestinal: Denies: abdominal pain, nausea, vomiting. Genitourinary: Denies: no symptoms. Musculoskeletal: Denies: no symptoms. Comments: All other systems reviewed and are negative Objective Last 24 Hrs of Vital Signs/I&O Vital Signs Date Time Temp Pulse Resp B/P Pulse O2 O2 Flow FiO2 Ox Delivery Rate 11/27 0927 94 Nasal 80% Cannula 11/27 0836 BIPAP 60% 11/27 0820 60 92 11/27 0750 97.8 60 28 134/60 90 BIPAP 11/27 0616 62 92 11/27 0324 61 92 11/27 0039 62 91 11/27 0006 98.2 62 26 138/57 94 11/27 0000 94 BIPAP 60% 11/26 2215 60 90 11/26 1856 93 BIPAP 65% 11/26 1700 60 93 11/26 1607 97.4 66 23 110/60 92 11/26 1600 BIPAP 11/26 1448 68 92 11/26 1422 92 Non 100% ReBreather 11/26 0947 95 BIPAP 60% 11/26 0946 61 96 Intake & Output 11/27 1600 11/27 0800 11/27 0000 Intake Total 360 250 Output Total 1800 1250 Balance -1440 -1000 Intake, IV 240 250 Intake, Oral 120 0 Output, Urine 1800 1250 Patient 223 lb Weight Physical Exam General Appearance: Alert, Mild Distress Skin: No Rashes HEENT: Atraumatic, Mucous Membr. moist/pink Neck: Supple Cardiovascular: Normal S1, Normal S2, 2/6 systolic murmur Lungs: Transmitted breath sounds bilaterally Abdomen: Normal Bowel Sounds, Soft, No Tenderness Neurological: Normal Speech, Normal Tone Extremities: No Clubbing, No Cyanosis, No Edema Current Medications: Current Medications Sig/Elier Start time Last Medication Dose Route Stop Time Status Admin Acetaminophen 1,000 MG ONCE ONE 11/26 2129 DC 11/26 N/A 1 UNIT IV 11/27 2143 2141 Acetaminophen 650 MG Q6 PRN 11/20 0545 AC 11/24 PO 1112 Albuterol Sulfate 3 ML BID 11/20 1000 AC 11/27 INH 0901 Ampicillin Sodium/ 1,500 MG Q6 11/24 1200 AC 11/27 Sulbactam Sodium IV 0539 Sodium Chloride 100 ML Atorvastatin Calcium 20 MG 1700 11/20 1700 AC 11/24 PO 1736 Furosemide 60 MG 7:30 AM, & 4:30 PM 11/26 1630 AC 11/27 IV 0815 Gabapentin 200 MG TID 11/20 1000 AC 11/24 PO 2153 Insulin Aspart 0 TIDAC 11/20 0800 AC 11/23 SC 1135 Metoprolol Tartrate 6.25 MG BID 11/20 1000 AC 11/25 PO 2143 Polyethylene Glycol 17 GM DAILY 11/21 1814 AC 11/23 PO 0858 Senna/Docusate Sodium 2 TAB DAILY 11/21 1815 AC 11/23 PO 0857 Tamsulosin HCl 0.4 MG DAILY 11/20 1000 AC 11/24 PO 1112 Tiotropium [place] 1 PUF 1000 11/20 1000 AC 11/24 INH 1112 Last 24 Hrs of Lab/Hunter Results Last 24 Hrs of Labs/Mics: Laboratory Tests 11/27/16 0630: Anion Gap 9, Estimated GFR > 60, BUN/Creatinine Ratio 45.0 H, Magnesium 2.4 H, PT 77.0 *H, INR 7.48 *H, CBC w Diff NO MAN DIFF REQ, RBC 3.63 L, MCV 86.9, MCH 28.0, RDW 15.5 H, MPV 7.4, Gran % 80.1 H, Lymphocytes % 8.0 L, Monocytes % 9.9 H, Eosinophils % 1.6, Basophils % 0.4, Absolute Granulocytes 9.2 H, Absolute Lymphocytes 0.9 L, Absolute Monocytes 1.1 H, Absolute Eosinophils 0.2 , Absolute Basophils 0, PUBS MCHC 32.2 L Assessment/Plan Assessment: 86-year-old gentlemen with pmh of COPD, hypertension, dyslipidemia, diabetes mellitus, cardiomyopathy, aortic stenosis, atrial fibrillation on warfarin s/p atrioventricular node ablation with initial permanent pacemaker implantation with generator replacements, HFpEF, recent diagnosis of exophytic upper rectal cancer s/p elective colonoscopy (11/17/2016), presents with worsening shortness of breath 2/2 CHF exacerbation. * Dr. Nieves had a fa,aki meeting November 25 with the patient's daughter. Discussed his prognosis given his extensive cardiopulmonary status and cancer. It was clarified that patient and the daughter would like to choose hospice care if he medically worsens from his current state. They would not want any intensive care or aggresive measures. 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 ABG (11/24) consistent with compensated resp acidosis (pH 7.37, pCO2 79, pO2 79, HCO3 29). * Oxygen support as needed to maintain O2 sat > 92% * TRC neb tx as needed * Plans as discussed below for CHF management * Pulm following, appreciate recs # HFpEF Repeat CXR (11/21) Cardiomegaly with pulmonary edema. The pulmonary edema appears worse on the right side. No change from 11/25/2016. * Continue strict I's and O's, daily weights * Patient is on daily dosing of Lasix as needed * She is now developing hyponatremia sodium today 152, needs free fluid * Appreciate cardio recs # REY - Resolved Patient's creatinine trending up as of 11/23 after being on Lasix 40mg BID IV for several days. REY resolved after holding Lasix for a day. * Avoid nephrotoxins * Check BEP daily, trend Cr - improved to 1.0 yesterday and remains the same today # Aspiration pneumonia Patient has had a mild leukocytosis and fever on multiple occassions. Blood blood culture drawn on admission was positive in 1/2 bottles and grew coag negative and alpha strep, most likely due to contamination. Patient received 2 days of vancomycin which was discontinued as bcx shows coag negative which is most likely indicative of contamination. Most recent CXR shows a possibility of aspiration PNA. She was started on Unasyn as he spiked a fever up to 101.6. * Cont to monitor for signs of infection, vitals per protocl - no fever in the past 24 hours * Check CBC daily, trend WBC - elevated to 12 * Follow blood/sputum culture ID & sensitivity * Cont IV Unasyn 1.5mg Q6 - day #4 * Aspiration precautions # Atrial fibrillation * Cont tele monitoring * INR daily and dose warfarin accordingly, INR > 7.48 today, going up, hold warfarin * Appreciate cardio recs * Continue to monitor INR repeat INRs tomorrow # BPH * Continue home med Flomax # Diabetes * Monitor fingersticks, diabetic diet, place on insulin sliding scale # Colorectal cancer Patient does not wish any further aggressive management of his rectal cancer. * Outpaitent GI followup # Chronic medical conditions * Continue home meds of Lopressor, lisinopril, statin for HTN/HLD * Cont home med gabapentin for neuropathy # Heart healthy diet # Mild pain pathway # DVT prophylaxis with Coumadin/on hold due to supratherapeutic # DNR/DNI Problem List: 1. Diabetes 2. Acute respiratory failure with hypoxia 3. Aspiration pneumonia Pain Ratin Pain Location: None Pain Goal: Remain pain free Pain Plan: Tylenol PRN no opiates Tomorrow's Labs & Rationales: INR DVT/Prophylaxis: pharmacological Consulting Request: Consulting Specialty: Cardiology YESENIA MIXON,[facility] 11/27/16 1242: Attending MD Review Statement Attending Statement Attending MD Statement: examined this patient, discuss w/resident/PA/PROCEDURE TECH, agreed w/resident/PA/PROCEDURE TECH, discussed with family, reviewed EMR data (avail), discussed with nursing, discussed with case mgmt, reviewed images, amended to note Attending Assessment/Plan: Old male with past medical history significant for COPD and obstructive sleep apnea is being admitted on the floor for acute hypoxic respiratory failure due to aspiration pneumonia and CHF. He is currently being treated for aspiration pneumonia with IV Unasyn and is being diuresed with IV Lasix along with BiPAP. Patient was seen and examined on the bedside and is somnolent. At times he gets agitated and pulls out his IVs for which a sitter is sitting beside him. The patient's family on the bedside. Patient was also recently diagnosed for cancer of the rectum and is not willing to pursue any further management for it. Patient is DNI/DNR with no ICU transfer or pressors. Patient remained stable with poor prognosis. Cardiology and pulmonary on board. Case discussed in detail with the patient's family who still wants to continue with the BiPAP and other management.
--- NOTE | 2016-11-27 10:15 | RADIOLOGY REPORT ---
EXAMINATION: XR PORTABLE CHEST CLINICAL INFORMATION: Pulmonary edema status post diuresis. COMPARISON: Recent priors. TECHNIQUE: Portable AP 70 degrees erect view of the chest was obtained. FINDINGS: There is stable appearance of extensive bilateral airspace opacity worse on the right. The appearance is consistent with pulmonary edema. Diffuse inflammatory process is also possible. Bilateral transvenous pacemakers remain in place. Mild cardiac enlargement is stable. IMPRESSION: Stable appearance of extensive bilateral airspace opacity worse on the right.
--- NOTE | 2016-11-27 10:39 | PN- Pulmonary ---
Subjective HPI/Critical Care Issues: pt seen and examined on 80% high flow o2 saturating 91%, intermittently removes nasal prongs awake but lethargic no other events low grade temperature Objective Current Medications: Current Medications Sig/Elier Start time Last Medication Dose Route Stop Time Status Admin Acetaminophen 1,000 MG ONCE ONE 11/26 2130 DC 11/26 N/A 1 UNIT IV 11/26 2144 2141 Acetaminophen 650 MG Q6 PRN 11/20 0545 AC 11/24 PO 1112 Albuterol Sulfate 3 ML BID 11/20 1000 AC 11/27 INH 0901 Ampicillin Sodium/ 1,500 MG Q6 11/24 1200 AC 11/27 Sulbactam Sodium IV 0539 Sodium Chloride 100 ML Atorvastatin Calcium 20 MG 1700 11/20 1700 AC 11/24 PO 1736 Furosemide 60 MG 7:30 AM, & 4:30 PM 11/26 1630 AC 11/27 IV 0815 Gabapentin 200 MG TID 11/20 1000 AC 11/24 PO 2153 Insulin Aspart 0 TIDAC 11/20 0800 AC 11/23 SC 1135 Metoprolol Tartrate 6.25 MG BID 11/20 1000 AC 11/25 PO 2143 Polyethylene Glycol 17 GM DAILY 11/21 1814 AC 11/23 PO 0858 Senna/Docusate Sodium 2 TAB DAILY 11/21 1815 AC 11/23 PO 0857 Tamsulosin HCl 0.4 MG DAILY 11/20 1000 AC 11/24 PO 1112 Tiotropium [place] 1 PUF 1000 11/20 1000 AC 11/24 INH 1112 Vital Signs & I&O Last 24 Hrs of Vitals and I&O: Vital Signs Date Time Temp Pulse Resp B/P Pulse O2 O2 Flow FiO2 Ox Delivery Rate 11/27 0927 94 Nasal 80% Cannula 11/27 0836 BIPAP 60% 11/27 0820 60 92 11/27 0750 97.8 60 28 134/60 90 BIPAP 11/27 0616 62 92 11/27 0324 61 92 11/27 0039 62 91 11/27 0006 98.2 62 26 138/57 94 11/27 0000 94 BIPAP 60% 11/26 2215 60 90 11/26 1856 93 BIPAP 65% 11/26 1700 60 93 11/26 1607 97.4 66 23 110/60 92 11/26 1600 BIPAP 11/26 1448 68 92 11/26 1422 92 Non 100% ReBreather Intake & Output 11/27 1600 11/27 0800 11/27 0000 Intake Total 360 250 Output Total 1800 1250 Balance -1440 -1000 Intake, IV 240 250 Intake, Oral 120 0 Output, Urine 1800 1250 Patient 223 lb Weight Exam Other Physical Findings: gen awake and alert heent high flow o2 cvs s1, s2, faint murmur lungs rare rhonchi abd soft bs+ ext without edema Results Last 24 Hrs of Lab Results: Laboratory Tests 11/27/16 0630: Anion Gap 9, Estimated GFR > 60, BUN/Creatinine Ratio 45.0 H, Magnesium 2.4 H, PT 77.0 *H, INR 7.48 *H, CBC w Diff NO MAN DIFF REQ, RBC 3.63 L, MCV 86.9, MCH 28.0, RDW 15.5 H, MPV 7.4, Gran % 80.1 H, Lymphocytes % 8.0 L, Monocytes % 9.9 H, Eosinophils % 1.6, Basophils % 0.4, Absolute Granulocytes 9.2 H, Absolute Lymphocytes 0.9 L, Absolute Monocytes 1.1 H, Absolute Eosinophils 0.2 , Absolute Basophils 0, PUBS MCHC 32.2 L Impression/Plan Impression/Plan Impression/Plan: Impression 86 year old man - acute diastolic chf - likely underlying copd - htn Plan - ins/outs, diuresis - f/u cardiology recommendations - reduce fio2 as tolerated to maintain o2 sat 88-92% - DVT prophylaxis at all times
--- NOTE | 2016-11-27 16:29 | PN- Cardiology ---
Subjective Subjective: * Patient is not responsive to verbal stimuli. * paced rhythm with underlying atrial fibrillation * INR elevated to over 7.48 * WBC increased to 11.5 * sodium elevated to 152 Objective Vital Signs and I&Os Vital Signs Date Time Temp Pulse Resp B/P Pulse O2 O2 Flow FiO2 Ox Delivery Rate 11/27 1454 60 92 11/27 1046 60 140/70 11/27 1046 60 140/70 11/27 0927 94 Nasal 80% Cannula 11/27 0836 BIPAP 60% 11/27 0820 60 92 11/27 0750 97.8 60 28 134/60 90 BIPAP 11/27 0616 62 92 11/27 0324 61 92 11/27 0039 62 91 11/27 0006 98.2 62 26 138/57 94 11/27 0000 94 BIPAP 60% 11/26 2215 60 90 11/26 1856 93 BIPAP 65% 11/26 1700 60 93 Intake & Output 11/27 1600 11/27 0800 11/27 0000 11/26 1600 11/26 0800 11/26 0000 Intake Total 150 360 250 600 250 280 Output Total 900 1800 1250 700 650 Balance -750 -1440 -1000 -100 250 -370 Intake, IV 100 240 250 200 250 Intake, Oral 50 120 0 600 50 30 Number 1 0 Bowel Movements Output, Urine 900 1800 1250 700 650 Patient 223 lb Weight Physical Exam: General: WD/obese male in NAD; on BIPAP Heart: RRR with 2/6 systolic murmur Lungs: clear anteriorly bilaterally Extremities: no edema Assessment/Plan Assessment/Plan * Hold coumadin due to highly elevated INR in the setting of antibiotic use. Check LFT's and give 5mg of vitamin K. * Pulmonary edema continues to be noted on patient's chest X-ray. Continue to fluid restrict and give Lasix for another day. Increasing sodium is noted. Follow this level along with his BUN, creatinine and potassium. * Patient is not responding at the present time. Check TSH and free T4 and obtain a stat ABG. Continue telemetry? Yes
[2016-11-27 17:17] VITALS: BP 96/50
--- NOTE | 2016-11-27 18:22 | CT SCAN REPORT ---
EXAMINATION: CT HEAD WITHOUT CONTRAST CLINICAL INFORMATION: Unresponsiveness elevated INR COMPARISON: 06/10/2016 TECHNIQUE: Contiguous axial imaging was performed from the skull base to vertex without intravenous administration of contrast. DLP: 672 mGy-cm FINDINGS: There is no evidence of acute intracranial hemorrhage or territorial infarction. No abnormal mass effect or midline shift is seen. [place] to white matter differentiation is well preserved. No extra-axial fluid collections are identified. The ventricles are normal in size. Symmetrical white matter changes most consistent with terminal supply white matter chronic lacunar ischemic/infarct involving the feliciano radiata and centrum semiovale. The osseous structures and soft tissues are normal. The mastoid air cells and visualized portions of the paranasal sinuses are well aerated. IMPRESSION: No acute intracranial pathology. Limited exam due to motion degradation. No hemorrhage.
--- NOTE | 2016-11-27 19:10 | Event Note ---
Event Note Event Note: This is an 86 years old gentleman with past medical history significant for congestive heart failure status post pacemaker, aortic stenosis, cardiomyopathy, atrial fibrillation on Coumadin and COPD who presented one week ago with his progressive shortness of breath. Patient initially received aggressive diuresis but we withheld Lasix for a couple of days after developing acute kidney injury. Renal function improved and currently is on Lasix 60 mg IV twice a day. Chest x-ray today showed worsening of bilateral airspace opacity on the right. I spoke with the family extensively who has been in contact with the primary care team about goals of care. This patient has newly diagnosed rectal cancer for which he has decided not to pursue active treatment. The patient does not want any invasive procedures or anything making him uncomfortable and is even resistant to BiPAP. The of the patient was at bedside today and asked clarifying questions about comfort measures called and hospice. As the family they have not yet made a decision on how they want to progress with management but one thing that came out very clearly is that they don't want escalation of care to have another wishes of the patient while they decide if they will go for comfort measures or hospice. Patient will continue with treatment as it is but there is no escalation of care , transfer to ICU or intubation in case the patient deteriorates.
[2016-11-27 23:00] VITALS: BP 136/58
--- NOTE | 2016-11-28 06:18 | PN- Housestaff ---
JOHN MIXON,KAELA 11/28/16 0617: Subjective Follow-up For: Pulmonary edema/effusion Supratherapeutic INR CHF exacerbation Acute hypoxic respiratory failur Tele-Events Since Last Visit: Aflutter Subjective: Patient seen and examined at bedside. He is very lethargic and barely responsive. He is unable to stay awake to eat and communicate. Discussed and confirmed with the family about their final decision to pursue hospice. They were informed about the need for fluid resusccitation given his volume depletion and electrolyte disturbances (i.e. hypernatremia). They were informed that giving him fluid would most likely worsen his cardiopulmonary state and thus respiratory status. The family, including daughters, feel that the patient is already suffering at this point and any further measures (i.e. fluid resuscitation) would make him suffer even more. They are certain that this would be against the patient's wish. Review of Systems Constitutional: Reports: see HPI. Objective Last 24 Hrs of Vital Signs/I&O Vital Signs Date Time Temp Pulse Resp B/P Pulse O2 O2 Flow FiO2 Ox Delivery Rate 11/28 0803 90 Nasal 95% Cannula 11/28 0800 90 Nasal 95% Cannula 11/28 0700 98.1 61 24 140/50 87 Nasal Cannula 11/28 0446 91 Nasal 95% Cannula 11/28 0027 60 90 11/28 0000 90 Nasal 95% Cannula 11/27 2300 98.8 62 26 136/58 90 Nasal 95% Cannula 11/27 2124 90 Nasal 95% Cannula 11/27 1908 90 Nasal 95% Cannula 11/27 1815 90 Nasal 95% Cannula 11/27 1800 90 Non 100% ReBreather 11/27 1717 99.7 62 26 96/50 97 11/27 1700 90 96 11/27 1600 97 BIPAP 100% 11/27 1454 60 92 Intake & Output 11/28 1600 11/28 0800 11/28 0000 Intake Total 150 0 Output Total 300 800 Balance -150 -800 Intake, IV 150 0 Intake, Oral 0 0 Number 0 Bowel Movements Output, Urine 300 800 Physical Exam General Appearance: Mild Distress, Lethargic, Confused Other Physical Findings: Cardiovascular: Normal S1, Normal S2 Lungs: Clear to Auscultation, Normal Air Movement Abdomen: No Masses, distended Extremities: No Edema Current Medications: Current Medications Sig/Elier Start time Last Medication Dose Route Stop Time Status Admin Acetaminophen 650 MG Q6 PRN 11/20 0545 AC 11/24 PO 1112 Albuterol Sulfate 3 ML BID 11/20 1000 AC 11/28 INH 0800 Ampicillin Sodium/ 1,500 MG Q6 11/24 1200 DC 11/28 Sulbactam Sodium IV 0532 Sodium Chloride 100 ML Atorvastatin Calcium 20 MG 1700 11/20 1700 AC 11/24 PO 1736 Atropine Sulfate 1 GTT Q4 HRS NEEDED PRN 11/28 1015 AC SL Furosemide 60 MG 7:30 AM, & 4:30 PM 11/26 1630 DC 11/28 IV 0820 Gabapentin 200 MG TID 11/20 1000 AC 11/27 PO 1046 Insulin Aspart 0 TIDAC 11/20 0800 AC 11/27 SC 1304 Lorazepam 0.5 MG Q4P PRN 11/28 1015 AC IV Metoprolol Tartrate 6.25 MG BID 11/20 1000 AC 11/27 PO 1046 Morphine Sulfate 2 MG Q2P PRN 11/28 1130 AC IV Morphine Sulfate 4 MG Q2P PRN 11/28 1015 DC 11/28 IV 1013 Phytonadione 5 MG ONCE ONE 11/27 1830 DC 11/27 SC 11/27 1831 1939 Phytonadione 5 MG ONCE ONE 11/27 1645 CAN PO 11/27 1646 Polyethylene Glycol 17 GM DAILY 11/21 1814 AC 11/27 PO 1046 Scopolamine HBr 1 PAT Q72H PRN 11/28 1015 AC TOP Senna/Docusate Sodium 2 TAB DAILY 11/21 1815 AC 11/27 PO 1047 Tamsulosin HCl 0.4 MG DAILY 11/20 1000 AC 11/27 PO 1046 Tiotropium [place] 1 PUF 1000 11/20 1000 DC 11/24 INH 1112 Last 24 Hrs of Lab/[place]unter Results Last 24 Hrs of Labs/Mics: Laboratory Tests 11/28/16 0730: Anion Gap 11, Estimated GFR 58 L, BUN/Creatinine Ratio 50.0 H, PT 81.3 *H, INR 7.90 *H, CBC w Diff NO MAN DIFF REQ, RBC 3.65 L, MCV 87.3, MCH 27.9, RDW 16.0 H, MPV 7.6, Gran % 80.1 H, Lymphocytes % 8.9 L, Monocytes % 9.7 H, Eosinophils % 0.9, Basophils % 0.4, Absolute Granulocytes 9.7 H, Absolute Lymphocytes 1.1 L, Absolute Monocytes 1.2 H, Absolute Eosinophils 0.1, Absolute Basophils 0, PUBS MCHC 31.9 L 11/27/16 1700: pH 7.46 H, pCO2 49 H, pO2 117 H, HCO3 37 H, ABG O2 Sat (Measured) 97.0, Carboxyhemoglobin 0.3 L, O2 Concentration % 100, Respiration Rate 18, O2 Delivery Method BIPAP, Vent Mode ST, Expiratory Pressure 6, Inspiratory Pressure 18, Phlebotomy Draw Site LEFT RADIAL 11/27/16 1643: Total Bilirubin 1.1, Direct Bilirubin 0.5 H, AST 20, ALT 33, Alkaline Phosphatase 130 H, Total Protein 7.2, Albumin 2.8 L, TSH 1.760, Free T4 1.38 11/27/16 1634: Total Bilirubin Cancelled, Direct Bilirubin Cancelled, AST Cancelled, ALT Cancelled, Alkaline Phosphatase Cancelled, Total Protein Cancelled, Albumin Cancelled Assessment/Plan Assessment: 86-year-old gentlemen with pmh of COPD, hypertension, dyslipidemia, diabetes mellitus, cardiomyopathy, aortic stenosis, atrial fibrillation on warfarin s/p atrioventricular node ablation with initial permanent pacemaker implantation with generator replacements, HFpEF, recent diagnosis of exophytic upper rectal cancer s/p elective colonoscopy (11/17/2016), presents with worsening shortness of breath 2/2 CHF exacerbation. 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 ABG (11/24) consistent with compensated resp acidosis (pH 7.37, pCO2 79, pO2 79, HCO3 29). * Patient's mental/resp status deterorating despiste IV diuresis * Per family decision, we will stop the treatment and pursue hospice. * Stop IV meds # HFpEF Repeat CXR (11/21) Cardiomegaly with pulmonary edema. The pulmonary edema appears worse on the right side. No change from 11/25/2016. * Discontinue Lasix * Appreciate cardio recs # REY - Resolved Patient's creatinine trending up as of 11/23 after being on Lasix 40mg BID IV for several days. REY resolved after holding Lasix for a day. * Avoid nephrotoxins * Stop checking labs # Aspiration pneumonia Patient has had a mild leukocytosis and fever on multiple occassions. Blood blood culture drawn on admission was positive in 1/2 bottles and grew coag negative and alpha strep, most likely due to contamination. Patient received 2 days of vancomycin which was discontinued as bcx shows coag negative which is most likely indicative of contamination. Most recent CXR shows a possibility of aspiration PNA. She was started on Unasyn as he spiked a fever up to 101.6. * Cont to monitor for signs of infection, vitals per protocl - no fever in the past 24 hours * Discontinue the antibiotics # Atrial fibrillation * Stop INR monitoring # BPH * Continue home med Flomax # Diabetes * Monitor fingersticks, diabetic diet, place on insulin sliding scale # Colorectal cancer Patient does not wish any further aggressive management of his rectal cancer. # Chronic medical conditions * Continue home meds of Lopressor, lisinopril, statin for HTN/HLD * Cont home med gabapentin for neuropathy # Heart healthy diet # Mild pain pathway # DVT prophylaxis with Coumadin/on hold due to supratherapeutic # DNR/DNI Problem List: 1. Aortic stenosis 2. Traumatic arthritis of right knee 3. CHF (congestive heart failure) 4. Acute respiratory failure with hypoxia 5. Diabetes 6. Tobacco abuse 7. Flash pulmonary edema 8. Aspiration pneumonia Pain Ratin Pain Location: 0 Pain Goal: Remain pain free Pain Plan: Morphine Tomorrow's Labs & Rationales: None Consulting Request: Consulting Specialty: Cardiology ALMA MEHTA 11/28/16 1106: Attending MD Review Statement Attending Statement Attending MD Statement: examined this patient, discuss w/resident/PA/MACHINE ZIPPER TRIMMER, agreed w/resident/PA/MACHINE ZIPPER TRIMMER, discussed with family, reviewed EMR data (avail), discussed with nursing, discussed with case mgmt, reviewed images Attending Assessment/Plan: Old male with past medical history significant for COPD and obstructive sleep apnea is being admitted on the floor for acute hypoxic respiratory failure due to aspiration pneumonia and CHF. He is currently being treated for aspiration pneumonia with IV Unasyn and is being diuresed with IV Lasix along with BiPAP. Patient was seen and examined on the bedside and is somnolent. At times he gets agitated and pulls out his IVs for which a sitter is sitting beside him. The patient's family on the bedside. Patient was also recently diagnosed for cancer of the rectum and is not willing to pursue any further management for it. Patient is DNI/DNR with no ICU transfer or pressors. Patient remained stable with poor prognosis. Cardiology and pulmonary on board. Case discussed in detail with the patient's family who have decided to hopsice care. awaiting transfer to inpatient hospice. d/wed case management. Pulmonary has discussed case with family members in detail and agrees for future goals of care. Attending MD Statement: examined this patient, discuss w/resident/PA/MACHINE ZIPPER TRIMMER, agreed w/resident/PA/MACHINE ZIPPER TRIMMER, discussed with family, reviewed EMR data (avail), discussed with nursing, discussed with case mgmt, reviewed images Attending Assessment/Plan: Old male with past medical history significant for COPD and obstructive sleep apnea is being admitted on the floor for acute hypoxic respiratory failure due to aspiration pneumonia and CHF. He is currently being treated for aspiration pneumonia with IV Unasyn and is being diuresed with IV Lasix along with BiPAP. Patient was seen and examined on the bedside and is somnolent. At times he gets agitated and pulls out his IVs for which a sitter is sitting beside him. The patient's family on the bedside. Patient was also recently diagnosed for cancer of the rectum and is not willing to pursue any further management for it. Patient is DNI/DNR with no ICU transfer or pressors. Patient remained stable with poor prognosis. Cardiology and pulmonary on board. Case discussed in detail with the patient's family who have decided to hopsice care. awaiting transfer to inpatient hospice. d/wed case management. Pulmonary has discussed case with family members in detail and agrees for future goals of care.
[2016-11-28 07:00] VITALS: BP 140/50; BP 150/70
[2016-11-28 08:04] LABS: ABSOLUTE BASOPHIL COUNT 0 /CUMM (0.0-0.2); ABSOLUTE EOSINOPHIL COUNT 0.1 /CUMM (0.0-0.7); ABSOLUTE GRANULOCYTE CT 9.7 /CUMM (1.4-6.5); ABSOLUTE LYMPH COUNT 1.1 /CUMM (1.2-3.4); ABSOLUTE MONOCYTE COUNT 1.2 /CUMM (0.10-0.60); BASOPHIL % 0.4 % (0.0-2.0); EOSINOPHIL % 0.9 % (0-5); GRANULOCYTE % 80.1 % (42.2-75.2); HEMATOCRIT 31.9 % (42-52); MEAN CORPUSCULAR HGB 27.9 PG (27.0-31.0); MEAN CORPUSCULAR HGB CONC 31.9 G/DL (33.0-37.0); MEAN CORPUSCULAR VOLUME 87.3 FL (80.0-94.0); MEAN PLATELET VOLUME 7.6 FL (7.4-10.4); PLATELET COUNT 370 /CUMM (130-400); RED BLOOD CELL CT 3.65 /CUMM (4.70-6.10); WHITE BLOOD CELL COUNT 12.1 /CUMM (4.8-10.8)
[2016-11-28 08:42] LABS: PT 81.3 SEC (9.4-12.5)
--- NOTE | 2016-11-28 09:59 | PN- Pulmonary ---
Subjective HPI/Critical Care Issues: Doing poorly patient barely arousable does follow commands when he wakes up On high flow oxygen family at the bedside Patient wants to be made comfort at times drifting back to sleep when he wakes up Other history could not be obtained Objective Current Medications: Current Medications Sig/Elier Start time Last Medication Dose Route Stop Time Status Admin Acetaminophen 650 MG Q6 PRN 11/20 0545 AC 11/24 PO 1112 Albuterol Sulfate 3 ML BID 11/20 1000 AC 11/28 INH 0800 Ampicillin Sodium/ 1,500 MG Q6 11/24 1200 AC 11/28 Sulbactam Sodium IV 0532 Sodium Chloride 100 ML Atorvastatin Calcium 20 MG 1700 11/20 1700 AC 11/24 PO 1736 Furosemide 60 MG 7:30 AM, & 4:30 PM 11/26 1630 DC 11/28 IV 0820 Gabapentin 200 MG TID 11/20 1000 AC 11/27 PO 1046 Insulin Aspart 0 TIDAC 11/20 0800 AC 11/27 SC 1304 Metoprolol Tartrate 6.25 MG BID 11/20 1000 AC 11/27 PO 1046 Phytonadione 5 MG ONCE ONE 11/27 1830 DC 11/27 SC 11/27 1831 1939 Phytonadione 5 MG ONCE ONE 11/27 1645 CAN PO 11/27 1646 Polyethylene Glycol 17 GM DAILY 11/21 181 AC 11/27 PO 1046 Senna/Docusate Sodium 2 TAB DAILY 11/21 181 AC 11/27 PO 1047 Tamsulosin HCl 0.4 MG DAILY 11/20 1000 AC 11/27 PO 1046 Tiotropium [place] 1 PUF 1000 11/20 1000 AC 11/24 INH 1112 Vital Signs & I&O Last 24 Hrs of Vitals and I&O: Vital Signs Date Time Temp Pulse Resp B/P Pulse O2 O2 Flow FiO2 Ox Delivery Rate 11/28 0803 90 Nasal 95% Cannula 11/28 0800 90 Nasal 95% Cannula 11/28 0700 98.1 61 24 140/50 87 Nasal Cannula 11/28 0446 91 Nasal 95% Cannula 11/28 0027 60 90 11/28 0000 90 Nasal 95% Cannula 11/27 2300 98.8 62 26 136/58 90 Nasal 95% Cannula 11/27 2124 90 Nasal 95% Cannula 11/27 1908 90 Nasal 95% Cannula 11/27 1815 90 Nasal 95% Cannula 11/27 1800 90 Non 100% ReBreather 11/27 1717 99.7 62 26 96/50 97 11/27 1700 90 96 11/27 1600 97 BIPAP 100% 11/27 1454 60 92 11/27 1046 60 140/70 11/27 1046 60 140/70 Intake & Output 11/28 1600 11/28 0800 11/28 0000 Intake Total 150 0 Output Total 300 800 Balance -150 -800 Intake, IV 150 0 Intake, Oral 0 0 Number 0 Bowel Movements Output, Urine 300 800 Impression/Plan Impression/Plan Impression/Plan: eneral: On high flow oxygen less responsive Neck: supple, no JVD noted Cardiac: S1 and S2 heard, irregularly irregular Lungs: no respiratory distress or accessory muscle use, CTA bilaterally, no W/R/ R MSK: no LE edema, pedal pulses 2+ bilaterally Psych: appropriate and cooperative with exam IMPRESSION This is an elderly gentleman with history of significant smoking with atrial fibrillation/flutter on warfarin, morbid obesity with signs and symptoms suggestive of sleep apnea, pacemaker with pacemaker induced cardiomyopathy, diabetes, significant arthritis, came in with hypoxia chest tightness and dyspnea with aortic stenosis most likely related to fluid overload. His issues include * Significant hypoxemic and hypercarbic respiratory failure related to diastolic heart disease and significant pulmonary hypertension from chronic obesity hypoventilation syndrome and COPD. Pt may be developing aspiration pna aswell * Recently diagnosed large rectal cancer patient is refusing any kind of therapy wishes to be made comfort if he gets worse in the future. Has low-grade temperature now, pt may be translocating bacterial from the rectum * Confusion on and off due to prob hypercarbia with sun downing. He has hypercarbia related to sleep associated hypoventilation with COPD. * Atrial fibrillation flutter on warfarin with hyperlipidemia and diabetes which seems to be moderately well-controlled endocrine is on board * No clinical evidence suggestive of significant pneumonia * Pulmonary hypertension most likely related to diastolic heart disease aortic stenosis and probable sleep apnea * Chronic lung disease with evidence suggestive of mild COPD with chronic bronchitis * Significant degenerative joint disease * Worsening performance status RECOMMENDATION Discussed with the daughters and the family other family members are present in the room. As patient is clearly not improving and is getting worse per patient' s prior wishes family now is agreeable for comfort care only. Patient should be transferred upstairs to a private room with comfort care and transition to hospice tomorrow. They want to give 1 more day to the patient before he goes into the hospice team. Can discontinue all intravenous meds and use respiratory treatment and patient should be made Comfort Care and daughters are agreeable Can use low-dose morphine for dyspnea. Can discontinue antibiotics
--- NOTE | 2016-11-28 10:23 | Event Note ---
Event Note Event Note: Discussed and confirmed with the family about their final decision to pursue hospice. They were informed about the need for fluid resusccitation given his volume depletion and electrolyte disturbances (i.e. hypernatremia). They were informed that giving him fluid would most likely worsen his cardiopulmonary state and thus respiratory status. The family, including daughters, feel that the patient is already suffering at this point and any further measures (i.e. fluid resuscitation) would make him suffer even more. They are certain that this would be against the patient's wish.
--- NOTE | 2016-11-28 15:57 | Event Note ---
Event Note Event Note: Requested by the nursing staff around 2:30PM to evaluate the patient for unresponsiveness. Patient was unresponsive to verbal/pain stimuli. There were no heart sounds/pulses and signs of respiration on the physical exam. His pupils were dilated and unreactive to light. Tele monitoring showed aystole. Patient was pronounced at 2:35PM in the presence of family members at bedside. Attending physician was notified.
--- NOTE | 2016-11-28 15:58 | Discharge Summary ---
Visit Information Visit Dates Admission Date: 11/20/16 Discharge Date: 11/28/16 Hospital Course Course Attending Physician: ALMA MEHTA MD Primary Care Physician: CHERYL JESUS MD Consulting Request: Consulting Specialty: Cardiology Hospital Course: 86-year-old gentlemen with a PMH of COPD, hypertension, dyslipidemia, diabetes mellitus, cardiomyopathy, aortic stenosis, atrial fibrillation on warfarin s/p atrioventricular node ablation with initial permanent pacemaker implantation with generator replacements, HFpEF, recent diagnosis of exophytic upper rectal cancer s/p elective colonoscopy (11/17/2016), presents with worsening shortness of breath 2/2 CHF exacerbation. The following problems were addressed and managed: # Acute on chronic hypercapnic resp failure 2/2 acute on CHF (HFpEF) Patient required 5-6 liters of oxygen to maintain O2 sat boave 88%. ABG (11/24) consistent with compensated resp acidosis (pH 7.37, pCO2 79, pO2 79, HCO3 29). He received oxygen support as needed to maintain O2 sat > 92% and TRC neb tx as needed. Due to altered mental stauts likely due to hypercapnia patient was placed on BiPAP. # HFpEF Repeat CXR (11/21) consistently showed pulmonary edema with [id number] bilateral pleural effusions. Patient was diuresed with IV Lasix 60mg BID without much improvement. On 11/28, he was lethargic and nearly unresponsive, primarily due to severe electorlyte disturbances (flori. hypernatremia). Diuresis was stopped upon family's decision's to pursue hospice since the patient's mental and respiratory status acutely worsened. Patient on 11/28 after he was made comfort measures. # REY - Resolved Patient's creatinine trended upto 1.5 after being on Lasix 40mg BID IV for several days. REY resolved after holding Lasix for a day. # Aspiration pneumonia Patient has had a mild leukocytosis and fever on multiple occassions. Blood blood culture drawn on admission was positive in 1/2 bottles and grew coag negative and alpha strep, most likely due to contamination. Patient received 2 days of vancomycin which was discontinued as bcx shows coa negative which is most likely indicative of contamination. He passed the swallow test. Most recent CXR shows a possibility of aspiration PNA. He was started on Unasyn after spiking a fever up to 101.6. Patient was kept on IV Unasyn until he became comfort measures. # Atrial fibrillation Patient's INR was checked daily and warfarin was dosed accordingly. # BPH * Continued home med Flomax # Diabetes * Monitored fingersticks, diabetic diet, place on insulin sliding scale # Colorectal cancer Patient does not wish any further aggressive management of his rectal cancer. * Outpaitent GI followup # Chronic medical conditions * Continued home meds of Lopressor, lisinopril, statin for HTN/HLD * Continued home med gabapentin for neuropathy Allergies: Coded Allergies: NO KNOWN ALLERGIES (12/27/13) Disposition Summary Disposition Principal Diagnosis: CHF exacerbation Additional Diagnosis: COPD exacerbation Acute on chronic respiratory failure Discharge Disposition: Discharge Instructions General Discharge Information Code Status: Comfort Care Only Patient's Diet: Heart healthy Patient's Activity: As tolerated Follow-Up Instructions/Appts: N/A Medications at Discharge Discharge Medications: Continue taking these medications: Simvastatin (Simvastatin*) 40 MG TABLET 1 Tablet ORAL Every night Qty = 90 Metformin HCl (Metformin HCl) 1,000 MG TABLET 1 Tablet ORAL TWICE DAILY Qty = 180 Warfarin Sodium (Warfarin Sodium) 5 MG TABLET 1 Tablet ORAL 5 PM Qty = 90 Comments: 7.5 mg on Lisinopril (Lisinopril) 10 MG TABLET 1 Tablet ORAL DAILY Qty = 30 Comments: LAST TAKEN 06/18 AT 10AM Tiotropium [place] (Spiriva) 18 MCG CAP.W.DEV 1 Puff Inhale through mouth 1000 Days = 30 Comments: LAST TAKEN 06/18 AT 10AM Albuterol Sulfate (Ventolin Hfa) 18 GM HFA.AER.AD 2 Puff Inhale through mouth THREE TIMES A DAY NEEDED as needed for SHORTNESS OF BREATH Days = 30 Gabapentin (Gabapentin) 100 MG CAPSULE 200 Milligram ORAL THREE TIMES DAILY Days = 30 Comments: TAKEN 06/18/16 10AM Furosemide (Furosemide) 20 MG TABLET 20 Milligram ORAL 7:30AM & 4:30PM Days = 30 Comments: LAST TAKEN 06/18 AT 10AM Tamsulosin HCl (Flomax) 0.4 MG CAP.ER.24H 1 Capsule ORAL DAILY The following medications have been changed: Old: Metoprolol Tartrate (Metoprolol Tartrate) 25 MG TABLET 6.25 Tablet ORAL TWICE DAILY Qty = 60 New: Metoprolol Tartrate (Metoprolol Tartrate) 25 MG TABLET 12.5 Tablet ORAL DAILY Qty = 60 Comments: LAST TAKEN 06/18 AT 10AM Copies To: EDIN MIXON,CHERYL
== END 2016-11-28 14:35 | disposition expired | DRG 291 ==
LOC: ENRESERVTM → ENRESERVDT → ERH 01:31 → 1NO 04:49 → ERHI 04:49 → 1NO 05:53 → CMPBEDREQ 11:32 → 1NO 11-21 08:17
PROVIDERS: Internal Medicine; Pediatrics; Preventive Medicine Public Health & General Preventive Medicine; ADMIT Student in an Organized Health Care Education/Training Program
PROC: 5A09357 Assistance with Respiratory Ventilation, Less than 24 Consecutive Hours, Continuous Positive Airway Pressure (ICD-10-PCS; principal; 2016-11-20)
DX: I11.0 Hypertensive heart disease with heart failure (principal); J96.21 Acute and chronic respiratory failure with hypoxia; J69.0 Pneumonitis due to inhalation of food and vomit; E87.0 Hyperosmolality and hypernatremia; Z51.5 Encounter for palliative care; J96.22 Acute and chronic respiratory failure with hypercapnia; E11.40 Type 2 diabetes mellitus with diabetic neuropathy, unspecified; I48.92 Unspecified atrial flutter; F05 Delirium due to known physiological condition; E66.2 Morbid (severe) obesity with alveolar hypoventilation; C20 Malignant neoplasm of rectum; Z99.81 Dependence on supplemental oxygen; I27.2 Other secondary pulmonary hypertension; E87.5 Hyperkalemia; I35.0 Nonrheumatic aortic (valve) stenosis; I50.33 Acute on chronic diastolic (congestive) heart failure; J44.9 Chronic obstructive pulmonary disease, unspecified; I42.9 Cardiomyopathy, unspecified; I48.2 Chronic atrial fibrillation; Z87.891 Personal history of nicotine dependence; Z79.01 Long term (current) use of anticoagulants; Z68.33 Body mass index [BMI] 33.0-33.9, adult; E78.5 Hyperlipidemia, unspecified; N40.0 Benign prostatic hyperplasia without lower urinary tract symptoms; Z95.0 Presence of cardiac pacemaker; Z79.84 Long term (current) use of oral hypoglycemic drugs
CPT/HCPCS: 1NP; 36415; 82436; 87040; 87070; 87147; 87804; 87804-59; 88305; 93005; 93010; 93306; 94799; 96374; 97110-GO; 97116-GO; 97162-GP; 97530-GO; 99291; J0131; J0610; J1940; J2270; J3370; J3490; J7060